=== PATIENT | male | born 1930 | race Caucasian/White ===

== ENCOUNTER 2017-10-08 12:05 | Inpatient (IN) | payer MEDICARE, BC ==
[2017-10-08] MEDS ORDERED: SODIUM CHLORIDE 0.9% 1,000 ML IV STA (12:48)
[2017-10-08] MEDS ORDERED: ONDANSETRON 4 MG/2 ML VIAL IVP STA (12:48)
[2017-10-08] MEDS ORDERED: DOPamine DRIP 800 MG in DEXTROSE/WATER 1 500ML.BAG IV ONE (12:49)
[2017-10-08 13:14] LABS: Basophils # (A) 0.1 k/uL (0-0.2); Basophils % (A) 1 %; Eosinophils # (A) 0.4 k/uL (0-0.7); Eosinophils % (A) 5 %; HCT 38.1 % (39.0-53.0); HGB 12.9 gm/dL (13.0-17.5); Lymphocytes # (A) 1.9 k/uL (1.0-4.8); Lymphocytes % (A) 30 %; MCH 33.5 pg (25.0-35.0); MCHC 33.8 g/dL (31.0-37.0); MCV 99.3 fL (80.0-100.0); Mean Platelet Volume 7.6; Monocytes # (A) 0.6 k/uL (0-1.0); Monocytes % (A) 9 %; Neutrophils # (A) 3.4 k/uL (1.3-7.7); Neutrophils % (A) 53 %; Platelet Count 169 k/uL (150-450); RBC 3.83 m/uL (4.30-5.90); RDW 13.3 % (11.5-15.5); WBC 6.5 k/uL (3.8-10.6)
--- NOTE | 2017-10-08 13:22 | CT ---
EXAMINATION TYPE: CT brain wo con for TPA DATE OF EXAM: 10/08/2017 COMPARISON: NONE HISTORY: Altered mental status CT DLP: 999.8 mGycm Automated exposure control for dose reduction was used. TECHNIQUE: CT scan of the head is performed without contrast. FINDINGS: There is no acute intracranial hemorrhage or midline shift identified. There is diffuse v entricular and sulcal prominence consistent with diffuse age-related cerebral atrophy. There is low- attenuation in the periventricular white matter consistent with chronic small vessel ischemic change. The globes are intact and the visualized sinuses are clear. IMPRESSION: No acute intracranial hemorrhage or midline shift. There is diffuse age-related cerebra l atrophy and chronic small vessel ischemic change noted.
[2017-10-08 13:23] LABS: Albumin 3.7 g/dL (3.5-5.0); Calcium 9.2 mg/dL (8.4-10.2); INR 1.4 (<1.2); Partial Thromboplastin Time 22.1 sec (22.0-30.0); Potassium 5.5 mmol/L (3.5-5.1); Prothrombin Time 13.4 sec (9.0-12.0); Total Bilirubin 0.9 mg/dL (0.2-1.3); Total Protein 6.1 g/dL (6.3-8.2)
--- NOTE | 2017-10-08 13:34 | CT ---
EXAMINATION TYPE: CT angio head neck DATE OF EXAM: 10/08/2017 HISTORY: altered mental status COMPARISON: NONE CT DLP: 327 mGycm. Automated Exposure Control for Dose Reduction was Utilized. TECHNIQUE: CTA scan of the neck is performed with IV Contrast, patient injected with 65 mL of Isovue 370, axial images are obtained, coronal and sagittal reformatted images are reviewed. Three-D recons tructed images are created on an independent workstation and reviewed. FINDINGS: The common carotid arteries, internal carotid arteries in their cervical and intracranial portions, a nd vertebral arteries are patent. The main intracranial arteries are also patent without focal stenos is. Left vertebral artery is dominant. No dissection or occlusion are identified. Posterior communica ting arteries are diminutive and not well visualized. Utilized portions of the brain are discussed on the CT brain dictation of the same date. Extensive degenerative changes of the cervical spine are no maia as well as upper lung mild paraseptal emphysematous changes and scattered atelectasis. IMPRESSION: No evidence of hemodynamically significant stenosis, dissection or focal occlusion of th e arterial vasculature of the head or neck. Small vessel peripheral thrombi remain possible. Posterio r communicating arteries are diminutive and not well-visualized.
[2017-10-08 13:53] LABS: Troponin I 0.068 ng/mL (0.000-0.034)
--- NOTE | 2017-10-08 14:53 | XR ---
EXAMINATION TYPE: XR chest 2V DATE OF EXAM: 10/08/2017 COMPARISON: 11/04/2015 TECHNIQUE: PA and lateral views submitted. HISTORY: Altered mental status FINDINGS: Arthropathy of the shoulders with diffuse osteopenia. Atherosclerotic change aorta. Cardiomegaly stab le. Small left pleural effusion and bibasilar subsegmental consolidation. Degenerative change of the spine. Chronic rib deformities noted. IMPRESSION: 1. Left lower lobe infiltrate and small effusion. 2. Stable cardiomegaly.
[2017-10-08] MEDS ORDERED: ASPIRIN 81 MG PO STA (15:50)
[2017-10-08] MEDS ORDERED: cefTRIAXone 2,000 MG in SODIUM CHLORIDE 0.9% 100 ML IVPB STA (15:50)
--- NOTE | 2017-10-08 15:50 | ED ---
Altered Mental Status HPI - General Chief Complaint: Altered Mental Status Stated Complaint: Altered Mental Time Seen by Provider: 10/08/17 12:29 Source: EMS Mode of arrival: EMS Limitations: altered mental status - History of Present Illness Initial Comments: 87 years old male not in by the he is her daughter and grandson grandson lives with him patient and grandson 98 breakfast this morning 9:00 and he was fine about 10:30 when he was talking to his grandson grandson noticed that he was quite confused and is hard time getting the words out of his mouth, grandson said he is speech is mostly very Flovent and when he arrived in the ER he was able to comprehend the information back to his ability to say what he wanted to say was quite compromised and he had severe dysarthria, patient has a history of atrial fibrillation and he is on a Coumadin for the period review of system is unremarkable otherwise - Related Data Home Medications Medication Instructions Recorded Confirmed Levothyroxine Sodium [Synthroid] 150 mcg PO DAILY 11/04/15 10/08/17 Furosemide [Lasix] 40 mg PO BID 10/08/17 10/08/17 Metoprolol Tartrate [Lopressor] 12.5 mg PO BID 10/08/17 10/08/17 Potassium Chloride ER [K-Dur 20] 20 meq PO AC-BID 10/08/17 10/08/17 Warfarin [Coumadin] 5 mg PO MOWEFR 10/08/17 10/08/17 Previous Rx's Medication Instructions Recorded Lisinopril [Zestril] 10 mg PO DAILY #30 tab 11/07/15 Allergies Allergy/AdvReac Type Severity Reaction Status Date / Time No Known Allergies Allergy Verified 10/08/17 13:06 Review of Systems ROS Statement: Those systems with pertinent positive or pertinent negative responses have been documented in the HPI. ROS Other: All systems not noted in ROS Statement are negative. Past Medical History Past Medical History: Heart Failure, Deep Vein Thrombosis (DVT), Thyroid Disorder History of Any Multi-Drug Resistant Organisms: None Reported Past Surgical History: Appendectomy, Cholecystectomy, Orthopedic Surgery Past Psychological History: No Psychological Hx Reported Smoking Status: Never smoker Past Alcohol Use History: Occasional Past Drug Use History: None Reported General Exam - General Exam Comments Initial Comments: General: The patient is awake and able to follow the commands but is unable to say the words Skin: Skin is warm and dry and no rashes or lesions are noted. Eye: Pupils are equal, round and reactive to light, extra-ocular movements are intact; there is normal conjunctiva bilaterally. Ears, nose, mouth and throat: There are moist mucous membranes Neck: The neck is supple, there is no tenderness Cardiovascular: There is a fibb noticed severe bradycardia heart rate was 45- 79 during the examination Respiratory: To auscultation bilateral, no wheezing no rhonchi no distress respiratory herbert noticed Gastrointestinal: Soft, non-distended, non-tender abdomen without masses or organomegaly noted. There is no rebound or guarding present. Bowel sounds are unremarkable. Back: There is no tenderness to palpation in the midline. There is no obvious deformity. Musculoskeletal: Normal ROM, no tenderness, There is no pedal edema. There is no calf tenderness or swelling. No cords were appreciated. Neurological: CN II-XII intact, severe dysarthria, he was trying hard there are no words coming out of his mouth. Psychiatric: Cooperative, appropriate mood & affect, normal judgment. Limitations: altered mental status Course Vital Signs 10/08/17 10/08/17 10/08/17 12:40 12:55 13:00 Temperature 97.6 F Pulse Rate 37 L 47 L 62 Respiratory 18 18 18 Rate Blood Pressure 137/85 139/84 156/89 O2 Sat by Pulse 91 L 96 100 Oximetry 10/08/17 10/08/17 10/08/17 13:15 13:30 13:45 Temperature Pulse Rate 58 L 49 L 54 L Respiratory 16 18 18 Rate Blood Pressure 169/91 156/87 158/79 O2 Sat by Pulse 100 96 95 Oximetry 10/08/17 10/08/17 14:43 15:36 Temperature Pulse Rate 97 98 Respiratory 18 18 Rate Blood Pressure 168/96 167/87 O2 Sat by Pulse 97 95 Oximetry EKG is atrial fibrillation with a ventricular rate of 14 9 QRS duration is 92 QT /QTc is 476/429 review of this EKG does not reveal any ST elevation or ST depression noticed marked bradycardia the Medical Decision Making - Lab Data Result diagrams: 10/08/17 12:57 10/08/17 12:57 Lab Results 10/08/17 10/08/17 10/08/17 Range/Units 12:57 12:57 12:57 WBC 6.5 (3.8-10.6) k/uL RBC 3.83 L (4.30-5.90) m/uL Hgb 12.9 L (13.0-17.5) gm/dL Hct 38.1 L (39.0-53.0) % MCV 99.3 (80.0-100.0) fL MCH 33.5 (25.0-35.0) pg MCHC 33.8 (31.0-37.0) g/dL RDW 13.3 (11.5-15.5) % Plt Count 169 (150-450) k/uL Neutrophils % 53 % Lymphocytes % 30 % Monocytes % 9 % Eosinophils % 5 % Basophils % 1 % Neutrophils # 3.4 (1.3-7.7) k/uL Lymphocytes # 1.9 (1.0-4.8) k/uL Monocytes # 0.6 (0-1.0) k/uL Eosinophils # 0.4 (0-0.7) k/uL Basophils # 0.1 (0-0.2) k/uL PT (9.0-12.0) sec INR (<1.2) APTT (22.0-30.0) sec Sodium 137 (137-145) mmol/L Potassium 5.5 H (3.5-5.1) mmol/L Chloride 102 (98-107) mmol/L Carbon Dioxide 28 (22-30) mmol/L Anion Gap 7 mmol/L BUN 44 H (9-20) mg/dL Creatinine 1.20 (0.66-1.25) mg/dL Est GFR (CKD-EPI)AfAm 62 (>60 ml/min/1.73 sqM) Est GFR (CKD-EPI)NonAf 54 (>60 ml/min/1.73 sqM) Glucose 75 (74-99) mg/dL Calcium 9.2 (8.4-10.2) mg/dL Total Bilirubin 0.9 (0.2-1.3) mg/dL AST 35 (17-59) U/L ALT 40 (21-72) U/L Alkaline Phosphatase 69 (38-126) U/L Total Creatine Kinase 33 L (55-170) U/L CK-MB (CK-2) 2.0 (0.0-2.4) ng/mL CK-MB (CK-2) Rel Index 6.1 Troponin I 0.068 H* (0.000-0.034) ng/mL Total Protein 6.1 L (6.3-8.2) g/dL Albumin 3.7 (3.5-5.0) g/dL 10/08/17 Range/Units 12:57 WBC (3.8-10.6) k/uL RBC (4.30-5.90) m/uL Hgb (13.0-17.5) gm/dL Hct (39.0-53.0) % MCV (80.0-100.0) fL MCH (25.0-35.0) pg MCHC (31.0-37.0) g/dL RDW (11.5-15.5) % Plt Count (150-450) k/uL Neutrophils % % Lymphocytes % % Monocytes % % Eosinophils % % Basophils % % Neutrophils # (1.3-7.7) k/uL Lymphocytes # (1.0-4.8) k/uL Monocytes # (0-1.0) k/uL Eosinophils # (0-0.7) k/uL Basophils # (0-0.2) k/uL PT 13.4 H (9.0-12.0) sec INR 1.4 H (<1.2) APTT 22.1 (22.0-30.0) sec Sodium (137-145) mmol/L Potassium (3.5-5.1) mmol/L Chloride (98-107) mmol/L Carbon Dioxide (22-30) mmol/L Anion Gap mmol/L BUN (9-20) mg/dL Creatinine (0.66-1.25) mg/dL Est GFR (CKD-EPI)AfAm (>60 ml/min/1.73 sqM) Est GFR (CKD-EPI)NonAf (>60 ml/min/1.73 sqM) Glucose (74-99) mg/dL Calcium (8.4-10.2) mg/dL Total Bilirubin (0.2-1.3) mg/dL AST (17-59) U/L ALT (21-72) U/L Alkaline Phosphatase (38-126) U/L Total Creatine Kinase (55-170) U/L CK-MB (CK-2) (0.0-2.4) ng/mL CK-MB (CK-2) Rel Index Troponin I (0.000-0.034) ng/mL Total Protein (6.3-8.2) g/dL Albumin (3.5-5.0) g/dL Critical Care Time Total Critical Care Time: 60 Critical Care Time: She came in with a stroke, like picture his dysarthria started about 2 and half hours prior to his ER visit head CT was done CT angiogram was done along and discussed with the neurologist china and silverware salesperson neurologist will get the CT and the ruled out any headaches. His INR for his chronic atrial fibrillation neurologist recommended that we continue him on aspirin 325 mg and then now MRI later a consult neurology. Noticed that his heart rate was quite low was 44-49 at that point troponin Was started and that normalized his blood pressure as well as his heart rate and then in the meantime his neurological symptoms cleared up GCS became 15 dysarthria disappeared. Is reviewed his CT head and CTA head and neck injury or unremarkable INR is 1.4 CBC is normal chest x-rays normal troponin was 0.068 and EKG had his significant bradycardia patient diagnoses are now considering his symptoms of neuro deficits resolved TIA, bradycardia and then noticed that he has a pneumonia on the chest x-ray as well elevated troponin/myocardial infarction and he also has attacked by a bee he be admitted to [facility] and neurology be consulted Dr. Wheat and cardiology be consulted and I will heparinize him at this point considering his neurological status because neurologist china and silverware salesperson recommended that we'll hold off the Coumadin do the MRI and the neurology will decide when to restart the Coumadin but he will give him aspirin 325 by mouth now Disposition Clinical Impression: TIA (transient ischemic attack), Bradycardia, Pneumonia, Myocardial infarction , Tick bite Disposition: ADMITTED IP TO THIS [facility] Condition: Good Referrals: Eber Cullen MD [Primary Care Provider] - 1-2 days
[2017-10-08] MEDS ORDERED: AZITHROMYCIN 500 MG TAB PO STA (15:51)
[2017-10-08] MEDS ORDERED: ONDANSETRON 4 MG/2 ML VIAL IVP PRN (15:53)
[2017-10-08] MEDS ORDERED: MORPHINE SULFATE 2 MG/ML SYRINGE IV PRN (15:53)
[2017-10-08] MEDS ORDERED: NALOXONE 0.4 MG/ML 1 ML VIAL IV PRN (15:53)
[2017-10-08] MEDS ORDERED: ACETAMINOPHEN TAB 325 MG TAB PO PRN (15:53)
[2017-10-08] MEDS ORDERED: cefTRIAXone IN SWFI 2,000 MG/20 ML SYRINGE IVP ONE (16:00)
[2017-10-08 17:14] LABS: Glucose,Whole Blood 81 mg/dL (75-99)
[2017-10-08] MEDS ORDERED: POTASSIUM CHLORIDE ER 20 MEQ TAB.ER PO SCH (17:30)
[2017-10-08] MEDS ORDERED: FUROSEMIDE 10 MG/ML 4 ML VIAL IV STA (17:50)
[2017-10-08] MEDS ORDERED: LORazepam 2 MG/ML INJ IV PRN ×3 (17:50)
--- NOTE | 2017-10-08 17:54 | P.HPIM ---
History of Present Illness H&P Date: 10/08/17 Chief Complaint: aphasia Patient is an 87-year-old male with a history of congestive heart failure, dyslipidemia, and A. fib who presented to the emergency department via EMS for a aphasia. The patient had been speaking with his grandson around 10: 30 AM and became unable to pronounce words and confused. At that point in time they did some generalized testing and the patient was moving all 4 limbs adequately. They called EMS with concern for stroke. On EMS arrival per family his heart rate was in the 30s and his blood pressure was low. They administered 0.5 of atropine. By the time he arrived to our ER his heart rate was 37. He was placed on a dopamine drip. Her the ER physician once his heart rate had improved his symptoms resolved. On arrival he had an NIH shook scale for was unable to talk. [facility] was contacted area he underwent a head CT which showed age-appropriate atrophy, a CTA of the head and neck which showed no significant stenosis, and an EKG which showed A. fib with slow ventricular response. Troponin came back slightly elevated at 0.068. [facility] suggested aspirin daily and holding his Coumadin until formal evaluation by neurology. Laboratory analysis showed a slightly elevated potassium at 5.5 and a low INR at 1.4. Cardiology was contacted by the ER and recommended continuing the dopamine drip. The ICU for further monitoring and care. Patient seen and examined at bedside in the emergency department. He was able to converse normally, but infrequently had to stop and think affords. Family was present at bedside and recalls the story as listed above. Patient states he was unaware that he was unable to talk. Grandson also reports that he was slightly confused. He was completely normal and had a typical day yesterday and this morning prior to 10:30 AM. He states that his confusion and difficulty speaking resolved when his heart rate improved. He denies any recent illnesses such as cough, cold, fever, flu, chest pain, shortness of breath, and palpitations. He was seen earlier this week and Dr. murray is office due to having had a tick bite approximately 9 days ago and having erythema migrans. They sent Lyme's disease testing at that point in time, but they have not yet heard back from the office. He also noted that this week he had a reoccurrence of his right knee fluid. He has the infrequently after many surgeries. He required this to be drained and had a corticosteroid injection afterwards. He sees Dr. Moody but has not had any recent medication changes. He denies any headache, blurry vision, or double vision at this point in time. He denies any neck pain. He complains of urinary frequency that is secondary to his Lasix. He has chronic loose stools due to his medications but no other complaints currently. Review of Systems Positive: + Aphasia, + confusion Pertinent positives and negatives as discussed in HPI, a complete review of systems was performed and all other systems are negative. 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 Has a medical alert system and is checked on frequently. He uses a 4 wheeled walker and a motorized scooter. - Past Family History Brother(s) Additional Family Medical History / Comment(s): osteomyelitis Mother Family Medical History: No Reported History Father Family Medical History: No Reported History Medications and Allergies Home Medications Medication Instructions Recorded Confirmed Type Levothyroxine Sodium [Synthroid] 150 mcg PO DAILY 11/04/15 10/08/17 History Lisinopril [Zestril] 10 mg PO DAILY #30 tab 11/07/15 10/08/17 Rx Furosemide [Lasix] 40 mg PO TID 10/08/17 10/08/17 History Metoprolol Tartrate [Lopressor] 12.5 mg PO TID 10/08/17 10/08/17 History Potassium Chloride ER [K-Dur 20] 20 meq PO AC-TID 10/08/17 10/08/17 History Warfarin [Coumadin] 5 mg PO MOWEFR 10/08/17 10/08/17 History Allergies Allergy/AdvReac Type Severity Reaction Status Date / Time No Known Allergies Allergy Verified 10/08/17 13:06 Physical Exam Osteopathic Statement: *. No significant issues noted on an osteopathic structural exam other than those noted in the History and Physical/Consult. Vitals: Vital Signs Temp Pulse Resp BP Pulse Ox 10/08/17 16:38 66 18 152/75 95 10/08/17 15:36 98 18 167/87 95 10/08/17 14:43 97 18 168/96 97 10/08/17 13:45 54 L 18 158/79 95 10/08/17 13:30 49 L 18 156/87 96 10/08/17 13:15 58 L 16 169/91 100 10/08/17 13:00 62 18 156/89 100 10/08/17 12:55 47 L 18 139/84 96 10/08/17 12:40 97.6 F 37 L 18 137/85 91 L Intake and Output 10/08/17 10/08/17 10/08/17 06:59 14:59 22:59 Intake Total 50.111 Balance 50.111 Intake: Intake, IV Titration 50.111 Amount DOPamine DRIP 800 mg In 50.111 Dextrose/Water 1 500ml. bag @ 10 MCG/KG/MIN 28.91 mls/hr IV .[id number] ONE Rx#:[id number] Other: Weight 77.111 kg General: non toxic, no distress, years younger than stated age, normal weight Derm: Lesion right thigh with a necrotic center and surrounding erythema no unusual ecchymoses, warm, dry Head: atraumatic, normocephalic, symmetric Eyes: EOMI, no lid lag, anicteric sclera, pupils equal round reactive to light ENT: Nose and ears atraumatic, no thrush, no pharyngeal erythema Neck: No thyromegaly, no cervical lymphadenopathy, trachea midline, supple Mouth: no lip lesion, mucus membranes moist Cardiovascular: S1-S2 regular, no murmur, positive posterior tibial pulse bilateral, 1+ bilateral lower extremity edema, capillary refill less than 2 seconds Lungs: CTA bilateral, no rhonchi, no rales , no accessory muscle use Abdominal: soft, nontender to palpation, no guarding, no appreciable organomegaly, normal bowel sounds Ext: no gross muscle atrophy, muscle strength 5 out of 5 in all 4 extremities grossly, no contractures, Neuro: CN II-XI intact, light touch intact all 4 extremities, finger to nose within normal limits, intermittent slow to speak with appropriate pronunciation but appears to have word finding difficulties Psych: Alert, oriented, appropriate affect Results CBC & Chem 7: 18 12:57 10/08/17 12:57 Labs: Abnormal Lab Results - Last 24 Hours (Table) 10/08/17 10/08/17 10/08/17 Range/Units 12:57 12:57 12:57 RBC 3.83 L (4.30-5.90) m/uL Hgb 12.9 L (13.0-17.5) gm/dL Hct 38.1 L (39.0-53.0) % PT (9.0-12.0) sec INR (<1.2) Potassium 5.5 H (3.5-5.1) mmol/L BUN 44 H (9-20) mg/dL Total Creatine Kinase 33 L (55-170) U/L Troponin I 0.068 H* (0.000-0.034) ng/mL Total Protein 6.1 L (6.3-8.2) g/dL 10/08/17 Range/Units 12:57 RBC (4.30-5.90) m/uL Hgb (13.0-17.5) gm/dL Hct (39.0-53.0) % PT 13.4 H (9.0-12.0) sec INR 1.4 H (<1.2) Potassium (3.5-5.1) mmol/L BUN (9-20) mg/dL Total Creatine Kinase (55-170) U/L Troponin I (0.000-0.034) ng/mL Total Protein (6.3-8.2) g/dL Chest x-ray: image reviewed (chest x-ray reviewed no definitive left lower lobe infiltrate seen-appears the same and his chest x-ray from 2016) CT scan - chest: report reviewed Thrombosis Risk Factor Assmnt - DVT/VTE Prophylaxis DVT/VTE Prophylaxis: Pharmacologic Prophylaxis ordered Assessment and Plan Assessment: transient ischemic attack with near resolution of a aphasia -Aspirin, statin -Neurology consultation, Coumadin on hold for telemetry neurology -Echo, telemetry, lipid profile -CTA head and neck normal -PT/OT/speech therapy evaluation -consider MRI if symptoms recur -Discharge planning symptomatic bradycardia, with baseline A. fib -Cardiology recommendations -Continue dopamine drip as per cardiology -Hold metoprolol -Telemetry -check echo -Hold Coumadin as listed above due to neurology recommendations elevated troponin without chest pain -suspect secondary to bradycardia versus TIA versus chronic elevation -Cycle troponins -ASA -Cardiology recommendations -Check cholesterol profile in a.m. Hyperkalemia -stop potassium replacement and lisinopril -Ksix X 1, IVF -Repeat basic metabolic profile in 4 hours recent tick exposure with erythema migrans (now associated with bradycardia but no sign of third-degree heart block patient also had fluid on right knee) -ID consultation -Start doxycycline 100 mg twice a day -Draw Lyme's titers ETOH abuse - CIWA - thiamine, folic acid Hypertension, controlled - may be elevated due to dopamine gtt and will need to observe -Off Lopressor -Off lisinopril -Follow blood pressures -Anticipate they may be elevated due to dopamine Hypothyroidism -Continue Synthroid -Check TSH Surrogate decision-maker: Philip Kendall , home [phone] , or rand Lorenzo [phone] CODE STATUS:DNR, okay with cardioversion, vasopressor, antiarrhythmics, intubation DVT prophylaxis: Lovenox Discussed with: Patient, family, ED physician, ED nursing Anticipated discharge: 3-4 days due TIA, bradycardia on dopamine Anticipated discharge place: home with home niko vs SNF A total of 75 minutes was spent on the care of this complex patient more than 50 % of the time was spent in counseling and care coordination.
[2017-10-08 17:59] VITALS: BMI 27.6
[2017-10-08] MEDS: DOPamine DRIP 800 MG in DEXTROSE/WATER 1 500ML.BAG IV SCH (18:00)
[2017-10-08] MEDS: THIAMINE 100 MG TAB PO SCH (18:07)
[2017-10-08 18:27] LABS: Appearance,Urine Clear (Clear); Bilirubin,Urine Negative (Negative); Blood,Urine Negative (Negative); Color,Urine Light Yellow; Glucose,Urine (UA) Negative (Negative); Ketones,Urine Negative (Negative); Leukocyte Esterase,Urine Negative (Negative); Nitrite,Urine Negative (Negative); Protein,Urine Negative (Negative); Specific Gravity,Urine 1.014 (1.001-1.035); Urobilinogen,Urine <2.0 mg/dL (<2.0)
[2017-10-08 19:08] LABS: Calcium 9.6 mg/dL (8.4-10.2); Potassium 4.3 mmol/L (3.5-5.1)
[2017-10-08] MEDS ORDERED: FUROSEMIDE 40 MG TAB PO SCH (21:00)
[2017-10-08] MEDS: ATORVASTATIN 40 MG TAB PO SCH (21:44)
[2017-10-08] MEDS: DOXYCYCLINE MONOHYDRATE 100 MG CAPSULE PO SCH (21:44)
[2017-10-09 02:01] LABS: Basophils # (A) 0.1 k/uL (0-0.2); Basophils % (A) 1 %; Eosinophils # (A) 0.3 k/uL (0-0.7); Eosinophils % (A) 4 %; HCT 40.4 % (39.0-53.0); HGB 13.3 gm/dL (13.0-17.5); Lymphocytes # (A) 1.2 k/uL (1.0-4.8); Lymphocytes % (A) 15 %; MCH 33.1 pg (25.0-35.0); MCHC 32.9 g/dL (31.0-37.0); MCV 100.5 fL (80.0-100.0); Mean Platelet Volume 7.2; Monocytes # (A) 0.7 k/uL (0-1.0); Monocytes % (A) 9 %; Neutrophils # (A) 5.6 k/uL (1.3-7.7); Neutrophils % (A) 70 %; Platelet Count 142 k/uL (150-450); RBC 4.02 m/uL (4.30-5.90); RDW 13.1 % (11.5-15.5); WBC 8.1 k/uL (3.8-10.6)
[2017-10-09 02:12] LABS: Anion Gap 11 mmol/L; Blood Urea Nitrogen 35 mg/dL (9-20); Calcium 8.9 mg/dL (8.4-10.2); Carbon Dioxide 21 mmol/L (22-30); Chloride 105 mmol/L (98-107); Cholesterol 152 mg/dL (<200); Glucose 134 mg/dL (74-99); HDL Cholesterol 63 mg/dL (40-60); LDL Cholesterol,Calculated 70 mg/dL (0-99); Magnesium 2.2 mg/dL (1.6-2.3); Phosphorus 3.6 mg/dL (2.5-4.5); Potassium 3.9 mmol/L (3.5-5.1); Sodium 137 mmol/L (137-145); Triglycerides 95 mg/dL (<150)
[2017-10-09 03:09] LABS: T4, Free (Free Thyroxine) 1.85 ng/dL (0.78-2.19)
[2017-10-09] MEDS ORDERED: LEVOTHYROXINE 75 MCG TAB PO SCH (06:30)
[2017-10-09] MEDS ORDERED: Potassium Replacement Protocol 1 EACH MISC MISCELLANE PRN (08:10)
[2017-10-09] MEDS: ASPIRIN 325 MG TAB PO SCH (08:26)
[2017-10-09] MEDS: PANTOPRAZOLE 40 MG/10 ML VIAL IV SCH (08:26)
[2017-10-09] MEDS: DOXYCYCLINE MONOHYDRATE 100 MG CAPSULE PO SCH ×2 (08:26→20:05)
--- NOTE | 2017-10-09 08:34 | P.PN ---
Subjective Progress Note Date: 10/09/17 Principal diagnosis: aphasia Patient is an 87-year-old male with a history of congestive heart failure, dyslipidemia, and A. fib who presented to the emergency department via EMS for a aphasia. The patient had been speaking with his grandson around 10: 30 AM and became unable to pronounce words and confused. At that point in time they did some generalized testing and the patient was moving all 4 limbs adequately. They called EMS with concern for stroke. On EMS arrival per family his heart rate was in the 30s and his blood pressure was low. They administered 0.5 of atropine. By the time he arrived to our ER his heart rate was 37. He was placed on a dopamine drip. Per the ER physician once his heart rate had improved his symptoms resolved. On arrival he had an NIH stroke scale 4 was unable to talk. [facility] was contacted and he underwent a head CT which showed age-appropriate atrophy, a CTA of the head and neck which showed no significant stenosis, and an EKG which showed A. fib with slow ventricular response. Troponin came back slightly elevated at 0.068. [facility] suggested aspirin daily and holding his Coumadin until formal evaluation by neurology. Laboratory analysis showed a slightly elevated potassium at 5.5 and a low INR at 1.4. Cardiology was contacted by the ER and recommended continuing the dopamine drip. He was admitted to the ICU for further monitoring and care. Overnight on 10/08 with the dopamine gtt he had one 7 beat run of v-tach. He was anxious over the evening but has otherwise done well. Patient seen and examined. He has no complaints at this time. He was anxious last night as he accidentally turned off his bed and could not move. No chest discomfort, palpitations, nausea, shortness of breath. He denies being light headed or dizzy. Feeling well other herbert. Nursing present at bedside. Objective - Vital Signs Vital signs: Vital Signs Temp 98.1 F 10/09/17 08:00 Pulse 62 10/09/17 08:00 Resp 11 L 10/09/17 08:00 BP 122/64 10/09/17 08:00 Pulse Ox 100 10/09/17 08:00 Intake & Output 10/08/17 10/09/17 10/09/17 18:59 06:59 18:59 Intake Total 411.630 1378 504.604 Output Total 350 2600 0 Balance -99.889 -1080 504.604 Weight 84.9 kg 94.2 kg Intake: IV 200 1200 200 Sodium Chloride 0.9% 1, 200 1200 200 000 ml @ 100 mls/hr IV . Q10H [facility] Rx#:[id number] Intake, IV Titration 50.111 304.604 Amount DOPamine DRIP 800 mg In 50.111 Dextrose/Water 1 500ml. bag @ 10 MCG/KG/MIN 28.91 mls/hr IV .[id number] ONE Rx#:[id number] DOPamine DRIP 800 mg In 304.604 Dextrose/Water 1 500ml. bag @ 7.5 MCG/KG/MIN 21. 68 mls/hr IV .Q23H4M [facility] Rx#:[id number] Oral 320 Output: Urine 350 2600 0 Other: Voiding Method Urinal Urinal Urinal # Voids 1 1 # Bowel Movements 0 - Exam General: non toxic, no distress, appears at stated age Derm: warm, dry Head: atraumatic, normocephalic, symmetric Eyes: EOMI, no lid lag, anicteric sclera Mouth: no lip lesion, mucus membranes moist Cardiovascular: S1S2 irreg, no murmur, positive posterior tibial pulse bilateral , Lungs: CTA bilateral, no rhonchi, no rales , no accessory muscle use Abdominal: soft, nontender to palpation, no guarding, no appreciable organomegaly Ext: no gross muscle atrophy, no edema, no contractures Neuro: CN II-XI grossly intact, no focal neuro deficits, still with slow speaking a searching for words but intact pronunciation. Psych: Alert, oriented, appropriate affect - Labs CBC & Chem 7: 10/09/17 01:35 10/09/17 01:35 Labs: Abnormal Lab Results - Last 24 Hours (Table) 10/08/17 10/08/17 10/08/17 Range/Units 12:57 12:57 12:57 RBC 3.83 L (4.30-5.90) m/uL Hgb 12.9 L (13.0-17.5) gm/dL Hct 38.1 L (39.0-53.0) % MCV (80.0-100.0) fL Plt Count (150-450) k/uL PT (9.0-12.0) sec INR (<1.2) Potassium 5.5 H (3.5-5.1) mmol/L Carbon Dioxide (22-30) mmol/L BUN 44 H (9-20) mg/dL Glucose (74-99) mg/dL Total Creatine Kinase 33 L (55-170) U/L Troponin I 0.068 H* (0.000-0.034) ng/mL Total Protein 6.1 L (6.3-8.2) g/dL HDL Cholesterol (40-60) mg/dL TSH (0.465-4.680) mIU/L 10/08/17 10/08/17 10/08/17 Range/Units 12:57 18:43 18:43 RBC (4.30-5.90) m/uL Hgb (13.0-17.5) gm/dL Hct (39.0-53.0) % MCV (80.0-100.0) fL Plt Count (150-450) k/uL PT 13.4 H (9.0-12.0) sec INR 1.4 H (<1.2) Potassium (3.5-5.1) mmol/L Carbon Dioxide (22-30) mmol/L BUN 39 H (9-20) mg/dL Glucose 108 H (74-99) mg/dL Total Creatine Kinase (55-170) U/L Troponin I 0.081 H* (0.000-0.034) ng/mL Total Protein (6.3-8.2) g/dL HDL Cholesterol (40-60) mg/dL TSH (0.465-4.680) mIU/L 10/09/17 10/09/17 10/09/17 Range/Units 01:35 01:35 01:35 RBC 4.02 L (4.30-5.90) m/uL Hgb (13.0-17.5) gm/dL Hct (39.0-53.0) % MCV 100.5 H (80.0-100.0) fL Plt Count 142 L (150-450) k/uL PT (9.0-12.0) sec INR (<1.2) Potassium (3.5-5.1) mmol/L Carbon Dioxide 21 L (22-30) mmol/L BUN 35 H (9-20) mg/dL Glucose 134 H (74-99) mg/dL Total Creatine Kinase (55-170) U/L Troponin I 0.142 H* (0.000-0.034) ng/mL Total Protein (6.3-8.2) g/dL HDL Cholesterol 63 H (40-60) mg/dL TSH <0.015 L (0.465-4.680) mIU/L Assessment and Plan Assessment: Aphasia- possible due to hypoprefusion from low HR/BP vs TIA -Aspirin, statin -Neurology consultation pending, Coumadin on hold for telemetry neurology -Echo, telemetry, - lipid profile with LDL at goal -CTA head and neck normal -PT/OT/speech therapy evaluation -consider MRI if symptoms recur -Discharge planning symptomatic bradycardia, with baseline A. fib -Cardiology recommendations -Continue dopamine drip as per cardiology -Hold metoprolol -Telemetry -check echo -Hold Coumadin as listed above due to neurology recommendations elevated troponin without chest pain -elevating slightly will cycle one additional -ASA -Cardiology recommendations recent tick exposure with erythema migrans (now associated with bradycardia but no sign of third-degree heart block patient also had fluid on right knee) -ID consultation - doxycycline 100 mg twice a day - Lyme's titers pending ETOH abuse - CIWA - thiamine, folic acid Hypertension, controlled -Off Lopressor -Off lisinopril -Follow blood pressures Hypothyroidism -Continue Synthroid -TSH undetectable, will repeat in AM to ensure accurate results and hold todays dose of levothyroxine. Hyperkalemia, resolved Surrogate decision-maker: Philip Kendall , home [phone] , or rand Lorenzo [phone] CODE STATUS:DNR, okay with cardioversion, vasopressor, antiarrhythmics, intubation DVT prophylaxis: Lovenox Discussed with: Patient, family, ED physician, ED nursing Anticipated discharge: 3-4 days due TIA, bradycardia on dopamine Anticipated discharge place: home with home niko vs SNF A total of 75 minutes was spent on the care of this complex patient more than 50 % of the time was spent in counseling and care coordination.
[2017-10-09] MEDS ORDERED: POTASSIUM CHLORIDE ER 20 MEQ TAB.ER PO SCH (09:00)
[2017-10-09] MEDS ORDERED: LISINOPRIL 10 MG TAB PO SCH (09:00)
[2017-10-09 09:15] LABS: INR 1.5 (<1.2)
[2017-10-09] MEDS: FOLIC ACID 1 MG TAB PO SCH (11:21)
[2017-10-09] MEDS: THIAMINE 100 MG TAB PO SCH ×2 (11:21→17:47)
[2017-10-09] MEDS: DOPamine DRIP 800 MG in DEXTROSE/WATER 1 500ML.BAG IV SCH (13:08)
--- NOTE | 2017-10-09 13:33 | P.CNPUL ---
History of Present Illness Consult date: 10/09/17 Requesting physician: Carmen Cross Reason for consult: other (ICU management) Chief complaint: Altered mental status and difficulty with speech History of present illness: This is an 87-year-old white male brought in by his grandson who lives with them , he noticed that he became suddenly confused, and had significant difficulty getting the words out of his mouth. Apparently the patient is usually very fluent, and he never had any issues like this before. No previous history of CVA, no previous history of TIA, patient is known to have history of chronic atrial fibrillation, maintained on Coumadin and on beta blockers. Workup in the ER included a CT angiogram of the head and neck, and it was relatively unremarkable, did not explain the clinical presentation. EKG showed atrial fibrillation with very slow ventricular response, chest x-ray showed left lower lobe atelectasis, and cardiomegaly. In the meantime his symptoms of aphasia have completely resolved. And according to the patient it lasted about 2 hours. Workup for acute CVA was basically unremarkable. According to EMS, his heart rate was in the 13 range and he had a low blood pressure while in transfer. Patient received 1 dose of atropine, and by the time he arrived to the ER his heart rate remained as low as 37, started on dopamine drip troponin was slightly elevated, cardiology and neurology were consulted, patient was admitted to the intensive care unit, on dopamine drip, and I was asked to see him on consultation. Upon my evaluation today, patient is relatively asymptomatic, denies any specific complaints, his speech is back to normal denies any headaches, no blurred vision, no dizziness, no chest pain. Patient remains on dopamine, and his heart rate remains relatively in the low range. Mostly in the 50s and 60s. His home meds including metoprolol and lisinopril remains on hold. And his potassium is also on hold. Review of Systems 14 point review of systems were obtained, please refer to pertinent positives in HPI, otherwise remaining systems are negative. Presently the patient is asymptomatic. 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, bilateral cataract replacement Past Anesthesia/Blood Transfusion Reactions: No Reported Reaction Past Psychological History: No Psychological Hx Reported Smoking Status: Never smoker Past Alcohol Use History: Daily Additional Past Alcohol Use History / Comment(s): drinks 3 beers every night Past Drug Use History: None Reported - Past Family History Brother(s) Additional Family Medical History / Comment(s): osteomyelitis Mother Family Medical History: No Reported History Father Family Medical History: No Reported History Medications and Allergies Home Medications Medication Instructions Recorded Confirmed Type Levothyroxine Sodium [Synthroid] 150 mcg PO DAILY 11/04/15 10/08/17 History Lisinopril [Zestril] 10 mg PO DAILY #30 tab 11/07/15 10/08/17 Rx Furosemide [Lasix] 40 mg PO TID 10/08/17 10/08/17 History Metoprolol Tartrate [Lopressor] 12.5 mg PO TID 10/08/17 10/08/17 History Potassium Chloride ER [K-Dur 20] 20 meq PO AC-TID 10/08/17 10/08/17 History Warfarin [Coumadin] 5 mg PO MOWEFR 10/08/17 10/08/17 History Allergies Allergy/AdvReac Type Severity Reaction Status Date / Time No Known Allergies Allergy Verified 10/08/17 13:06 Physical Exam Vitals: Vital Signs Temp Pulse Pulse Resp BP BP Pulse Ox 10/09/17 13:00 58 L 21 137/79 100 10/09/17 12:30 60 21 137/79 100 10/09/17 12:00 98.0 F 77 20 129/75 98 10/09/17 11:30 67 20 129/75 97 10/09/17 11:00 63 14 111/64 100 10/09/17 10:30 53 L 27 H 111/64 100 10/09/17 10:00 62 18 107/58 100 10/09/17 09:30 53 L 21 107/58 100 10/09/17 09:24 100 10/09/17 09:00 57 L 25 H 101/58 100 10/09/17 08:30 63 16 101/58 100 10/09/17 08:00 98.1 F 62 11 L 122/64 100 10/09/17 07:30 56 L 16 122/64 100 10/09/17 07:00 55 L 22 113/68 100 10/09/17 06:30 66 23 113/68 99 10/09/17 06:00 66 25 H 116/70 100 10/09/17 05:30 70 20 116/70 100 10/09/17 05:00 57 L 19 125/66 100 10/09/17 04:30 57 L 18 125/66 100 10/09/17 04:00 98.2 F 60 16 107/60 100 10/09/17 03:30 63 20 107/60 99 10/09/17 02:30 67 24 121/69 92 L 10/09/17 02:00 73 20 114/61 95 10/09/17 01:00 66 18 111/66 97 10/09/17 00:00 98.6 F 71 28 H 112/54 98 10/08/17 23:00 70 23 112/56 100 10/08/17 22:00 69 16 140/77 97 10/08/17 21:30 51 L 13 140/77 100 10/08/17 21:16 55 L 15 128/70 99 10/08/17 21:00 56 L 18 128/70 100 10/08/17 20:00 98.5 F 68 18 137/74 96 10/08/17 19:54 93 L 10/08/17 19:10 64 9 L 138/70 99 10/08/17 19:00 59 L 18 138/70 99 10/08/17 18:50 63 18 138/70 100 10/08/17 18:40 61 19 138/70 100 10/08/17 18:30 64 13 138/70 94 L 10/08/17 18:20 67 21 138/70 95 10/08/17 18:10 57 L 23 142/73 96 10/08/17 18:00 63 18 142/73 94 L 10/08/17 17:50 67 18 142/73 96 10/08/17 17:40 59 L 22 142/73 94 L 10/08/17 17:30 55 L 18 142/73 98 10/08/17 17:20 98.5 F 67 22 142/73 10/08/17 17:13 74 10/08/17 16:38 66 18 152/75 95 10/08/17 16:33 98.5 F 56 L 18 140/79 99 10/08/17 15:36 98 18 167/87 95 10/08/17 14:43 97 18 168/96 97 10/08/17 13:45 54 L 18 158/79 95 10/08/17 13:30 49 L 18 156/87 96 Intake and Output 10/08/17 10/09/17 10/09/17 22:59 06:59 14:59 Intake Total 870.439 1883 1324.811 Output Total 1700 1250 675 Balance -929.889 -250 649.811 Intake: IV 600 800 250 Sodium Chloride 0.9% 1, 600 800 250 000 ml @ 100 mls/hr IV . Q10H [facility] Rx#:[id number] Intake, IV Titration 50.111 414.811 Amount DOPamine DRIP 800 mg In 50.111 Dextrose/Water 1 500ml. bag @ 10 MCG/KG/MIN 28.91 mls/hr IV .[id number] [facility] Rx#:[id number] DOPamine DRIP 800 mg In 414.811 Dextrose/Water 1 500ml. bag @ 7.5 MCG/KG/MIN 21. 68 mls/hr IV .Q23H4M [facility] Rx#:[id number] Oral 120 200 660 Output: Urine 1700 1250 675 Other: Voiding Method Urinal Urinal Urinal # Voids 1 1 # Bowel Movements 0 Weight 84.9 kg 94.2 kg Physical Exam: Revealed an 87-year-old white male, in no form of respiratory distress. Head: Atraumatic, normocephalic. HEENT:[Neck is supple.] [No neck masses.] [No thyromegaly.] [No JVD.] PERRLA, EOMI, moist mucous membranes. Chest: [Clear throughout, no crackles, no rhonchi, no wheezes.] No chest wall tenderness, symmetrical expansion noted bilaterally. Cardiac Exam: [Irregular irregular rhythm, slow rate, Normal S1 and S2, no S3 gallop, no murmur.] Abdomen: [Soft, nontender, no megaly, no rebound, no guarding, normal bowel sounds.] Extremities: [No clubbing, no edema, no cyanosis.] Neurological Exam: [No focal neurologic deficit.] Alert and oriented 3. Psychiatric: Normal mood affect and mental status examination. Musculoskeletal: No deformities noted, range of motion is normal. Results - Laboratory Findings CBC and BMP: 10/09/17 01:35 10/09/17 01:35 PT/INR, D-dimer PT 14.0 sec (9.0-12.0) H 10/09/17 08:52 INR 1.5 (<1.2) H 10/09/17 08:52 Abnormal lab findings: Abnormal Labs 10/08/17 10/08/17 10/08/17 12:57 12:57 12:57 RBC 3.83 L Hgb 12.9 L Hct 38.1 L MCV Plt Count PT INR Potassium 5.5 H Carbon Dioxide BUN 44 H Glucose Total Creatine Kinase 33 L Troponin I 0.068 H* Total Protein 6.1 L HDL Cholesterol TSH 10/08/17 10/08/17 10/08/17 12:57 18:43 18:43 RBC Hgb Hct MCV Plt Count PT 13.4 H INR 1.4 H Potassium Carbon Dioxide BUN 39 H Glucose 108 H Total Creatine Kinase Troponin I 0.081 H* Total Protein HDL Cholesterol TSH 10/09/17 10/09/17 10/09/17 01:35 01:35 01:35 RBC 4.02 L Hgb Hct MCV 100.5 H Plt Count 142 L PT INR Potassium Carbon Dioxide 21 L BUN 35 H Glucose 134 H Total Creatine Kinase Troponin I 0.142 H* Total Protein HDL Cholesterol 63 H TSH <0.015 L 10/09/17 10/09/17 08:52 08:52 RBC Hgb Hct MCV Plt Count PT 14.0 H INR 1.5 H Potassium Carbon Dioxide BUN Glucose Total Creatine Kinase Troponin I 0.163 H* Total Protein HDL Cholesterol TSH - Diagnostic Findings CT scan - chest: image reviewed (Cardiomegaly, and minimal atelectasis is noted. Especially at the left base. No evidence of pneumonia and no evidence of congestive heart failure) Assessment and Plan Assessment: Impression: 1 acute transient ischemic attack, completely resolved at present. Workup has been mostly nondiagnostic for CVA. 2 symptomatic bradycardia, and hypotension, likely medications induced. we'll continue to hold his beta blockers, and his lisinopril for low blood pressure, continue dopamine at a low rate. 3 nonspecific elevation of troponin, patient is yet to be seen by cardiology on consultation. 4 acute hyperkalemia, medications induced, patient is on potassium at home. Combination of lisinopril and potassium may cause hyperkalemia. Both are presently on hold. 5 history of hypertension, presently the patient is requiring dopamine for low heart rate and low blood pressure, and his low pressure medications are on hold. 6 history of hypothyroidism, patient is maintained on levothyroxine. Recommendation: Consider transferring the patient out of the ICU to a monitor bed on selective, patient will be seen by cardiology and his cardiac issues will be addressed accordingly. We'll continue to follow. Time with Patient: Greater than 30
--- NOTE | 2017-10-09 13:47 | CONS ---
SLOAN Aviles is an 87-year-old gentleman who follows with me regularly in the outpatient setting, has history of chronic atrial fibrillation, dyslipidemia, and congestive heart failure. The patient had a sudden onset, inability to speak and confusion and subsequently developed some generalized weakness. EMS was called and brought to the hospital. The patient had heart rates in the 30s and his blood pressure was apparently low, received 0.5 mg of atropine and was brought to the emergency room. I spoke to Dr. Cross, the hospitalist who was taking care of the patient this morning. After evaluating the patient, I believe the neurological event that the patient had at home is probably due to TIA. The slow heart rate and the low blood pressure do not explain transient inability to speak. The patient did not have any syncope. At the time of my evaluation he appears comfortable at rest and is free of symptoms. He is on Coumadin but was inadequately anticoagulated on admission. The patient's neurological event is probably thromboembolic in origin and as soon as the neurologists are comfortable, we should start him on IV heparin and I am going to put him on one of the novel anticoagulants as he has failed Coumadin. At the moment patient is on dopamine. Heart rates are in the 50s. I am going to gradually cut back and stop it. If he still remains bradycardic and hypotensive, I might consider permanent pacemaker on him. PAST MEDICAL HISTORY: Significant for congestive heart failure, chronic atrial fibrillation, hypothyroidism. MEDICATIONS: At home included Coumadin, K-Dur, Lopressor, Zestril, Synthroid, and Lasix. ALLERGIES: There are no known drug allergies. FAMILY HISTORY: Negative for premature coronary artery disease. SOCIAL HISTORY: Negative for current smoking, EtOH abuse, or drug abuse. REVIEW OF SYSTEMS: HEENT is unremarkable. CARDIAC: As described above. RESPIRATORY: Negative. GI: Negative. GENITOURINARY: Negative. ALLERGY: Negative. SKIN/MUSCULOSKELETAL: Negative. HEMATOLOGICAL: Negative. DERM: Negative. CONSTITUTIONAL: Negative. ONCOLOGICAL: Negative. CRATER AND PACKER: As described above. EXAM: He is comfortable at rest. Vital signs are stable. There is no jugular venous distention. Carotid upstroke is normal. There is no bruit. Chest exam reveals good air entry bilaterally. Heart exam reveals first and second heart sounds, irregular rhythm and a systolic murmur at the left lower sternal border. Abdomen is soft. Exam of extremities did not reveal any edema. Peripheral pulses are felt. LABS: Labs show an INR of 1.5. BUN is 35, creatinine is 1.1. Troponins are mildly elevated at 0.08, 0.1 and 0.16. TSH is low with normal free T4. ASSESSMENT: 1. Transient ischemic attack, probably thromboembolic in origin secondary to inadequate anticoagulation. 2. Chronic atrial fibrillation with slow ventricular rate. 3. History of congestive heart failure. 4. Elevated troponins. PLAN: I am going to gradually taper and stop the dopamine. I will watch minute in the ICU for now. We need to start him on IV heparin and one of the novel anticoagulants. Elevated troponins are of unclear clinical significance. Could be related to hypotension. He does not require invasive angiography at this time. I will obtain a 2D echo on him. The patient remains bradycardic in spite of being off the beta blockers and off the dopamine. He will benefit from a permanent pacemaker. TARUN / MINERVA: [id number] /
[2017-10-09] MEDS ORDERED: HEPARIN SODIUM,PORCINE 5,000 UNIT/ML 1 ML VIAL IV ONE (15:42)
[2017-10-09] MEDS ORDERED: HEPARIN SODIUM,PORCINE 5,000 UNIT/ML 1 ML VIAL IV PRN (15:42)
[2017-10-09] MEDS: HEPARIN SODIUM,PORCINE/D5W PMX 25,000 UNIT in DEXTROSE/WATER 1 500ML.BAG IV SCH (16:21)
--- NOTE | 2017-10-09 16:27 | P.CNNES ---
History of Present Illness Consult date: 10/09/17 Requesting physician: Keira Roberts Reason for Consult: TIA Chief complaint: Altered mental status- wordfinding difficulty History of Present Illness: Neurology is consulting on a 87 year old male who became quite confused and had a difficult time with wordfinding at home. Patient was brought to the ED and evaluated. Patient was able to comprehend but was unable to respond to questions and had severe dysarthria. Patient has hx of a-fibrillation and is on coumadin at home. Patient was evaluated with telestroke. CT angio and CT brain were done while in the ED. Remote neurologist advised maintaining 325 aspirin. Patient was noted to have bradycardia, pneumonia as well. He also had elevated troponins and DC. Patient was admitted to the ICU. Since admission and prior to consult, patient' s symptoms have resolved per patient and nursing. Patient was AOx3, in no acute distress resting in bed comfortably. Patient was due to be seen by cardiology as well. Patient states he has no remaining deficits. He is able to speak and comprehend as well as respond appropriately. He has no unilateralizing weakness or unilateral numbness or tingling. 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, bilateral cataract replacement Past Anesthesia/Blood Transfusion Reactions: No Reported Reaction Past Psychological History: No Psychological Hx Reported Smoking Status: Never smoker Past Alcohol Use History: Daily Additional Past Alcohol Use History / Comment(s): drinks 3 beers every night Past Drug Use History: None Reported - Past Family History Brother(s) Additional Family Medical History / Comment(s): osteomyelitis Mother Family Medical History: No Reported History Father Family Medical History: No Reported History Medications and Allergies Home Medications Medication Instructions Recorded Confirmed Type Levothyroxine Sodium [Synthroid] 150 mcg PO DAILY 11/04/15 10/08/17 History Lisinopril [Zestril] 10 mg PO DAILY #30 tab 11/07/15 10/08/17 Rx Furosemide [Lasix] 40 mg PO TID 10/08/17 10/08/17 History Metoprolol Tartrate [Lopressor] 12.5 mg PO TID 10/08/17 10/08/17 History Potassium Chloride ER [K-Dur 20] 20 meq PO AC-TID 10/08/17 10/08/17 History Warfarin [Coumadin] 5 mg PO MOWEFR 10/08/17 10/08/17 History Allergies Allergy/AdvReac Type Severity Reaction Status Date / Time No Known Allergies Allergy Verified 10/08/17 13:06 Physical Examination - Vital Signs Vital Signs: Vital Signs Temp Pulse Pulse Resp BP BP Pulse Ox 10/09/17 15:30 69 22 115/81 98 10/09/17 15:00 43 L 16 113/65 100 10/09/17 14:30 50 L 18 113/65 94 L 10/09/17 14:00 54 L 18 87/51 100 10/09/17 13:30 52 L 16 87/51 100 10/09/17 13:00 58 L 21 137/79 100 10/09/17 12:30 60 21 137/79 100 10/09/17 12:00 98.0 F 77 20 129/75 98 10/09/17 11:30 67 20 129/75 97 10/09/17 11:00 63 14 111/64 100 10/09/17 10:30 53 L 27 H 111/64 100 10/09/17 10:00 62 18 107/58 100 10/09/17 09:30 53 L 21 107/58 100 10/09/17 09:24 100 10/09/17 09:00 57 L 25 H 101/58 100 10/09/17 08:30 63 16 101/58 100 10/09/17 08:00 98.1 F 62 11 L 122/64 100 10/09/17 07:30 56 L 16 122/64 100 10/09/17 07:00 55 L 22 113/68 100 10/09/17 06:30 66 23 113/68 99 10/09/17 06:00 66 25 H 116/70 100 10/09/17 05:30 70 20 116/70 100 10/09/17 05:00 57 L 19 125/66 100 10/09/17 04:30 57 L 18 125/66 100 10/09/17 04:00 98.2 F 60 16 107/60 100 10/09/17 03:30 63 20 107/60 99 10/09/17 02:30 67 24 121/69 92 L 10/09/17 02:00 73 20 114/61 95 10/09/17 01:00 66 18 111/66 97 10/09/17 00:00 98.6 F 71 28 H 112/54 98 10/08/17 23:00 70 23 112/56 100 10/08/17 22:00 69 16 140/77 97 10/08/17 21:30 51 L 13 140/77 100 10/08/17 21:16 55 L 15 128/70 99 10/08/17 21:00 56 L 18 128/70 100 10/08/17 20:00 98.5 F 68 18 137/74 96 10/08/17 19:54 93 L 10/08/17 19:10 64 9 L 138/70 99 10/08/17 19:00 59 L 18 138/70 99 10/08/17 18:50 63 18 138/70 100 10/08/17 18:40 61 19 138/70 100 10/08/17 18:30 64 13 138/70 94 L 10/08/17 18:20 67 21 138/70 95 10/08/17 18:10 57 L 23 142/73 96 10/08/17 18:00 63 18 142/73 94 L 10/08/17 17:50 67 18 142/73 96 10/08/17 17:40 59 L 22 142/73 94 L 10/08/17 17:30 55 L 18 142/73 98 10/08/17 17:20 98.5 F 67 22 142/73 10/08/17 17:13 74 10/08/17 16:38 66 18 152/75 95 10/08/17 16:33 98.5 F 56 L 18 140/79 99 Intake and Output 10/09/17 10/09/17 10/09/17 06:59 14:59 22:59 Intake Total 1000 1334.811 130 Output Total 1250 875 0 Balance -250 459.811 130 Intake: IV 800 260 10 Sodium Chloride 0.9% 1, 800 260 10 000 ml @ 100 mls/hr IV . Q10H [facility] Rx#:[id number] Intake, IV Titration 414.811 Amount DOPamine DRIP 800 mg In 414.811 Dextrose/Water 1 500ml. bag @ 7.5 MCG/KG/MIN 21. 68 mls/hr IV .Q23H4M [facility] Rx#:[id number] Oral 200 660 120 Output: Urine 1250 875 0 Other: Voiding Method Urinal Urinal # Voids 1 # Bowel Movements 0 Weight 94.2 kg General appearance: Alert & oriented x3, no apparent distress. Head: Atraumatic, normocephalic, normal inspection Eyes: PERRLA, EOMI. Absent scleral icterus, conjunctival injection, nystagmus , periorbital swelling. Ear, nose and throat: Normal exam, mucous membranes moist Neck: Normal inspection, absent tenderness, lymphadenopathy. Respiratory: No increased work of breathing Cardiovascular: telemetry monitored GI/abdominal: no tenderness, no guarding, no rebound, no rigidity. Extremities: full range of motion in all 4 extremities Neurological: cranial nerves II through XII intact no lateralizing weakness no seizure activity noted on physical exam no pronator drift and no nystagmus. strength in all 4 extremities is equal Sensation all 4 extremiti Psychological: Mood and affect appropriate for setting. Results - Laboratory Findings CBC and BMP: 10/09/17 01:35 10/09/17 01:35 Abnormal Lab Findings: Abnormal Labs 10/08/17 10/08/17 10/08/17 12:57 12:57 12:57 RBC 3.83 L Hgb 12.9 L Hct 38.1 L MCV Plt Count PT INR Potassium 5.5 H Carbon Dioxide BUN 44 H Glucose Total Creatine Kinase 33 L Troponin I 0.068 H* Total Protein 6.1 L HDL Cholesterol TSH 10/08/17 10/08/17 10/08/17 12:57 18:43 18:43 RBC Hgb Hct MCV Plt Count PT 13.4 H INR 1.4 H Potassium Carbon Dioxide BUN 39 H Glucose 108 H Total Creatine Kinase Troponin I 0.081 H* Total Protein HDL Cholesterol TSH 10/09/17 10/09/17 10/09/17 01:35 01:35 01:35 RBC 4.02 L Hgb Hct MCV 100.5 H Plt Count 142 L PT INR Potassium Carbon Dioxide 21 L BUN 35 H Glucose 134 H Total Creatine Kinase Troponin I 0.142 H* Total Protein HDL Cholesterol 63 H TSH <0.015 L 10/09/17 10/09/17 08:52 08:52 RBC Hgb Hct MCV Plt Count PT 14.0 H INR 1.5 H Potassium Carbon Dioxide BUN Glucose Total Creatine Kinase Troponin I 0.163 H* Total Protein HDL Cholesterol TSH Assessment and Plan (1) TIA (transient ischemic attack) Current Visit: Yes Status: Acute Code(s): G45.9 - TRANSIENT CEREBRAL ISCHEMIC ATTACK, UNSPECIFIED SNOMED Code(s): 470176115 (2) Bradycardia Current Visit: Yes Status: Acute Code(s): R00.1 - BRADYCARDIA, UNSPECIFIED SNOMED Code(s): 96465207 (3) Afib Current Visit: No Status: Acute Code(s): I48.91 - UNSPECIFIED ATRIAL FIBRILLATION SNOMED Code(s): 66830773 (4) Myocardial infarction Current Visit: Yes Status: Acute Code(s): I21.9 - ACUTE MYOCARDIAL INFARCTION, UNSPECIFIED SNOMED Code(s): 26692531 (5) Pneumonia Current Visit: Yes Status: Acute Code(s): J18.9 - PNEUMONIA, UNSPECIFIED ORGANISM SNOMED Code(s): 241219526 Plan: transient ischemic attack Atrial fibrillation Bradycardia Pneumonia Although the patient did have bradycardia, A-fibrillation and altered mental status, the patient's symptoms are more consistent with TIA given the expressive aphasia and word-finding difficulty. The patient's CT Brain was negative for any acute process. However, chronic small vessel ischemic disease is noted. Patient is on coumadin at home and on 325 mg aspirin currently. We will defer to cardiology regarding thinner use at this time. Patient will remain on a bloodthinning agent at discharge for risk reduction. Patient's lipid panel was satisfactory and no antihyperlipidemic medication is warranted at this point. EEG is still pending. CT Angio noted no evidence of hemodynamically significant stenosis as well. Neurology will clear the patient for discharge from a neurological standpoint once EEG is taken. Patient can follow up in our office in 10-14 days post discharge for out patient management. I have discussed the plan of care with the physician prior to implementation and he agrees with the plan as implemented.
[2017-10-09 16:36] LABS: Basophils % (A) 1 %; Eosinophils # (A) 0.4 k/uL (0-0.7); Eosinophils % (A) 6 %; HGB 13.5 gm/dL (13.0-17.5); Lymphocytes # (A) 1.3 k/uL (1.0-4.8); Lymphocytes % (A) 17 %; MCH 33.1 pg (25.0-35.0); MCHC 32.9 g/dL (31.0-37.0); MCV 100.7 fL (80.0-100.0); Mean Platelet Volume 7.1; Monocytes # (A) 0.6 k/uL (0-1.0); Monocytes % (A) 8 %; Neutrophils % (A) 67 %; Platelet Count 170 k/uL (150-450); RBC 4.07 m/uL (4.30-5.90); RDW 13.2 % (11.5-15.5); WBC 7.5 k/uL (3.8-10.6)
[2017-10-09] MEDS: ATORVASTATIN 40 MG TAB PO SCH (20:05)
--- NOTE | 2017-10-09 22:41 | CONS ---
CONSULTATION DATE OF SERVICE: 10/09/2017. REASON FOR CONSULTATION: Tick exposure and erythema migrans. HISTORY OF PRESENT ILLNESS: The patient is an 87-year-old male who did have a tick exposure about a week ago. The patient said that he noticed to have a possible scab on his right leg that he tried to pull off and apparently has been there for about 4 days. The patient's grandson looked at it and thought it was a tick and he pulled off with a tweezer. The patient subsequently developed erythema around that area. The patient denies having any significant pain into that site or any drainage. No fever. No chills or induration of the part of the body. The patient was brought into the ER at [facility] yesterday after apparently the patient says that he was unable to find any words when he was talking to the family, the words would not come out of his mouth. EMS was called in for possible stroke. On arrival of the EMS, the patient noticed to be bradycardic with heart rate in 30s. The patient did receive a dose of atropine and on arrival to the ER, the patient heart rate was 37. Subsequently the patient has been evaluated and admitted to the ICU on a dopamine drip with subsequent improvement in his heart rate as well as the hypertension. Patient mentation is back to his baseline. Currently, he denies having any headaches. No URI symptoms. No chest pain or shortness of breath or any cough. No abdominal pain or any diarrhea. REVIEW OF SYSTEMS: CONSTITUTIONAL: Positive for weakness but no high-grade fever. Eyes no complaint. ENT no complaint. Respiratory no complaint. Cardiovascular as per HPI. Genitourinary no complaint. Gastrointestinal: No complaint. Musculoskeletal no complaint. INTEGUMENTARY: As per HPI. PSYCHOLOGICAL: No complaint. Endocrine: No complaint. Neurological as per HPI. PAST MEDICAL HISTORY: Significant for heart failure, DVT, hypothyroidism, atrial fibrillation, hypertension. PAST SURGICAL HISTORY: Appendectomy, cholecystectomy, right knee replacement, surgery. SOCIAL HISTORY: No history of smoking. Positive for drinking about 3 drinks every night. No drug use. Lives with his grandson. FAMILY HISTORY: No pertinent findings noticed. ALLERGIES: No known drug allergies. MEDICATIONS: The patient is currently on Tylenol, aspirin, Lipitor, Dopamine, doxycycline, folic acid, heparin, Ativan, morphine, Narcan Zofran, Protonix, vitamin B1. EXAMINATION: Blood pressure 134/50 with a pulse of 64, temperature is 98.1. He is 98% on room air. General description is an elderly male lying in bed in no distress. No tachypnea or accessory muscle of respiration use. HEENT: Shows no pallor or scleral icterus. Oral mucosa membranes moist. Neck: No thyromegaly. NECK: Supple. Lungs unlabored breathing. Clear to auscultation anteriorly. No wheeze or crackles. Heart S1, S2. Irregularly irregular rhythm. ABDOMEN: Soft. No tenderness. No guarding or rigidity. Extremities: No edema of the feet. Examination of the right lateral thigh site of the tick bite did have a scab with surrounding erythema. No fluctuation, induration or drainage was noticed. Neurological: Patient is awake, alert, oriented x2. Mood and affect normal. LABS: Hemoglobin 13.5, white count 7.5 with a BUN of 37, creatinine 1.10. Troponin slightly elevated. DIAGNOSTIC IMPRESSION/PLAN: 1. 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 Serology will be usually negative in the early stages. 2. The patient who does have a bradyarrhythmia more likely seen due to his underlying cardiac condition and not likely secondary to underlying lung disease as the cardiac abnormality happens in the late stages and not early during the Lyme disease. PLAN: 1. The patient will be given doxycycline 100 mg twice a day for at least 2 weeks. 2. Management of underlying cardiac condition, by his cardiology and neurology services. Thank you for this consultation. MMODL / IJN: [id number] /
[2017-10-10 04:37] LABS: Basophils % (A) 0 %; Eosinophils # (A) 0.4 k/uL (0-0.7); Eosinophils % (A) 4 %; HCT 39.6 % (39.0-53.0); HGB 13.1 gm/dL (13.0-17.5); Lymphocytes # (A) 1.1 k/uL (1.0-4.8); Lymphocytes % (A) 11 %; MCH 32.6 pg (25.0-35.0); MCHC 33.1 g/dL (31.0-37.0); MCV 98.6 fL (80.0-100.0); Mean Platelet Volume 7.1; Monocytes # (A) 0.8 k/uL (0-1.0); Monocytes % (A) 8 %; Neutrophils # (A) 7.5 k/uL (1.3-7.7); Neutrophils % (A) 76 %; Platelet Count 157 k/uL (150-450); RBC 4.01 m/uL (4.30-5.90); RDW 12.9 % (11.5-15.5); WBC 9.9 k/uL (3.8-10.6)
[2017-10-10 04:41] LABS: INR 1.4 (<1.2); Partial Thromboplastin Time 45.6 sec (22.0-30.0); Prothrombin Time 13.2 sec (9.0-12.0)
[2017-10-10 04:48] LABS: Anion Gap 8 mmol/L; Blood Urea Nitrogen 25 mg/dL (9-20); Calcium 9.2 mg/dL (8.4-10.2); Carbon Dioxide 25 mmol/L (22-30); Chloride 104 mmol/L (98-107); Glucose 126 mg/dL (74-99); Phosphorus 2.8 mg/dL (2.5-4.5); Potassium 4.1 mmol/L (3.5-5.1); Sodium 137 mmol/L (137-145)
--- NOTE | 2017-10-10 08:43 | P.PN ---
Subjective Progress Note Date: 10/10/17 Principal diagnosis: Mental status changes and bradycardia Progress note dated 10/10/2017 87-year-old male seen by my partner yesterday in consultation. He came in with an acute transient ischemic attack which is completely resolved at the time of presentation. He apparently is doing relatively well now. He does have symptomatic bradycardia and was started on dopamine for them. He was hypotensive but that's resolved as well. He does have a mild elevation of his troponins and hyperkalemia as well as a history of hypertension. In addition, the patient has a history of hypothyroidism which is being treated. The patient 's awake and alert. He was admitted on October 08. His initial presentation was that of mental status changes possible TIA bradycardia and possible pneumonia. Currently, he is in slow atrial fibrillation. He is on room air not receiving any supplemental oxygen. His dopamine is 7.5 mics per kilogram per minute. He is on heparin via weightbase protocol and a 0.9 IV at 20 mL an hour. He feels well. He is a no code patient. Objective - Vital Signs Vital signs: Vital Signs Temp 98.2 F 10/10/17 04:00 Pulse 72 10/10/17 07:00 Resp 16 10/10/17 07:00 BP 137/98 10/10/17 07:00 Pulse Ox 98 10/10/17 07:00 Intake & Output 10/09/17 10/10/17 10/10/17 18:59 06:59 18:59 Intake Total 2386.435 462.333 20 Output Total 1250 775 Balance 1136.435 -312.667 20 Weight 85.6 kg Intake: IV 330 240 20 0.9 NS 160 20 Sodium Chloride 0.9% 1, 330 80 000 ml @ 100 mls/hr IV . Q10H [facility] Rx#:[id number] Intake, IV Titration 556.435 222.333 Amount DOPamine DRIP 800 mg In 515.496 Dextrose/Water 1 500ml. bag @ 7.5 MCG/KG/MIN 21. 68 mls/hr IV .Q23H4M [facility] Rx#:[id number] Heparin Sodium,Porcine/ 40.939 222.333 D5w Pmx 25,000 unit In Dextrose/Water 1 500ml. bag @ 10.6 UNITS/KG/HR 19 .97 mls/hr IV .Q24H [facility] Rx#:[id number] Oral 1500 Output: Urine 1250 775 Other: Voiding Method Urinal Urinal # Voids 1 # Bowel Movements 0 - Exam No acute distress, oriented 3. Not receiving any supplemental oxygen. HEENT examination is grossly unremarkable. Mucous membranes are moist. No oral lesions. Neck supple. Full range of motion. No adenopathy thyromegaly or neck vein distention. Cardiovascular examination reveals an irregular rhythm and rate. The patient is clearly in atrial fibrillation. S1-S2 normal. No discernible murmur noted. Lungs reveal clear breath sounds. Her sounds are equal bilaterally. No adventitious lung sounds including wheezes rhonchi or crackles. Abdomen soft bowel sounds are heard. No masses or tenderness. Extremities are intact. No cyanosis clubbing or edema. Skin is without rash or lesion. Neurologic examination is brief but nonfocal. - Labs CBC & Chem 7: 10/10/17 03:50 10/10/17 03:50 Labs: Abnormal Lab Results - Last 24 Hours (Table) 10/09/17 10/09/17 10/09/17 Range/Units 08:52 08:52 16:22 RBC 4.07 L (4.30-5.90) m/uL MCV 100.7 H (80.0-100.0) fL PT 14.0 H (9.0-12.0) sec INR 1.5 H (<1.2) APTT (22.0-30.0) sec BUN (9-20) mg/dL Glucose (74-99) mg/dL Troponin I 0.163 H* (0.000-0.034) ng/mL 10/09/17 10/09/17 10/10/17 Range/Units 16:22 21:45 03:50 RBC 4.01 L (4.30-5.90) m/uL MCV (80.0-100.0) fL PT (9.0-12.0) sec INR (<1.2) APTT 21.6 L 54.4 H (22.0-30.0) sec BUN (9-20) mg/dL Glucose (74-99) mg/dL Troponin I (0.000-0.034) ng/mL 10/10/17 10/10/17 Range/Units 03:50 03:50 RBC (4.30-5.90) m/uL MCV (80.0-100.0) fL PT 13.2 H (9.0-12.0) sec INR 1.4 H (<1.2) APTT 45.6 H (22.0-30.0) sec BUN 25 H (9-20) mg/dL Glucose 126 H (74-99) mg/dL Troponin I (0.000-0.034) ng/mL Assessment and Plan Assessment: Assessment Transient ischemic attack, much improved Symptomatic bradycardia with hypotension secondary to slow atrial fibrillation Nonspecific elevation of troponins, currently being evaluated by cardiology Hyperkalemia Hypothyroidism History of hypertension History of heart failure History of deep venous thrombosis Plan: Plan dated 10/10/2017 The patient seemed to be relatively stable. I've asked the nurses to start weaning his dopamine based on his heart rate. He is awake and alert. He is not receiving any supplemental oxygen. Still very concerned about his overall situation and status. Currently not having any pain. The patient's with the patient's awake and alert. I review the labs x-rays a medications. Additional recommendations and suggestions are forthcoming. He'll continue on the IV heparin and dopamine for now. White count is 9.9 in room 13.1 hematocrit 39.6 and platelet count is normal. PT 13.2 INR 1.4 and PTT is 45.6. The sodium potassium chloride and CO2 are all normal. BUN/creatinine were 25 and 0.8 respectively. Medications are very appropriate. Critical care time 32 minutes Time with Patient: Greater than 30
--- NOTE | 2017-10-10 09:27 | P.PN ---
Subjective Progress Note Date: 10/10/17 Principal diagnosis: aphasia Patient is an 87-year-old male with a history of congestive heart failure, dyslipidemia, and A. fib who presented to the emergency department via EMS for a aphasia. The patient had been speaking with his grandson around 10: 30 AM and became unable to pronounce words and confused. At that point in time they did some generalized testing and the patient was moving all 4 limbs adequately. They called EMS with concern for stroke. On EMS arrival per family his heart rate was in the 30s and his blood pressure was low. They administered 0.5 of atropine. By the time he arrived to our ER his heart rate was 37. He was placed on a dopamine drip. Per the ER physician once his heart rate had improved his symptoms resolved. On arrival he had an NIH stroke scale 4 was unable to talk. [facility] was contacted and he underwent a head CT which showed age-appropriate atrophy, a CTA of the head and neck which showed no significant stenosis, and an EKG which showed A. fib with slow ventricular response. Troponin came back slightly elevated at 0.068. [facility] suggested aspirin daily and holding his Coumadin until formal evaluation by neurology. Laboratory analysis showed a slightly elevated potassium at 5.5 and a low INR at 1.4. Cardiology was contacted by the ER and recommended continuing the dopamine drip. He was admitted to the ICU for further monitoring and care. Overnight on 10/08 with the dopamine gtt he had one 7 beat run of v-tach. Attempted to wean dopamine to 5 mcg on 02/08 and his HR and BP dropped and it had to be increased back to 7.5 mcg. He developed some increasing anxiety overnight on 10/09 requiring ativan X 1. 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 Neurology feels that he likely had a TIA. Patient seen and examined. C/o gagging on his breakfast this morning. Denies nausea, states it just didn't sit right. He complains of no sleep had a discussion that a sleeping pill is not a good option in his current condition but that we can try melatonin. Pt would like to try melatonin. He denies and chest pain, shortness of breath, lightheadedness, no bowel movement today. Nursing present at bedside. Objective - Vital Signs Vital signs: Vital Signs Temp 98.2 F 10/10/17 04:00 Pulse 72 10/10/17 07:00 Resp 16 10/10/17 07:00 BP 137/98 10/10/17 07:00 Pulse Ox 98 10/10/17 07:00 Intake & Output 10/09/17 10/10/17 10/10/17 18:59 06:59 18:59 Intake Total 2386.435 462.333 20 Output Total 1250 775 Balance 1136.435 -312.667 20 Weight 85.6 kg Intake: IV 330 240 20 0.9 NS 160 20 Sodium Chloride 0.9% 1, 330 80 000 ml @ 100 mls/hr IV . Q10H [facility] Rx#:[id number] Intake, IV Titration 556.435 222.333 Amount DOPamine DRIP 800 mg In 515.496 Dextrose/Water 1 500ml. bag @ 7.5 MCG/KG/MIN 21. 68 mls/hr IV .Q23H4M [facility] Rx#:[id number] Heparin Sodium,Porcine/ 40.939 222.333 D5w Pmx 25,000 unit In Dextrose/Water 1 500ml. bag @ 10.6 UNITS/KG/HR 19 .97 mls/hr IV .Q24H [facility] Rx#:[id number] Oral 1500 Output: Urine 1250 775 Other: Voiding Method Urinal Urinal # Voids 1 # Bowel Movements 0 - Exam General: non toxic, no distress, appears at stated age Derm: warm, dry Head: atraumatic, normocephalic, symmetric Eyes: EOMI, no lid lag, anicteric sclera Mouth: no lip lesion, mucus membranes moist Cardiovascular: S1S2 irreg, no murmur, positive posterior tibial pulse bilateral , Lungs:decreased bs b/l bases, no rhonchi, no rales , no accessory muscle use Abdominal: soft, nontender to palpation, no guarding, no appreciable organomegaly Ext: no gross muscle atrophy, no edema, no contractures Neuro: CN II-XI grossly intact, no focal neuro deficits, still with slow speaking a searching for words but intact pronunciation. Psych: Alert, oriented, anxious - Labs CBC & Chem 7: 10/10/17 03:50 10/10/17 03:50 Labs: Abnormal Lab Results - Last 24 Hours (Table) 10/09/17 10/09/17 10/09/17 Range/Units 08:52 08:52 16:22 RBC 4.07 L (4.30-5.90) m/uL MCV 100.7 H (80.0-100.0) fL PT 14.0 H (9.0-12.0) sec INR 1.5 H (<1.2) APTT (22.0-30.0) sec BUN (9-20) mg/dL Glucose (74-99) mg/dL Troponin I 0.163 H* (0.000-0.034) ng/mL 10/09/17 10/09/17 10/10/17 Range/Units 16:22 21:45 03:50 RBC 4.01 L (4.30-5.90) m/uL MCV (80.0-100.0) fL PT (9.0-12.0) sec INR (<1.2) APTT 21.6 L 54.4 H (22.0-30.0) sec BUN (9-20) mg/dL Glucose (74-99) mg/dL Troponin I (0.000-0.034) ng/mL 10/10/17 10/10/17 Range/Units 03:50 03:50 RBC (4.30-5.90) m/uL MCV (80.0-100.0) fL PT 13.2 H (9.0-12.0) sec INR 1.4 H (<1.2) APTT 45.6 H (22.0-30.0) sec BUN 25 H (9-20) mg/dL Glucose 126 H (74-99) mg/dL Troponin I (0.000-0.034) ng/mL Assessment and Plan Assessment: TIA - Aspirin, statin - Neurology recommendations appreciated - Echo pending - lipid profile with LDL at goal - CTA head and neck normal - PT/OT/speech therapy evaluation, NPO until seen by speech - consider MRI if symptoms recur - Discharge planning symptomatic bradycardia, with baseline A. fib -Cardiology recommendations appreciated -Continue dopamine drip as per cardiology, failed weaning on 10/09 -Hold metoprolol -Telemetry - echo pending - heparin gtt started and planing on noval anticoagulant at discharge. elevated troponin, undetermined significance - elevating slightly will cycle one additional - ASA - Cardiology recommendations early lymes disease - ID recs appreciated - doxycycline 100 mg twice a day X 14 days - Lyme's titers pending ETOH abuse - CIWA - thiamine, folic acid Hypertension, controlled -Off Lopressor -Off lisinopril -Follow blood pressures Hypothyroidism -Synthroid on hold until repeat TSH available -TSH undetectable, await repeat. Hyperkalemia, resolved Surrogate decision-maker: Philip Kendall , home [phone] , or rand Lorenzo [phone] CODE STATUS:DNR, okay with cardioversion, vasopressor, antiarrhythmics, intubation DVT prophylaxis: Lovenox Discussed with: Patient, family, ED physician, ED nursing Anticipated discharge: 3-4 days due TIA, bradycardia on dopamine Anticipated discharge place: home with home niko vs SNF A total of 75 minutes was spent on the care of this complex patient more than 50 % of the time was spent in counseling and care coordination.
--- NOTE | 2017-10-10 09:49 | ECHOF ---
Referral Reason:stroke, bradycardia MEASUREMENTS -------- HEIGHT: 175.3 cm WEIGHT: 85.3 kg BP: 142/85 RVIDd: 3.3 cm (< 3.3) IVSd: 1.6 cm (0.6 - 1.1) LVIDd: 5.0 cm (3.9 - 5.3) LVPWd: 1.6 cm (0.6 - 1.1) IVSs: 2.1 cm LVIDs: 3.9 cm LVPWs: 2.1 cm LA Diam: 4.4 cm (2.7 - 3.8) LAESV Index (A-L): 45.96 ml/m Ao Diam: 4.5 cm (2.0 - 3.7) AV Cusp: 1.8 cm (1.5 - 2.6) MV EXCURSION: 9.024 mm (> 18.000) MV EF SLOPE: 69 mm/s (70 - 150) EPSS: 0.7 cm AV maxP.39 mmHg AV meanP.49 mmHg RAP: 15.00 mmHg RVSP: 58.50 mmHg FINDINGS -------- Atrial fibrillation. This was a technically adequate study. The left ventricular size is normal. There is moderate concentric left ventricular hypertrophy. O verall left ventricular systolic function is low-normal with, an EF between 50 - 55 %. The right ventricle is mildly enlarged. LA is severely dilated >40 ml/m2 The right atrium is normal in size. The aortic valve is bicuspid. There is mild aortic valve sclerosis. There is mild aortic regurgit ation. There is mild aortic stenosis present. Peak/mean gradient across the Aortic Valve is 24.39 mmHg / 11.49mmHg. The mitral valve leaflets are mildly thickened. Mild mitral annular calcification present. Mild m itral regurgitation is present. Mild tricuspid regurgitation present. There is severe pulmonary hypertension. The right ventricul ar systolic pressure, as measured by Doppler, is 58.50mmHg. Trace/mild (physiologic) pulmonic regurgitation. 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 The inferior vena cava is dilated with poor inspiratory collapse which is consistent with estimated r ight atrial pressure of 15 mmHg. There is no pericardial effusion. CONCLUSIONS -------- 1. Atrial fibrillation. 2. This was a technically adequate study. 3. The left ventricular size is normal. 4. There is moderate concentric left ventricular hypertrophy. 5. The right ventricle is mildly enlarged. 6. LA is severely dilated >40 ml/m2 7. The right atrium is normal in size. 8. The aortic valve is bicuspid. 9. There is mild aortic valve sclerosis. 10. There is mild aortic regurgitation. 11. There is mild aortic stenosis present. 12. Peak/mean gradient across the Aortic Valve is 24.39mmHg / 11.49mmHg. 13. The mitral valve leaflets are mildly thickened. 14. Mild mitral annular calcification present. 15. Mild mitral regurgitation is present. 16. Mild tricuspid regurgitation present. 17. There is severe pulmonary hypertension. 18. The right ventricular systolic pressure, as measured by Doppler, is 58.50mmHg. 19. Trace/mild (physiologic) pulmonic regurgitation. 20. 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 21. The inferior vena cava is dilated with poor inspiratory collapse which is consistent with estimat ed right atrial pressure of 15 mmHg. 22. There is no pericardial effusion. STABLE HELPER: Rupa Baez RDCS
[2017-10-10] MEDS: PANTOPRAZOLE 40 MG/10 ML VIAL IV SCH (11:25)
[2017-10-10] MEDS: ASPIRIN 325 MG TAB PO SCH (11:25)
[2017-10-10] MEDS: DOXYCYCLINE MONOHYDRATE 100 MG CAPSULE PO SCH ×2 (11:25→20:16)
[2017-10-10] MEDS: FOLIC ACID 1 MG TAB PO SCH (13:59)
[2017-10-10] MEDS: THIAMINE 100 MG TAB PO SCH ×2 (13:59→17:20)
[2017-10-10 14:02] LABS: T4, Free (Free Thyroxine) 1.82 ng/dL (0.78-2.19)
[2017-10-10] MEDS: DOPamine DRIP 800 MG in DEXTROSE/WATER 1 500ML.BAG IV SCH (15:51)
--- NOTE | 2017-10-10 16:12 | EEG ---
ELECTROENCEPHALOGRAM REPORT DATE OF SERVICE: 10/10/2017 REASON FOR TESTING: Transient ischemic attack. DESCRIPTION OF THE PROCEDURE: This EEG was performed using a 21-channel digital electroencephalograph, following international 10-20 system. DESCRIPTION OF THE RECORDING: From the beginning of the tracing, and with the patient's eyes closed, the background rhythm was mostly consisting of 9 Hz alpha frequency in the posterior occipital leads. No obvious asymmetry is seen. Occasional movement and muscle artifacts are seen. Photic stimulation was performed with a minimal driving response seen. No pathological waves were elicited. Hyperventilation was not performed. The patient remains awake throughout the tracing. No epileptiform discharges were seen. His EKG lead showed an irregularly irregular rhythm with a normal rate. INTERPRETATION: This awake EEG can be considered within normal limits, except his EKG lead showed an irregularly irregular rhythm with a normal rate. No obvious epileptiform discharges were seen. The absence of epileptiform discharges does not rule out the diagnosis of epilepsy; therefore clinical correlation is recommended. TARUN / MINERVA: [id number] /
--- NOTE | 2017-10-10 17:28 | P.PN ---
Subjective Patient is alert and oriented. He is still on dopamine. His heart rate is in the 70s. When the dopamine was tapered off his heart rate dipped down to the 30s unit with a slight test change in dose He remains in atrial fibrillation, afebrile 98.2F pulse rate in the 60s and 70s respirations are normal blood pressure 121/66 mmHg Heart sounds are irregular no murmurs no gallops no rub Breath sounds are clear no rhonchi no crackles Impression Patient presenting with TIA like symptoms with subtherapeutic INRs Permanent atrial fibrillation with slow ventricular response home on dopamine Patient was on metoprolol 12.5 g 3 times a day at home which has been discontinued on admission on the . TSH is suppressed, hyperthyroid state Suggest I agree with switching to a NOAC If heart rate does not improve then a permanent pacemaker would be indicated Objective - Vital Signs Vital signs: Vital Signs Temp 98.2 F 10/10/17 16:00 Pulse 60 10/10/17 16:00 Resp 22 10/10/17 16:00 BP 133/98 10/10/17 16:00 Pulse Ox 100 10/10/17 16:00 Intake & Output 10/09/17 10/10/17 10/10/17 18:59 06:59 18:59 Intake Total 2386.435 462.333 605.582 Output Total 1250 775 900 Balance 1136.435 -312.667 -294.418 Weight 85.6 kg Intake: IV 330 240 200 0.9 NS 160 200 Sodium Chloride 0.9% 1, 330 80 000 ml @ 100 mls/hr IV . Q10H [facility] Rx#:[id number] Intake, IV Titration 556.435 222.333 405.582 Amount DOPamine DRIP 800 mg In 515.496 405.582 Dextrose/Water 1 500ml. bag @ 7.5 MCG/KG/MIN 21. 68 mls/hr IV .Q23H4M [facility] Rx#:[id number] Heparin Sodium,Porcine/ 40.939 222.333 D5w Pmx 25,000 unit In Dextrose/Water 1 500ml. bag @ 10.6 UNITS/KG/HR 19 .97 mls/hr IV .Q24H [facility] Rx#:[id number] Oral 1500 Output: Urine 1250 775 900 Other: Voiding Method Urinal Urinal # Voids 1 # Bowel Movements 0 - Labs CBC & Chem 7: 10/10/17 03:50 10/10/17 03:50 Labs: Abnormal Lab Results - Last 24 Hours (Table) 10/09/17 10/10/17 10/10/17 Range/Units 21:45 03:50 03:50 RBC 4.01 L (4.30-5.90) m/uL PT (9.0-12.0) sec INR (<1.2) APTT 54.4 H (22.0-30.0) sec BUN 25 H (9-20) mg/dL Glucose 126 H (74-99) mg/dL TSH (0.465-4.680) mIU/L 10/10/17 10/10/17 10/10/17 Range/Units 03:50 03:50 11:58 RBC (4.30-5.90) m/uL PT 13.2 H (9.0-12.0) sec INR 1.4 H (<1.2) APTT 45.6 H 49.8 H (22.0-30.0) sec BUN (9-20) mg/dL Glucose (74-99) mg/dL TSH <0.015 L (0.465-4.680) mIU/L
[2017-10-10] MEDS: ATORVASTATIN 40 MG TAB PO SCH (20:17)
[2017-10-10] MEDS: HEPARIN SODIUM,PORCINE/D5W PMX 25,000 UNIT in DEXTROSE/WATER 1 500ML.BAG IV SCH (20:19)
--- NOTE | 2017-10-10 20:41 | PN ---
PROGRESS NOTE DATE OF SERVICE: 10/10/2017 REASON FOR FOLLOWUP: Right thigh sigmoid cellulitis. INTERVAL HISTORY: The patient is currently afebrile and breathing comfortably. Denies having any chest pain or shortness of breath. No cough or abdominal pain. Pain to the right lateral thigh area; however no worsening of the rash has been noticed or any drainage. EXAMINATION: Blood pressure 159/96 with a pulse of 71, temperature 98.2. He is 100% on room air. General description is an elderly male lying in bed in no distress. RESPIRATORY SYSTEM: Unlabored breathing, clear to auscultation anteriorly. HEART: S1, S2. Regular rate and rhythm. ABDOMEN: Soft, no tenderness. Right leg and thigh site of the tick bite with minimal erythema, but no drainage. LABS: Hemoglobin 13.1 with white count of 9.9, BUN of 25, creatinine 0.80. DIAGNOSTIC IMPRESSION AND PLAN: Patient with right lateral thigh tick bite , currently covered with doxycycline. Will be continued for 2 weeks. Continue supportive care. MMODL / IJN: [id number] /
[2017-10-10] MEDS: MELATONIN 5 MG TABLET PO PRN (23:25)
[2017-10-11 04:17] LABS: Basophils % (A) 0 %; Eosinophils # (A) 0.4 k/uL (0-0.7); Eosinophils % (A) 5 %; HCT 39.1 % (39.0-53.0); HGB 12.7 gm/dL (13.0-17.5); Lymphocytes % (A) 14 %; MCH 32.5 pg (25.0-35.0); MCHC 32.6 g/dL (31.0-37.0); MCV 99.9 fL (80.0-100.0); Mean Platelet Volume 7.6; Monocytes # (A) 0.7 k/uL (0-1.0); Monocytes % (A) 9 %; Neutrophils # (A) 5.2 k/uL (1.3-7.7); Neutrophils % (A) 71 %; Platelet Count 149 k/uL (150-450); RBC 3.91 m/uL (4.30-5.90); RDW 13.1 % (11.5-15.5); WBC 7.4 k/uL (3.8-10.6)
[2017-10-11 04:28] LABS: INR 1.2 (<1.2); Prothrombin Time 11.8 sec (9.0-12.0)
[2017-10-11 04:34] LABS: Anion Gap 10 mmol/L; Blood Urea Nitrogen 18 mg/dL (9-20); Calcium 9.2 mg/dL (8.4-10.2); Carbon Dioxide 25 mmol/L (22-30); Chloride 103 mmol/L (98-107); Glucose 115 mg/dL (74-99); Phosphorus 2.7 mg/dL (2.5-4.5); Sodium 138 mmol/L (137-145)
[2017-10-11] MEDS: ASPIRIN 325 MG TAB PO SCH (08:15)
[2017-10-11] MEDS: DOXYCYCLINE MONOHYDRATE 100 MG CAPSULE PO SCH ×2 (08:15→20:23)
[2017-10-11] MEDS: DOCUSATE 100 MG CAP PO PRN ×2 (08:15→21:27)
[2017-10-11] MEDS: PANTOPRAZOLE 40 MG/10 ML VIAL IV SCH (08:15)
--- NOTE | 2017-10-11 09:20 | P.PN ---
Subjective Progress Note Date: 10/11/17 Principal diagnosis: Symptomatic bradycardia with hypotension, transient ischemic attack, improved, positive troponins Mental status changes and bradycardia Progress note dated 10/10/2017 87-year-old male seen by my partner yesterday in consultation. He came in with an acute transient ischemic attack which is completely resolved at the time of presentation. He apparently is doing relatively well now. He does have symptomatic bradycardia and was started on dopamine for them. He was hypotensive but that's resolved as well. He does have a mild elevation of his troponins and hyperkalemia as well as a history of hypertension. In addition, the patient has a history of hypothyroidism which is being treated. The patient 's awake and alert. He was admitted on October 08. His initial presentation was that of mental status changes possible TIA bradycardia and possible pneumonia. Currently, he is in slow atrial fibrillation. He is on room air not receiving any supplemental oxygen. His dopamine is 7.5 mics per kilogram per minute. He is on heparin via weightbase protocol and a 0.9 IV at 20 mL an hour. He feels well. He is a no code patient. On 10/11/2017 patient seen in follow-up in the intensive care unit. He is resting comfortably in bed, denies any acute distress, denies any chest pain or shortness of breath. His maintenance IV include 0.9 at a rate of 20 ML per hour , heparin drip is at 12.5 units per kilo per hour, and dopamine drip is currently at 7 mics per kilo per minute. He remains in A. fib, with a rate of 54 BPM, room air pulse ox is 97%, he is afebrile. Lung sounds are clear to auscultation., No rhonchi, no wheezes noted. Cardiology is following, and considering the patient for implantation of permanent pacemaker. His labs were reviewed. No chest x-ray today. No acute complaints, no acute events overnight. He is voiding, and tolerating oral diet. Objective - Vital Signs Vital signs: Vital Signs Temp 98.2 F 10/11/17 04:00 Pulse 54 L 10/11/17 07:00 Resp 18 10/11/17 07:00 BP 113/73 10/11/17 07:00 Pulse Ox 100 10/11/17 07:00 Intake & Output 10/10/17 10/11/1710/11/18 18:59 06:59 18:59 Intake Total 882.310 487.406 20 Output Total 1040 635 0 Balance -157.690 -147.594 20 Weight 84.2 kg Intake: IV 240 240 20 0.9 NS 240 240 20 Intake, IV Titration 642.310 247.406 Amount DOPamine DRIP 800 mg In 405.582 247.406 Dextrose/Water 1 500ml. bag @ 7.5 MCG/KG/MIN 21. 68 mls/hr IV .Q23H4M [facility] Rx#:[id number] Heparin Sodium,Porcine/ 236.728 D5w Pmx 25,000 unit In Dextrose/Water 1 500ml. bag @ 10.6 UNITS/KG/HR 19 .97 mls/hr IV .Q24H [facility] Rx#:[id number] Output: Urine 1040 635 0 Other: Voiding Method Urinal - Exam No acute distress, oriented 3. Not receiving any supplemental oxygen. HEENT examination is grossly unremarkable. Mucous membranes are moist. No oral lesions. Neck supple. Full range of motion. No adenopathy thyromegaly or neck vein distention. Cardiovascular examination reveals an irregular rhythm and rate. The patient is clearly in atrial fibrillation. S1-S2 normal. No discernible murmur noted. Lungs reveal clear breath sounds. Her sounds are equal bilaterally. No adventitious lung sounds including wheezes rhonchi or crackles. Abdomen soft bowel sounds are heard. No masses or tenderness. Extremities are intact. No cyanosis clubbing or edema. Skin is without rash or lesion. Neurologic examination is brief but nonfocal. - Labs CBC & Chem 7: 10/11/17 03:41 10/11/17 03:41 Labs: Abnormal Lab Results - Last 24 Hours (Table) 10/10/17 10/10/17 10/11/17 Range/Units 03:50 11:58 03:41 RBC 3.91 L (4.30-5.90) m/uL Hgb 12.7 L (13.0-17.5) gm/dL Plt Count 149 L (150-450) k/uL INR (<1.2) APTT 49.8 H (22.0-30.0) sec Glucose (74-99) mg/dL TSH <0.015 L (0.465-4.680) mIU/L 10/11/17 10/11/17 Range/Units 03:41 03:41 RBC (4.30-5.90) m/uL Hgb (13.0-17.5) gm/dL Plt Count (150-450) k/uL INR 1.2 H (<1.2) APTT 59.0 H (22.0-30.0) sec Glucose 115 H (74-99) mg/dL TSH (0.465-4.680) mIU/L Assessment and Plan Plan: Assessment: Transient ischemic attack, much improved Symptomatic bradycardia with hypotension possibly medication induced Nonspecific elevation of troponins, currently being evaluated by cardiology Hyperkalemia Hypothyroidism History of hypertension History of heart failure History of deep venous thrombosis Plan: Continue dopamine, continue heparin, patient remains in A. fib with bradycardia , with a rate of 54 BPM. Clinically remains stable, denies any distress, denies any shortness of breath or chest pain, his mentation is appropriate. Patient is voiding, tolerating oral diet, no acute events. He is being considered for permanent pacemaker implantation by cardiology. We'll continue to follow I performed a history & physical examination of the patient and discussed their management with my nurse practitioner, Peyton Ordoñez. I reviewed the nurse practitioner's note and agree with the documented findings and plan of care. Lung sounds are clear. The findings and the impression was discussed with the patient. I attest to the documentation by the nurse practitioner. Time with Patient: Greater than 30
--- NOTE | 2017-10-11 09:28 | P.PN ---
Subjective Progress Note Date: 10/11/17 Principal diagnosis: aphasia Patient is an 87-year-old male with a history of congestive heart failure, dyslipidemia, and A. fib who presented to the emergency department via EMS for a aphasia. The patient had been speaking with his grandson around 10: 30 AM and became unable to pronounce words and confused. At that point in time they did some generalized testing and the patient was moving all 4 limbs adequately. They called EMS with concern for stroke. On EMS arrival per family his heart rate was in the 30s and his blood pressure was low. They administered 0.5 of atropine. By the time he arrived to our ER his heart rate was 37. He was placed on a dopamine drip. Per the ER physician once his heart rate had improved his symptoms resolved. On arrival he had an NIH stroke scale 4 was unable to talk. [facility] was contacted and he underwent a head CT which showed age-appropriate atrophy, a CTA of the head and neck which showed no significant stenosis, and an EKG which showed A. fib with slow ventricular response. Troponin came back slightly elevated at 0.068. [facility] suggested aspirin daily and holding his Coumadin until formal evaluation by neurology. Laboratory analysis showed a slightly elevated potassium at 5.5 and a low INR at 1.4. Cardiology was contacted by the ER and recommended continuing the dopamine drip. He was admitted to the ICU for further monitoring and care. Overnight on 10/08 with the dopamine gtt he had one 7 beat run of v-tach. Attempted to wean dopamine to 5 mcg on 02/08 and his HR and BP dropped and it had to be increased back to 7.5 mcg. He developed some increasing anxiety overnight on 10/09 requiring ativan X 1. 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 Neurology feels that he likely had a TIA. Again tried to wean dopamine on 10/10 and were unsuccessful. Has been up and walking in the halls with nursing and doing well. Seen by speech therapy and passed swallow. Patient seen and examined. He still thinks that his food is not going down the same. No chest pain, lightheadednes, shortness of breathing, nausea, or choking. Doing well otherwise. Nursing present at bedside. Objective - Vital Signs Vital signs: Vital Signs Temp 98.2 F 10/11/17 04:00 Pulse 54 L 10/11/17 07:00 Resp 18 10/11/17 07:00 BP 113/73 10/11/17 07:00 Pulse Ox 100 10/11/17 07:00 Intake & Output 10/10/17 10/11/17 10/11/17 18:59 06:59 18:59 Intake Total 882.310 487.406 20 Output Total 1040 635 0 Balance -157.690 -147.594 20 Weight 84.2 kg Intake: IV 240 240 20 0.9 NS 240 240 20 Intake, IV Titration 642.310 247.406 Amount DOPamine DRIP 800 mg In 405.582 247.406 Dextrose/Water 1 500ml. bag @ 7.5 MCG/KG/MIN 21. 68 mls/hr IV .Q23H4M [facility] Rx#:[id number] Heparin Sodium,Porcine/ 236.728 D5w Pmx 25,000 unit In Dextrose/Water 1 500ml. bag @ 10.6 UNITS/KG/HR 19 .97 mls/hr IV .Q24H [facility] Rx#:[id number] Output: Urine 1040 635 0 Other: Voiding Method Urinal - Exam General: non toxic, no distress, appears at stated age Derm: warm, dry Head: atraumatic, normocephalic, symmetric Eyes: EOMI, no lid lag, anicteric sclera Mouth: no lip lesion, mucus membranes moist Cardiovascular: S1S2 irreg, no murmur, positive posterior tibial pulse bilateral , Lungs:decreased bs b/l bases, no rhonchi, no rales , no accessory muscle use Abdominal: soft, nontender to palpation, no guarding, no appreciable organomegaly Ext: no gross muscle atrophy, no edema, no contractures Neuro: CN II-XI grossly intact, no focal neuro deficits, still with slow speaking a searching for words but intact pronunciation. Psych: Alert, oriented, appropriate affect - Labs CBC & Chem 7: 10/11/17 03:41 10/11/17 03:41 Labs: Abnormal Lab Results - Last 24 Hours (Table) 10/10/17 10/10/17 10/11/17 Range/Units 03:50 11:58 03:41 RBC 3.91 L (4.30-5.90) m/uL Hgb 12.7 L (13.0-17.5) gm/dL Plt Count 149 L (150-450) k/uL INR (<1.2) APTT 49.8 H (22.0-30.0) sec Glucose (74-99) mg/dL TSH <0.015 L (0.465-4.680) mIU/L 10/11/17 10/11/17 Range/Units 03:41 03:41 RBC (4.30-5.90) m/uL Hgb (13.0-17.5) gm/dL Plt Count (150-450) k/uL INR 1.2 H (<1.2) APTT 59.0 H (22.0-30.0) sec Glucose 115 H (74-99) mg/dL TSH (0.465-4.680) mIU/L Assessment and Plan Assessment: symptomatic bradycardia, with baseline A. fib -Cardiology recommendations appreciated -Continue dopamine drip as per cardiology, failed weaning on 10/09 and 10/10 -Hold metoprolol -Telemetry - echo with preserved EF - heparin gtt started and planing on noval anticoagulant at discharge. 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 Hyperkalemia, resolved DVT prophylaxis: heparin gtt Discussed with: Patient, nursing Anticipated discharge: 2-3 days due TIA, bradycardia on dopamine Anticipated discharge place: home with home niko vs SNF A total of 35 minutes was spent on the care of this complex patient more than 50 % of the time was spent in counseling and care coordination.
[2017-10-11 09:47] LABS: Lyme IgG/IgM 0.1 Index
--- NOTE | 2017-10-11 12:13 | PN ---
PROGRESS NOTE Mr. Stefan Ruiz is an 87-year-old gentleman who was admitted with a TIA. He was found to be quite bradycardic subsequently and he is not on any AV sanjiv blocking drugs. He remains on dopamine. Every time the dopamine dose is reduced, he becomes quite bradycardic. He has underlying atrial fibrillation. On examination, his blood pressure is 134/76 mmHg, respirations are normal at 15 to 16 per minute, pulse rate is in the 70s on 7 mcg of dopamine. Heart sounds S1-S2 irregular, but normal. Breath sounds are clear. No rhonchi, no crackles. Abdomen is soft, nontender. Extremities are warm no edema. IMPRESSION: Atrial fibrillation with a slow ventricular response. Inability to get off dopamine drip. The patient has recurrent bouts of bradycardia even the slightest down regulation of dopamine drip. The patient is not hypothyroid. Potassium is normal. He is not on any AV sanjiv drugs. SUGGEST: Single-chamber pacemaker implantation. This was discussed with his [id number]-it-xio and yesterday I discussed this with his grandson. He will obtain consult and proceed with this in the next 24 to 48 hours. MMODL / IJN: [id number] /
[2017-10-11] MEDS: FOLIC ACID 1 MG TAB PO SCH (13:22)
[2017-10-11] MEDS: THIAMINE 100 MG TAB PO SCH ×2 (13:22→16:42)
[2017-10-11 16:17] LABS: Magnesium 2.1 mg/dL (1.6-2.3); Potassium 4.4 mmol/L (3.5-5.1)
[2017-10-11] MEDS: DOPamine DRIP 800 MG in DEXTROSE/WATER 1 500ML.BAG IV SCH (16:27)
[2017-10-11] MEDS: HEPARIN SODIUM,PORCINE/D5W PMX 25,000 UNIT in DEXTROSE/WATER 1 500ML.BAG IV SCH (16:28)
[2017-10-11] MEDS: ATORVASTATIN 40 MG TAB PO SCH (20:23)
--- NOTE | 2017-10-11 23:19 | PN ---
PROGRESS NOTE DATE OF SERVICE: 10/11/2017 REASON FOR FOLLOWUP: Right thigh tick bite rash. INTERVAL HISTORY: The patient is afebrile. He is breathing comfortably. Denies having any chest pain, shortness of breath or cough. No abdominal pain. No diarrhea. Denies any pain to the right lateral thigh area site of the tick bite rash. EXAMINATION: Blood pressure 140/53 with a pulse of 59, temperature 98.8. He is 100% room air. General description is an elderly male lying in bed in no distress. RESPIRATORY SYSTEM: Unlabored breathing, clear to auscultation anteriorly. HEART: S1, S2. Regular rate and rhythm. ABDOMEN: Soft. No tenderness. Right lateral thigh rash decreased intensity. LABS: Hemoglobin is 12.7, white count 7.4 with a BUN of 18, creatinine 0.90. DIAGNOSTIC IMPRESSION AND PLAN: Patient with right lateral thigh tick bite with a rash. Currently covered with doxycycline and will be continued for now. Continue supportive care. MMODL / IJN: [id number] /
[2017-10-12] MEDS: SODIUM CHLORIDE 0.9% 1,000 ML IV SCH ×3 (05:46→08:20)
[2017-10-12] MEDS ORDERED: ceFAZolin IN SWFI 2 GM/20 ML SYRINGE IVP ONE ×2 (06:00→09:32)
[2017-10-12] MEDS ORDERED: ceFAZolin 1,000 MG in SODIUM CHLORIDE 0.9% IRRIGATIO 250 ML IRRIGATION ONE (06:00)
[2017-10-12 06:05] LABS: INR 1.3 (<1.2); Prothrombin Time 12.1 sec (9.0-12.0)
[2017-10-12 06:06] LABS: Anion Gap 9 mmol/L; Blood Urea Nitrogen 15 mg/dL (9-20); Calcium 9.3 mg/dL (8.4-10.2); Carbon Dioxide 22 mmol/L (22-30); Chloride 104 mmol/L (98-107); Glucose 112 mg/dL (74-99); Phosphorus 2.7 mg/dL (2.5-4.5); Potassium 4.1 mmol/L (3.5-5.1); Sodium 135 mmol/L (137-145)
[2017-10-12 06:08] LABS: Basophils % (A) 1 %; Eosinophils # (A) 0.5 k/uL (0-0.7); Eosinophils % (A) 7 %; HCT 39.9 % (39.0-53.0); HGB 13.4 gm/dL (13.0-17.5); Lymphocytes # (A) 1.2 k/uL (1.0-4.8); Lymphocytes % (A) 17 %; MCH 32.8 pg (25.0-35.0); MCHC 33.6 g/dL (31.0-37.0); MCV 97.6 fL (80.0-100.0); Mean Platelet Volume 7.8; Monocytes # (A) 0.8 k/uL (0-1.0); Monocytes % (A) 11 %; Neutrophils # (A) 4.8 k/uL (1.3-7.7); Neutrophils % (A) 64 %; Platelet Count 144 k/uL (150-450); RBC 4.09 m/uL (4.30-5.90); RDW 13.1 % (11.5-15.5); WBC 7.5 k/uL (3.8-10.6)
[2017-10-12] MEDS: THIAMINE 100 MG TAB PO SCH (08:11)
[2017-10-12] MEDS: ASPIRIN 81 MG PO SCH (08:11)
[2017-10-12] MEDS: PANTOPRAZOLE 40 MG TABLET PO SCH (08:11)
[2017-10-12] MEDS: DOXYCYCLINE MONOHYDRATE 100 MG CAPSULE PO SCH ×2 (08:11→20:02)
[2017-10-12] MEDS: FOLIC ACID 1 MG TAB PO SCH (08:11)
[2017-10-12] MEDS ORDERED: IOPAMIDOL-370 50ML BTL INJ ONE (09:08)
--- NOTE | 2017-10-12 09:08 | P.PN ---
Subjective Progress Note Date: 10/12/17 Principal diagnosis: Symptomatic bradycardia with hypotension, transient ischemic attack, improved, positive troponins Mental status changes and bradycardia Progress note dated 10/10/2017 87-year-old male seen by my partner yesterday in consultation. He came in with an acute transient ischemic attack which is completely resolved at the time of presentation. He apparently is doing relatively well now. He does have symptomatic bradycardia and was started on dopamine for them. He was hypotensive but that's resolved as well. He does have a mild elevation of his troponins and hyperkalemia as well as a history of hypertension. In addition, the patient has a history of hypothyroidism which is being treated. The patient 's awake and alert. He was admitted on October 08. His initial presentation was that of mental status changes possible TIA bradycardia and possible pneumonia. Currently, he is in slow atrial fibrillation. He is on room air not receiving any supplemental oxygen. His dopamine is 7.5 mics per kilogram per minute. He is on heparin via weightbase protocol and a 0.9 IV at 20 mL an hour. He feels well. He is a no code patient. On 10/11/2017 patient seen in follow-up in the intensive care unit. He is resting comfortably in bed, denies any acute distress, denies any chest pain or shortness of breath. His maintenance IV include 0.9 at a rate of 20 ML per hour , heparin drip is at 12.5 units per kilo per hour, and dopamine drip is currently at 7 mics per kilo per minute. He remains in A. fib, with a rate of 54 BPM, room air pulse ox is 97%, he is afebrile. Lung sounds are clear to auscultation., No rhonchi, no wheezes noted. Cardiology is following, and considering the patient for implantation of permanent pacemaker. His labs were reviewed. No chest x-ray today. No acute complaints, no acute events overnight. He is voiding, and tolerating oral diet. On 10/12/2017 patient seen in follow-up in intensive care unit. He is calm and comfortable, denies any acute distress, denies any chest pain or dyspnea. Room air pulse ox is 99%, patient is afebrile, remains on dopamine drip 7 mics per kilo per minute, maintenance IVs 0.9 at the rate of 50 ML per hour. She remains in A. fib, and currently his rate is ranging from 61-71 BPM. Lung sounds are clear to auscultation, no rhonchi no wheezes on today's exam. He is scheduled for implantation of permanent pacemaker today by Dr. Adams. No acute issues overnight. I'll continue to follow. Objective - Vital Signs Vital signs: Vital Signs Temp 98.1 F 10/12/17 04:00 Pulse 71 10/12/17 06:00 Resp 20 10/12/17 06:00 BP 138/84 10/12/17 06:00 Pulse Ox 99 10/12/17 06:00 Intake & Output 10/11/17 10/12/17 10/12/17 18:59 06:59 18:59 Intake Total 1589.50 2221.579 50 Output Total 600 1725 100 Balance 989.50 496.579 -50 Weight 84.6 kg Intake: IV 240 270 50 0.9 NS 240 270 50 Intake, IV Titration 675.50 611.579 0 Amount DOPamine DRIP 800 mg In 197.34 269.867 Dextrose/Water 1 500ml. bag @ 7.5 MCG/KG/MIN 21. 68 mls/hr IV .Q23H4M [facility] Rx#:[id number] Heparin Sodium,Porcine/ 478.16 341.712 0 D5w Pmx 25,000 unit In Dextrose/Water 1 500ml. bag @ 10.6 UNITS/KG/HR 19 .97 mls/hr IV .Q24H [facility] Rx#:[id number] Oral 674 1340 Output: Urine 600 1725 100 Other: Voiding Method Urinal # Voids 2 # Bowel Movements 0 - Exam No acute distress, oriented 3. Not receiving any supplemental oxygen. HEENT examination is grossly unremarkable. Mucous membranes are moist. No oral lesions. Neck supple. Full range of motion. No adenopathy thyromegaly or neck vein distention. Cardiovascular examination reveals an irregular rhythm and rate. The patient is clearly in atrial fibrillation. S1-S2 normal. No discernible murmur noted. Lungs reveal clear breath sounds. Her sounds are equal bilaterally. No adventitious lung sounds including wheezes rhonchi or crackles. Abdomen soft bowel sounds are heard. No masses or tenderness. Extremities are intact. No cyanosis clubbing or edema. Skin is without rash or lesion. Neurologic examination is brief but nonfocal. - Labs CBC & Chem 7: 10/12/17 05:21 18 05:21 Labs: Abnormal Lab Results - Last 24 Hours (Table) 10/12/17 10/12/17 10/12/17 Range/Units 05:20 05:21 05:21 RBC 4.09 L (4.30-5.90) m/uL Plt Count 144 L (150-450) k/uL PT (9.0-12.0) sec INR (<1.2) APTT 40.7 H (22.0-30.0) sec Sodium 135 L (137-145) mmol/L Glucose 112 H (74-99) mg/dL 10/12/17 Range/Units 05:21 RBC (4.30-5.90) m/uL Plt Count (150-450) k/uL PT 12.1 H (9.0-12.0) sec INR 1.3 H (<1.2) APTT (22.0-30.0) sec Sodium (137-145) mmol/L Glucose (74-99) mg/dL Assessment and Plan Plan: Assessment: Transient ischemic attack, much improved Symptomatic bradycardia with hypotension possibly medication induced, the patient is scheduled for permanent pacemaker implantation today Nonspecific elevation of troponins, currently being evaluated by cardiology Hyperkalemia, resolved Hypothyroidism History of hypertension History of heart failure History of deep venous thrombosis Plan: Patient is awaiting permanent pacemaker implantation today by Dr. Adams, otherwise remains stable, no dizziness, no lightheadedness, no chest pain shortness of breath. Anticipate patient transferring to selective care floor after his procedure as long as he remains stable. I performed a history & physical examination of the patient and discussed their management with my nurse practitioner, Peyton Ordoñez. I reviewed the nurse practitioner's note and agree with the documented findings and plan of care. Lung sounds are clear. The findings and the impression was discussed with the patient. I attest to the documentation by the nurse practitioner. Time with Patient: Greater than 30
[2017-10-12] MEDS ORDERED: SODIUM CHLORIDE 0.9% 1,000 ML IV ONE (09:12)
[2017-10-12] MEDS ORDERED: LIDOCAINE 1% INJ 10MG/ML (20 ML MDV) ONE (09:16)
[2017-10-12] MEDS ORDERED: MIDAZOLAM 2 MG/2 ML VIAL ONE (09:31)
[2017-10-12] MEDS: MIDAZOLAM 2 MG/2 ML VIAL IVP ONE ×2 (09:32→10:29)
[2017-10-12] MEDS ORDERED: fentaNYL (PF) 50 MCG/ML 2 ML AMP IVP ONE (09:37)
[2017-10-12] MEDS ORDERED: fentaNYL (PF) 50 MCG/ML 2 ML AMP ONE (09:38)
[2017-10-12] MEDS ORDERED: LIDOCAINE 1% INJ 10MG/ML (20 ML MDV) SQ ONE (09:39)
--- NOTE | 2017-10-12 10:55 | P.PCN ---
Preoperative Diagnosis: Patient underwent EP procedure under conscious sedation/moderate sedation, monitoring of the level of consciousness and physiologic parameters including but not limited to vital signs and oxygenation. Patient tolerated the procedure well without any acute complications. Start time: 931 Stop time: 1050 79 minutes This is a long procedure
[2017-10-12] MEDS ORDERED: HYDROcodone/APAP 5-325MG 1 EACH TAB PO PRN (10:56)
[2017-10-12] MEDS ORDERED: ACETAMINOPHEN TAB 325 MG TAB PO PRN (10:56)
[2017-10-12] MEDS ORDERED: ACETAMINOPHEN IV (For NPO) 1,000 MG in EMPTY BAG 1 BAG IVPB ONE (10:56)
[2017-10-12] MEDS: DOPamine DRIP 800 MG in DEXTROSE/WATER 1 500ML.BAG IV SCH (12:13)
--- NOTE | 2017-10-12 12:26 | CE ---
CARDIAC ELECTROPHYSIOLOGY REPORT History of atrial fibrillation with bradycardia, unresponsive to stopping beta blockers and dependent on dopamine for adequate heart rates for several days. He has permanent atrial fibrillation. A pacemaker was recommended. The patient was brought to the EP lab in a fasting state. Written informed consent was obtained prior to the procedure. The left shoulder area was prepped and draped as per protocol and 1% lidocaine was used for local anesthesia. A 4 cm incision was made parallel to the deltopectoral groove, about 1.5 cm medial to it the the incision was carried down to the level of the pectoralis muscle. A subfascial pocket was made. Hemostasis was assured. The left axillary vein was accessed and an RV lead was placed. This was a difficult procedure. Multiple leads were used. Multiple stylets were used. It took a long time to position the lead in the RV apex. Finally a tined lead was placed. This was a Med[employer]onic model #4074, 58 cm in length and serial #[id number] which is positioned in the RV apex. Pacing threshold 0.5 V at 0.4 milliseconds, current of 0.3 milliamperes, pacing impedance of 1476 ohms. R-waves 8.4 mV. The lead was stable with deep inspiration and coughing and was interrogated multiple times before removing the sheath, securing the lead and connecting to a single-chamber pacemaker. Med[employer]onic model number [id number], serial #[id number]. The lead and generator were then placed in subfascial pocket. The wound was closed in 3 layers and dressed per protocol. RESULTS: 1. Successful single-chamber pacemaker implantation. 2. Difficulty with lead position on account of stability of the lead on account of tricuspid regurgitation and the cardiac size. The RV septum was not stable. The lead would be ejected out of the right ventricle and finally with a tined lead a very stable right ventricular apical position was obtained, but after multiple attempts and with multiple stylets and changing different leads. The patient tolerated the procedure well without any acute complications. PLAN: Program device to VVI at 50 to 120 ppm. MMODL / IJN: [id number] /
[2017-10-12] MEDS: ceFAZolin IN SWFI 2 GM/20 ML SYRINGE IVP SCH ×2 (14:38→20:03)
--- NOTE | 2017-10-12 14:57 | P.PN ---
Subjective Progress Note Date: 10/12/17 Principal diagnosis: Patient feels okay no chest pain no shortness of breath Constitutional: No acute distress, conversant, pleasant Eyes: Anicteric sclerae, moist conjunctiva, no lid-lag PERRLA ENMT: Cranial nerves grossly intact Neck: Supple, FROM, no masses, or JVD No carotid bruits No thyromegaly Lungs: Clear to auscultation Clear to percussion Normal respiratory effort, no accessory muscle use Cardiovascular: Heart regular in rate and rhythm, Abdominal: Soft Nontender, no guarding, rebound or rigidity Abdomen moving with respiration Skin: Normal temperature, tone, texture, turgor No induration No subcutaneous nodules No rash, lesions No ulcers Extremities: No digital cyanosis No clubbing Pedal pulses intact and symmetrical Radial pulses intact and symmetrical Normal gait and station No calf tenderness Psychiatric:Alert and oriented to person, place and time Appropriate affect Intact judgement Neuro: Generalized weakness Diabetes panel 10/11/17 10/12/17 Range/Units 15:27 05:21 Sodium 135 L (137-145) mmol/L Potassium 4.4 4.1 (3.5-5.1) mmol/L Chloride 104 (98-107) mmol/L Carbon Dioxide 22 (22-30) mmol/L BUN 15 (9-20) mg/dL Creatinine 0.70 (0.66-1.25) mg/dL Glucose 112 H (74-99) mg/dL Calcium 9.3 (8.4-10.2) mg/dL Calcium panel 10/12/17 Range/Units 05:21 Calcium 9.3 (8.4-10.2) mg/dL Phosphorus 2.7 (2.5-4.5) mg/dL Pituitary panel 10/11/17 10/12/17 Range/Units 15:27 05:21 Sodium 135 L (137-145) mmol/L Potassium 4.4 4.1 (3.5-5.1) mmol/L Chloride 104 (98-107) mmol/L Carbon Dioxide 22 (22-30) mmol/L BUN 15 (9-20) mg/dL Creatinine 0.70 (0.66-1.25) mg/dL Glucose 112 H (74-99) mg/dL Calcium 9.3 (8.4-10.2) mg/dL Adrenal panel 10/11/17 10/12/17 Range/Units 15:27 05:21 Sodium 135 L (137-145) mmol/L Potassium 4.4 4.1 (3.5-5.1) mmol/L Chloride 104 (98-107) mmol/L Carbon Dioxide 22 (22-30) mmol/L BUN 15 (9-20) mg/dL Creatinine 0.70 (0.66-1.25) mg/dL Glucose 112 H (74-99) mg/dL Calcium 9.3 (8.4-10.2) mg/dL Vital Signs 10/08/17 10/08/17 10/08/17 12:40 12:55 13:00 Temperature 97.6 F Pulse Rate 37 L 47 L 62 Pulse Rate [ Office Services Clerk ] Respiratory 18 18 18 Rate Blood Pressure 137/85 139/84 156/89 Blood Pressure [Left Arm Supine] O2 Sat by Pulse 91 L 96 100 Oximetry 10/08/17 10/08/17 10/08/17 13:15 13:30 13:45 Temperature Pulse Rate 58 L 49 L 54 L Pulse Rate [ Office Services Clerk ] Respiratory 16 18 18 Rate Blood Pressure 169/91 156/87 158/79 Blood Pressure [Left Arm Supine] O2 Sat by Pulse 100 96 95 Oximetry 10/08/17 10/08/17 10/08/17 14:43 15:36 16:33 Temperature 98.5 F Pulse Rate 97 98 Pulse Rate [ 56 L Office Services Clerk ] Respiratory 18 18 18 Rate Blood Pressure 168/96 167/87 Blood Pressure 140/79 [Left Arm Supine] O2 Sat by Pulse 97 95 99 Oximetry 10/08/17 10/08/17 10/08/17 16:38 17:13 17:20 Temperature 98.5 F Pulse Rate 66 74 67 Pulse Rate [ Office Services Clerk ] Respiratory 18 22 Rate Blood Pressure 152/75 142/73 Blood Pressure [Left Arm Supine] O2 Sat by Pulse 95 Oximetry 10/08/17 10/08/17 10/08/17 17:30 17:40 17:50 Temperature Pulse Rate 55 L 59 L 67 Pulse Rate [ Office Services Clerk ] Respiratory 18 22 18 Rate Blood Pressure 142/73 142/73 142/73 Blood Pressure [Left Arm Supine] O2 Sat by Pulse 98 94 L 96 Oximetry 10/08/17 10/08/17 10/08/17 18:00 18:10 18:20 Temperature Pulse Rate 63 57 L 67 Pulse Rate [ Office Services Clerk ] Respiratory 18 23 21 Rate Blood Pressure 142/73 142/73 138/70 Blood Pressure [Left Arm Supine] O2 Sat by Pulse 94 L 96 95 Oximetry 10/08/17 10/08/17 10/08/17 18:30 18:40 18:50 Temperature Pulse Rate 64 61 63 Pulse Rate [ Office Services Clerk ] Respiratory 13 19 18 Rate Blood Pressure 138/70 138/70 138/70 Blood Pressure [Left Arm Supine] O2 Sat by Pulse 94 L 100 100 Oximetry 10/08/17 10/08/17 10/08/17 19:00 19:10 19:54 Temperature Pulse Rate 59 L 64 Pulse Rate [ Office Services Clerk ] Respiratory 18 9 L Rate Blood Pressure 138/70 138/70 Blood Pressure [Left Arm Supine] O2 Sat by Pulse 99 99 93 L Oximetry 10/08/17 10/08/17 10/08/17 20:00 21:00 21:16 Temperature 98.5 F Pulse Rate 68 56 L 55 L Pulse Rate [ Office Services Clerk ] Respiratory 18 18 15 Rate Blood Pressure 137/74 128/70 128/70 Blood Pressure [Left Arm Supine] O2 Sat by Pulse 96 100 99 Oximetry 10/08/17 10/08/17 10/08/17 21:30 22:00 23:00 Temperature Pulse Rate 51 L 69 70 Pulse Rate [ Office Services Clerk ] Respiratory 13 16 23 Rate Blood Pressure 140/77 140/77 112/56 Blood Pressure [Left Arm Supine] O2 Sat by Pulse 100 97 100 Oximetry 10/09/17 10/09/17 10/09/17 00:00 01:00 02:00 Temperature 98.6 F Pulse Rate 71 66 73 Pulse Rate [ Office Services Clerk ] Respiratory 28 H 18 20 Rate Blood Pressure 112/54 111/66 114/61 Blood Pressure [Left Arm Supine] O2 Sat by Pulse 98 97 95 Oximetry 10/09/17 10/09/17 10/09/17 02:30 03:30 04:00 Temperature 98.2 F Pulse Rate 67 63 60 Pulse Rate [ Office Services Clerk ] Respiratory 24 20 16 Rate Blood Pressure 121/69 107/60 107/60 Blood Pressure [Left Arm Supine] O2 Sat by Pulse 92 L 99 100 Oximetry 10/09/17 10/09/17 10/09/17 04:30 05:00 05:30 Temperature Pulse Rate 57 L 57 L 70 Pulse Rate [ Office Services Clerk ] Respiratory 18 19 20 Rate Blood Pressure 125/66 125/66 116/70 Blood Pressure [Left Arm Supine] O2 Sat by Pulse 100 100 100 Oximetry 10/09/17 10/09/17 10/09/17 06:00 06:30 07:00 Temperature Pulse Rate 66 66 55 L Pulse Rate [ Office Services Clerk ] Respiratory 25 H 23 22 Rate Blood Pressure 116/70 113/68 113/68 Blood Pressure [Left Arm Supine] O2 Sat by Pulse 100 99 100 Oximetry 10/09/17 10/09/17 10/09/17 07:30 08:00 08:30 Temperature 98.1 F Pulse Rate 56 L 62 63 Pulse Rate [ Office Services Clerk ] Respiratory 16 11 L 16 Rate Blood Pressure 122/64 122/64 101/58 Blood Pressure [Left Arm Supine] O2 Sat by Pulse 100 100 100 Oximetry 10/09/17 10/09/17 10/09/17 09:00 09:24 09:30 Temperature Pulse Rate 57 L 53 L Pulse Rate [ Office Services Clerk ] Respiratory 25 H 21 Rate Blood Pressure 101/58 107/58 Blood Pressure [Left Arm Supine] O2 Sat by Pulse 100 100 100 Oximetry 10/09/17 10/09/17 10/09/17 10:00 10:30 11:00 Temperature Pulse Rate 62 53 L 63 Pulse Rate [ Office Services Clerk ] Respiratory 18 27 H 14 Rate Blood Pressure 107/58 111/64 111/64 Blood Pressure [Left Arm Supine] O2 Sat by Pulse 100 100 100 Oximetry 10/09/17 10/09/17 10/09/17 11:30 12:00 12:30 Temperature 98.0 F Pulse Rate 67 77 60 Pulse Rate [ Office Services Clerk ] Respiratory 20 20 21 Rate Blood Pressure 129/75 129/75 137/79 Blood Pressure [Left Arm Supine] O2 Sat by Pulse 97 98 100 Oximetry 10/09/17 10/09/17 10/09/17 13:00 13:30 14:00 Temperature Pulse Rate 58 L 52 L 54 L Pulse Rate [ Office Services Clerk ] Respiratory 21 16 18 Rate Blood Pressure 137/79 87/51 87/51 Blood Pressure [Left Arm Supine] O2 Sat by Pulse 100 100 100 Oximetry 10/09/17 10/09/17 10/09/17 14:30 15:00 15:30 Temperature Pulse Rate 50 L 43 L 69 Pulse Rate [ Office Services Clerk ] Respiratory 18 16 22 Rate Blood Pressure 113/65 113/65 115/81 Blood Pressure [Left Arm Supine] O2 Sat by Pulse 94 L 100 98 Oximetry 10/09/17 10/09/17 10/09/17 16:00 16:30 17:00 Temperature Pulse Rate 64 64 75 Pulse Rate [ 65 Office Services Clerk ] Respiratory 18 19 24 Rate Blood Pressure 115/81 141/83 141/83 Blood Pressure [Left Arm Supine] O2 Sat by Pulse 99 99 98 Oximetry 10/09/17 10/09/17 10/09/17 17:30 18:00 18:30 Temperature Pulse Rate 88 70 70 Pulse Rate [ Office Services Clerk ] Respiratory 20 14 14 Rate Blood Pressure 143/75 143/75 134/68 Blood Pressure [Left Arm Supine] O2 Sat by Pulse 98 98 98 Oximetry 10/09/17 10/09/17 10/09/17 19:00 19:30 20:00 Temperature 98.0 F Pulse Rate 64 65 65 Pulse Rate [ Office Services Clerk ] Respiratory 19 28 H 30 H Rate Blood Pressure 134/68 125/71 125/71 Blood Pressure [Left Arm Supine] O2 Sat by Pulse 98 98 97 Oximetry 10/09/17 10/09/17 10/09/17 21:00 21:30 22:00 Temperature Pulse Rate 64 73 72 Pulse Rate [ Office Services Clerk ] Respiratory 14 20 21 Rate Blood Pressure 119/63 137/78 137/78 Blood Pressure [Left Arm Supine] O2 Sat by Pulse 97 97 94 L Oximetry 10/09/17 10/09/17 10/10/17 22:25 23:00 00:00 Temperature 98.6 F Pulse Rate 84 85 77 Pulse Rate [ Office Services Clerk ] Respiratory 23 21 18 Rate Blood Pressure 142/78 142/78 118/75 Blood Pressure [Left Arm Supine] O2 Sat by Pulse 93 L 97 98 Oximetry 10/10/17 10/10/17 10/10/17 01:00 02:00 03:00 Temperature Pulse Rate 69 90 68 Pulse Rate [ Office Services Clerk ] Respiratory 28 H 16 12 Rate Blood Pressure 117/61 121/72 140/69 Blood Pressure [Left Arm Supine] O2 Sat by Pulse 95 94 L 96 Oximetry 10/10/17 10/10/17 10/10/17 04:00 05:00 06:00 Temperature 98.2 F Pulse Rate 73 67 65 Pulse Rate [ Office Services Clerk ] Respiratory 9 L 19 22 Rate Blood Pressure 144/83 125/81 142/85 Blood Pressure [Left Arm Supine] O2 Sat by Pulse 99 95 98 Oximetry 10/10/17 10/10/17 10/10/17 07:00 08:00 09:00 Temperature 98.8 F Pulse Rate 72 71 68 Pulse Rate [ Office Services Clerk ] Respiratory 16 17 32 H Rate Blood Pressure 137/98 133/74 140/84 Blood Pressure [Left Arm Supine] O2 Sat by Pulse 98 97 99 Oximetry 10/10/17 10/10/17 10/10/17 10:00 11:00 12:00 Temperature 98 F Pulse Rate 57 L 76 62 Pulse Rate [ Office Services Clerk ] Respiratory 10 L 15 25 H Rate Blood Pressure 150/91 144/84 132/76 Blood Pressure [Left Arm Supine] O2 Sat by Pulse 99 98 99 Oximetry 10/10/17 10/10/17 10/10/17 13:00 14:00 15:00 Temperature Pulse Rate 64 65 65 Pulse Rate [ Office Services Clerk ] Respiratory 22 54 H 28 H Rate Blood Pressure 137/90 118/69 121/66 Blood Pressure [Left Arm Supine] O2 Sat by Pulse 89 L 100 98 Oximetry 10/10/17 10/10/17 10/10/17 16:00 17:00 18:00 Temperature 98.2 F Pulse Rate 60 55 L 66 Pulse Rate [ Office Services Clerk ] Respiratory 22 23 11 L Rate Blood Pressure 133/98 125/81 157/88 Blood Pressure [Left Arm Supine] O2 Sat by Pulse 100 95 100 Oximetry 10/10/17 10/10/17 10/10/17 19:00 20:00 21:00 Temperature 98.9 F Pulse Rate 61 60 64 Pulse Rate [ Office Services Clerk ] Respiratory 12 14 11 L Rate Blood Pressure 159/96 121/70 132/83 Blood Pressure [Left Arm Supine] O2 Sat by Pulse 100 99 98 Oximetry 10/10/17 10/10/17 10/10/17 22:00 23:00 23:29 Temperature Pulse Rate 67 63 68 Pulse Rate [ Office Services Clerk ] Respiratory 17 12 22 Rate Blood Pressure 119/66 116/69 119/74 Blood Pressure [Left Arm Supine] O2 Sat by Pulse 96 97 97 Oximetry 10/11/17 10/11/17 10/11/17 00:00 01:00 02:00 Temperature 98.6 F Pulse Rate 59 L 52 L 66 Pulse Rate [ Office Services Clerk ] Respiratory 19 10 L 12 Rate Blood Pressure 85/45 113/59 Blood Pressure [Left Arm Supine] O2 Sat by Pulse 97 100 100 Oximetry 10/11/17 10/11/17 10/11/17 03:00 04:00 05:00 Temperature 98.2 F Pulse Rate 60 56 L 70 Pulse Rate [ Office Services Clerk ] Respiratory 16 18 27 H Rate Blood Pressure 115/70 111/59 99/59 Blood Pressure [Left Arm Supine] O2 Sat by Pulse 99 97 93 L Oximetry 10/11/17 10/11/17 10/11/17 06:00 07:00 08:00 Temperature 98.5 F Pulse Rate 54 L 54 L 85 Pulse Rate [ Office Services Clerk ] Respiratory 16 18 22 Rate Blood Pressure 119/63 113/73 158/98 Blood Pressure [Left Arm Supine] O2 Sat by Pulse 98 100 100 Oximetry 10/11/17 10/11/17 10/11/17 09:00 10:00 11:00 Temperature Pulse Rate 71 66 62 Pulse Rate [ Office Services Clerk ] Respiratory 10 L 16 8 L Rate Blood Pressure 130/88 134/76 148/84 Blood Pressure [Left Arm Supine] O2 Sat by Pulse 100 98 100 Oximetry 10/11/17 10/11/17 10/11/17 12:00 13:00 14:00 Temperature 98.7 F Pulse Rate 57 L 70 50 L Pulse Rate [ Office Services Clerk ] Respiratory 21 41 H 28 H Rate Blood Pressure 151/94 151/94 109/64 Blood Pressure [Left Arm Supine] O2 Sat by Pulse 100 98 99 Oximetry 10/11/17 10/11/17 10/11/17 15:00 16:00 17:00 Temperature 98.6 F Pulse Rate 70 62 70 Pulse Rate [ Office Services Clerk ] Respiratory 21 17 12 Rate Blood Pressure 134/83 132/74 123/64 Blood Pressure [Left Arm Supine] O2 Sat by Pulse 96 99 100 Oximetry 10/11/17 10/11/17 10/11/17 18:00 19:00 20:00 Temperature 98.8 F Pulse Rate 75 58 L 69 Pulse Rate [ Office Services Clerk ] Respiratory 50 H 15 13 Rate Blood Pressure 160/93 126/72 140/65 Blood Pressure [Left Arm Supine] O2 Sat by Pulse 100 100 100 Oximetry 10/11/17 10/11/17 10/11/17 20:28 21:00 22:00 Temperature 98.7 F Pulse Rate 66 62 79 Pulse Rate [ Office Services Clerk ] Respiratory 20 12 13 Rate Blood Pressure 131/81 131/81 148/89 Blood Pressure [Left Arm Supine] O2 Sat by Pulse 100 99 99 Oximetry 10/11/17 10/12/17 10/12/17 23:00 00:00 01:00 Temperature 98.8 F Pulse Rate 71 66 57 L Pulse Rate [ Office Services Clerk ] Respiratory 21 19 13 Rate Blood Pressure 148/89 110/68 118/65 Blood Pressure [Left Arm Supine] O2 Sat by Pulse 98 100 99 Oximetry 10/12/17 10/12/17 10/12/17 02:00 03:00 04:00 Temperature 98.1 F Pulse Rate 54 L 61 65 Pulse Rate [ Office Services Clerk ] Respiratory 18 20 14 Rate Blood Pressure 120/71 126/75 138/85 Blood Pressure [Left Arm Supine] O2 Sat by Pulse 99 99 99 Oximetry 10/12/17 10/12/17 10/12/17 05:00 06:00 07:00 Temperature Pulse Rate 61 71 63 Pulse Rate [ Office Services Clerk ] Respiratory 22 20 17 Rate Blood Pressure 140/88 138/84 142/85 Blood Pressure [Left Arm Supine] O2 Sat by Pulse 99 99 100 Oximetry 10/12/17 08:00 Temperature 98.7 F Pulse Rate 67 Pulse Rate [ Office Services Clerk ] Respiratory 13 Rate Blood Pressure 136/86 Blood Pressure [Left Arm Supine] O2 Sat by Pulse 99 Oximetry symptomatic bradycardia, with baseline A. 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 Hyperkalemia, resolved Anticipated discharge in 2-3 days Objective - Vital Signs Vital signs: Vital Signs Temp 98.7 F 10/12/17 08:00 Pulse 67 10/12/17 08:00 Resp 13 10/12/17 08:00 BP 136/86 10/12/17 08:00 Pulse Ox 99 10/12/17 08:00 Intake & Output 10/11/17 10/12/17 10/12/17 18:59 06:59 18:59 Intake Total 1589.50 2221.579 550 Output Total 600 1725 100 Balance 989.50 496.579 450 Weight 84.6 kg Intake: IV 240 270 550 0.9 NS 240 270 150 Intake, IV Titration 675.50 611.579 0 Amount DOPamine DRIP 800 mg In 197.34 269.867 Dextrose/Water 1 500ml. bag @ 7.5 MCG/KG/MIN 21. 68 mls/hr IV .Q23H4M [facility] Rx#:[id number] Heparin Sodium,Porcine/ 478.16 341.712 0 D5w Pmx 25,000 unit In Dextrose/Water 1 500ml. bag @ 10.6 UNITS/KG/HR 19 .97 mls/hr IV .Q24H [facility] Rx#:[id number] Oral [id number] 1340 Output: Urine 600 1725 100 Other: Voiding Method Urinal # Voids 2 # Bowel Movements 0 - Labs CBC & Chem 7: 10/12/17 05:21 10/12/17 05:21 Labs: Abnormal Lab Results - Last 24 Hours (Table) 10/12/17 10/12/17 10/12/17 Range/Units 05:20 05:21 05:21 RBC 4.09 L (4.30-5.90) m/uL Plt Count 144 L (150-450) k/uL PT (9.0-12.0) sec INR (<1.2) APTT 40.7 H (22.0-30.0) sec Sodium 135 L (137-145) mmol/L Glucose 112 H (74-99) mg/dL 10/12/17 Range/Units 05:21 RBC (4.30-5.90) m/uL Plt Count (150-450) k/uL PT 12.1 H (9.0-12.0) sec INR 1.3 H (<1.2) APTT (22.0-30.0) sec Sodium (137-145) mmol/L Glucose (74-99) mg/dL
[2017-10-12] MEDS: HEPARIN SODIUM,PORCINE/D5W PMX 25,000 UNIT in DEXTROSE/WATER 1 500ML.BAG IV SCH (17:19)
--- NOTE | 2017-10-12 17:29 | PN ---
PROGRESS NOTE DATE OF SERVICE: 10/12/2017 REASON FOR FOLLOWUP: Right thigh tick bite, cellulitis and rash. INTERVAL HISTORY: The patient is afebrile. He did get his pacemaker placement today. The patient denies having any chest pain or shortness of breath or cough. No abdominal pain or any pain to the right lateral thigh area. PHYSICAL EXAMINATION: Blood pressure is 136/86, pulse of 67, temperature 98.7. He is 99% on 2 L nasal cannula. General description is an elderly male lying in bed in no distress. RESPIRATORY SYSTEM: Unlabored breathing. Clear to auscultation anteriorly. HEART: S1, S2. Regular rate and rhythm. ABDOMEN: Soft. No tenderness. RIGHT LEG THIGH: Rash but no worsening. LABS: Hemoglobin 13.4, white count 7.5. BUN of 15, creatinine 0.70. DIAGNOSTIC IMPRESSION AND PLAN: Patient with a right leg thigh tick bite with a rash. To continue with doxycycline to finish a 2-week course of therapy. Continue with supportive care. MMODL / IJN: [id number] /
[2017-10-12] MEDS ORDERED: RIVAROXABAN 20 MG TAB PO SCH (17:30)
--- NOTE | 2017-10-12 17:34 | P.PN ---
Progress Note - Text Progress Note Date: 10/12/17 Due to the multiple medical problems including shortness of breath CHF bradycardia the patient will need a hospital bed at home Patient also does have weakness and also needs a hospital bed to prevent bedsores
[2017-10-12 17:37] LABS: Glucose,Whole Blood 87 mg/dL (75-99)
[2017-10-12] MEDS: APIXABAN 5 MG TAB PO SCH (20:02)
[2017-10-12] MEDS: ATORVASTATIN 40 MG TAB PO SCH (20:02)
[2017-10-12] MEDS: MELATONIN 5 MG TABLET PO PRN (23:14)
[2017-10-12 23:24] LABS: Magnesium 1.8 mg/dL (1.6-2.3)
[2017-10-13] MEDS: ceFAZolin IN SWFI 2 GM/20 ML SYRINGE IVP SCH ×2 (03:43→09:21)
[2017-10-13] MEDS: SODIUM CHLORIDE 0.9% 1,000 ML IV SCH (03:50)
[2017-10-13] MEDS: PANTOPRAZOLE 40 MG TABLET PO SCH (06:10)
[2017-10-13 07:39] LABS: Basophils # (A) 0.1 k/uL (0-0.2); Basophils % (A) 1 %; Eosinophils # (A) 0.4 k/uL (0-0.7); Eosinophils % (A) 6 %; HCT 37.1 % (39.0-53.0); HGB 12.1 gm/dL (13.0-17.5); Lymphocytes # (A) 1.3 k/uL (1.0-4.8); Lymphocytes % (A) 23 %; MCH 32.8 pg (25.0-35.0); MCHC 32.6 g/dL (31.0-37.0); MCV 100.5 fL (80.0-100.0); Mean Platelet Volume 7.3; Monocytes # (A) 0.5 k/uL (0-1.0); Monocytes % (A) 8 %; Neutrophils # (A) 3.5 k/uL (1.3-7.7); Neutrophils % (A) 60 %; Platelet Count 141 k/uL (150-450); RBC 3.69 m/uL (4.30-5.90); RDW 13.3 % (11.5-15.5); WBC 5.9 k/uL (3.8-10.6)
[2017-10-13 07:49] LABS: INR 1.3 (<1.2); Prothrombin Time 12.2 sec (9.0-12.0)
[2017-10-13 07:59] LABS: Calcium 8.9 mg/dL (8.4-10.2); Magnesium 1.9 mg/dL (1.6-2.3); Phosphorus 3.2 mg/dL (2.5-4.5); Potassium 4.3 mmol/L (3.5-5.1)
--- NOTE | 2017-10-13 08:28 | XR ---
EXAMINATION TYPE: XR chest 2V DATE OF EXAM: 10/13/2017 COMPARISON: Prior chest x-ray 10/08/2017 HISTORY: Lead placement check TECHNIQUE: Frontal and lateral views of the chest are obtained. FINDINGS: Pacemaker generator is in the left pectoral region, there is a lead in the right ventricle . Small pleural effusions are noted. Prominent lung volumes suggest COPD. There is no evident pneumot horax. Heart remains enlarged. Aorta is aneurysmal and dense. Patient is rotated. Interstitium is inc reased. IMPRESSION: No evident complication status post pacemaker placement. Small pleural effusions, correl ate for pulmonary venous hypertension and interstitial edema. Aortic aneurysm. Additional findings ab ove.
[2017-10-13] MEDS: DOXYCYCLINE MONOHYDRATE 100 MG CAPSULE PO SCH (09:12)
[2017-10-13] MEDS: ASPIRIN 81 MG PO SCH (09:14)
[2017-10-13] MEDS: THIAMINE 100 MG TAB PO SCH (09:14)
[2017-10-13] MEDS: APIXABAN 5 MG TAB PO SCH (09:14)
[2017-10-13] MEDS: FOLIC ACID 1 MG TAB PO SCH (09:14)
[2017-10-13] MEDS ORDERED: SPIRONOLACTONE 25 MG TAB PO SCH (11:00)
[2017-10-13] MEDS ORDERED: FUROSEMIDE 40 MG TAB PO SCH (11:00)
--- NOTE | 2017-10-13 11:21 | CDI ---
Last Revision, April 2017 Documentation Clarification Form Date: 10/13/2017 12:00:00 AM From: Briseida Darnell RN, CCDS Admit Date: 10/08/2017 3:53:00 PM Patient Name: Stefan Ruiz Visit Number: [id number] Discharge Date: ATTENTION: The Clinical Documentation Specialists (CDI) and [facility] Coding Staff appreciate your assistance in clarifying documentation. Please respond to the clarification below the line at the bottom and electronically sign. The CDI & [facility] Coding staff will review the response and follow-up if needed. Please note: Queries are made part of the Legal Health Record. If you have any questions, please contact the author of this message via ITS. Dr. Eduard Love Progress note on 10/12/17: CHF is documented History/Risk Factors:. Congestive heart failure, Atrial Fibrillation, Hypertension Clinical Indicators: Per patient's history. Patient presented with aphasia in ER he was able to converse normally. Lungs: clear no rhonchi, no rales Chest x-ray: no definitive left lower lobe infiltrate ECHO: EF 50 55 %, right ventricle is mildly enlarged VS/Pulse OX: 136/86 67 13 98.7 RA Treatment: Lasix IV, now Lasix 40 PO daily Monitor O2 Sat's In your professional opinion, can you please clarify the acuity and type of CHF if known? Diastolic Heart Failure: Acute Chronic Acute on Chronic Systolic Heart Failure: Acute Chronic Acute on Chronic Systolic & Diastolic Heart Failure: Acute Chronic Acute on Chronic Heart Failure Unable to Determine Other, please specify Please continue to document in your progress notes and discharge summary in order to capture severity of illness and risk of mortality. Include clinical findings that support your diagnosis. Acute on Chronic MTDD
[2017-10-13 12:38] VITALS: BP 125/72; PULSE 59; RESP 18; TEMP 97.4
--- NOTE | 2017-10-13 12:46 | P.PN ---
Subjective Progress Note Date: 10/13/17 This is an 79-year-old gentleman with history of chronic persistent atrial fibrillation, hyperlipidemia, who had a sudden onset of inability associated confusion and generalized weakness. His heart rate was noted to be significantly low as well as blood pressure on admission here. Patient was on dopamine in the intensive care unit. Ultimately patient underwent implantation of a permanent pacemaker yesterday by Dr. Fofana. Device was interrogated this morning and is functioning appropriately. Chest x-ray was reviewed which did not reveal any evidence of a pneumothorax. Echocardiogram with Doppler study was performed at revealed an ejection fraction of 50-55%, severely dilated left atrium, severe pulmonary hypertension, RVSP 58.5. Patient was seen and examined this morning, he is feeling well overall, no complaints. From our perspective he should be able to be discharged home today to follow-up in the device clinic in [address] Moody after that. We will add Lasix and Aldactone to his medication regime. We will not put the patient on a beta dina at this time, because underlying he was quite bradycardic. Objective - Vital Signs Vital signs: Vital Signs Temp 97.3 F L 10/13/17 08:00 Pulse 62 10/13/17 09:00 Resp 16 10/13/17 09:00 BP 106/64 10/13/17 08:00 Pulse Ox 97 10/13/17 08:00 Intake & Output 10/12/17 10/13/17 10/13/17 18:59 06:59 18:59 Intake Total 750 350 100 Output Total 450 200 Balance 300 150 100 Weight 84.7 kg Intake: IV 750 350 0.9 NS 350 350 Intake, IV Titration 0 Amount Heparin Sodium,Porcine/ 0 D5w Pmx 25,000 unit In Dextrose/Water 1 500ml. bag @ 10.6 UNITS/KG/HR 19 .97 mls/hr IV .Q24H [facility] Rx#:[id number] Oral 100 Output: Urine 450 200 Other: Voiding Method Urinal Urinal Urinal # Bowel Movements 1 - Exam HEENT examination is grossly unremarkable. Mucous membranes are moist. No oral lesions. Neck supple. Full range of motion. No adenopathy thyromegaly or neck vein distention. Cardiovascular examination reveals an irregular rhythm and rate. The patient is clearly in atrial fibrillation. S1-S2 normal. No discernible murmur noted. Lungs reveal clear breath sounds. Lung sounds are equal bilaterally. No adventitious lung sounds including wheezes rhonchi or crackles. Dressing at pacemaker site is dry and intact. Abdomen soft bowel sounds are heard. No masses or tenderness. Extremities are intact. No cyanosis clubbing or edema. Skin is without rash or lesion. Neurologic examination is brief but nonfocal. - Labs CBC & Chem 7: 10/13/17 07:08 10/13/17 07:08 Labs: Abnormal Lab Results - Last 24 Hours (Table) 10/13/17 10/13/17 10/13/17 Range/Units 07:08 07:08 07:08 RBC 3.69 L (4.30-5.90) m/uL Hgb 12.1 L (13.0-17.5) gm/dL Hct 37.1 L (39.0-53.0) % MCV 100.5 H (80.0-100.0) fL Plt Count 141 L (150-450) k/uL PT 12.2 H (9.0-12.0) sec INR 1.3 H (<1.2) Sodium 134 L (137-145) mmol/L Assessment and Plan Plan: Assessment and plan #1 Transient ischemic attack #2 Symptomatic bradycardia, status post implantation of permanent pacemaker #3 Nonspecific elevation of troponins #4 Hyperkalemia, resolved #5 Hypothyroidism #6 History of hypertension #7 History of deep venous thrombosis Plan From cardiology's perspective, patient may be able to be discharged home today. We will add Lasix 40 mg daily and Aldactone 25 mg daily to his medication regime. He can follow-up in the device clinic in 5 days and subsequent to that follow-up with Dr. Tipton in the office. DNP note has been reviewed, I agree with a documented findings and plan of care. Patient was seen and examined.
--- NOTE | 2017-10-13 13:51 | P.DS ---
Providers Date of admission: 10/08/17 15:53 Attending physician: Carmen Cross, DO Is an 87-year-old male with past medical history ventricular fibrillation was admitted to the hospital with hypotension and bradycardia and weakness patient was in the ICU was started on dopamine drip and underwent pacemaker placement The condition of the patient improved and the patient wants to go home does not want to go to any rehab at this time Patient did have slight elevation in troponins medical management where indicated Review of systems and systems has been reviewed all negative and positive findings as per HPI Constitutional: No acute distress, conversant, pleasant Eyes: Anicteric sclerae, moist conjunctiva, no lid-lag PERRLA ENMT: Cranial nerves grossly intact Neck: Supple, FROM, no masses, or JVD No carotid bruits No thyromegaly Lungs: Clear to auscultation Clear to percussion Normal respiratory effort, no accessory muscle use Cardiovascular: Heart regular in rate and rhythm, No murmurs, gallops, or rubs No peripheral edema Abdominal: Soft Nontender, no guarding, rebound or rigidity Abdomen moving with respiration Normoactive bowel sounds No hepatomegaly, No splenomegaly No palpable mass No abdominal wall hernia noted Skin: Normal temperature, tone, texture, turgor No induration No subcutaneous nodules No rash, lesions No ulcers Extremities: No digital cyanosis No clubbing Pedal pulses intact and symmetrical Radial pulses intact and symmetrical Normal gait and station No calf tenderness Psychiatric:Alert and oriented to person, place and time Appropriate affect Intact judgement Neuro: Generalized weakness Vital Signs 10/08/17 10/08/17 10/08/17 12:40 12:55 13:00 Temperature 97.6 F Pulse Rate 37 L 47 L 62 Pulse Rate [ Pan Helper ] Pulse Rate [ Right Pulse Oximetery] Respiratory 18 18 18 Rate Blood Pressure 137/85 139/84 156/89 Blood Pressure [Left Arm Supine] Blood Pressure [Right Arm] O2 Sat by Pulse 91 L 96 100 Oximetry 10/08/17 10/08/17 10/08/17 13:15 13:30 13:45 Temperature Pulse Rate 58 L 49 L 54 L Pulse Rate [ Pan Helper ] Pulse Rate [ Right Pulse Oximetery] Respiratory 16 18 18 Rate Blood Pressure 169/91 156/87 158/79 Blood Pressure [Left Arm Supine] Blood Pressure [Right Arm] O2 Sat by Pulse 100 96 95 Oximetry 10/08/17 10/08/17 10/08/17 14:43 15:36 16:33 Temperature 98.5 F Pulse Rate 97 98 Pulse Rate [ 56 L Pan Helper ] Pulse Rate [ Right Pulse Oximetery] Respiratory 18 18 18 Rate Blood Pressure 168/96 167/87 Blood Pressure 140/79 [Left Arm Supine] Blood Pressure [Right Arm] O2 Sat by Pulse 97 95 99 Oximetry 10/08/17 10/08/17 10/08/17 16:38 17:13 17:20 Temperature 98.5 F Pulse Rate 66 74 67 Pulse Rate [ Pan Helper ] Pulse Rate [ Right Pulse Oximetery] Respiratory 18 22 Rate Blood Pressure 152/75 142/73 Blood Pressure [Left Arm Supine] Blood Pressure [Right Arm] O2 Sat by Pulse 95 Oximetry 10/08/17 10/08/17 10/08/17 17:30 17:40 17:50 Temperature Pulse Rate 55 L 59 L 67 Pulse Rate [ Pan Helper ] Pulse Rate [ Right Pulse Oximetery] Respiratory 18 22 18 Rate Blood Pressure 142/73 142/73 142/73 Blood Pressure [Left Arm Supine] Blood Pressure [Right Arm] O2 Sat by Pulse 98 94 L 96 Oximetry 10/08/17 10/08/17 10/08/17 18:00 18:10 18:20 Temperature Pulse Rate 63 57 L 67 Pulse Rate [ Pan Helper ] Pulse Rate [ Right Pulse Oximetery] Respiratory 18 23 21 Rate Blood Pressure 142/73 142/73 138/70 Blood Pressure [Left Arm Supine] Blood Pressure [Right Arm] O2 Sat by Pulse 94 L 96 95 Oximetry 10/08/17 10/08/17 10/08/17 18:30 18:40 18:50 Temperature Pulse Rate 64 61 63 Pulse Rate [ Pan Helper ] Pulse Rate [ Right Pulse Oximetery] Respiratory 13 19 18 Rate Blood Pressure 138/70 138/70 138/70 Blood Pressure [Left Arm Supine] Blood Pressure [Right Arm] O2 Sat by Pulse 94 L 100 100 Oximetry 10/08/17 10/08/17 10/08/17 19:00 19:10 19:54 Temperature Pulse Rate 59 L 64 Pulse Rate [ Pan Helper ] Pulse Rate [ Right Pulse Oximetery] Respiratory 18 9 L Rate Blood Pressure 138/70 138/70 Blood Pressure [Left Arm Supine] Blood Pressure [Right Arm] O2 Sat by Pulse 99 99 93 L Oximetry 10/08/17 10/08/17 10/08/17 20:00 21:00 21:16 Temperature 98.5 F Pulse Rate 68 56 L 55 L Pulse Rate [ Pan Helper ] Pulse Rate [ Right Pulse Oximetery] Respiratory 18 18 15 Rate Blood Pressure 137/74 128/70 128/70 Blood Pressure [Left Arm Supine] Blood Pressure [Right Arm] O2 Sat by Pulse 96 100 99 Oximetry 10/08/17 10/08/17 10/08/17 21:30 22:00 23:00 Temperature Pulse Rate 51 L 69 70 Pulse Rate [ Pan Helper ] Pulse Rate [ Right Pulse Oximetery] Respiratory 13 16 23 Rate Blood Pressure 140/77 140/77 112/56 Blood Pressure [Left Arm Supine] Blood Pressure [Right Arm] O2 Sat by Pulse 100 97 100 Oximetry 10/09/17 10/09/17 10/09/17 00:00 01:00 02:00 Temperature 98.6 F Pulse Rate 71 66 73 Pulse Rate [ Pan Helper ] Pulse Rate [ Right Pulse Oximetery] Respiratory 28 H 18 20 Rate Blood Pressure 112/54 111/66 114/61 Blood Pressure [Left Arm Supine] Blood Pressure [Right Arm] O2 Sat by Pulse 98 97 95 Oximetry 10/09/17 10/09/17 10/09/17 02:30 03:30 04:00 Temperature 98.2 F Pulse Rate 67 63 60 Pulse Rate [ Pan Helper ] Pulse Rate [ Right Pulse Oximetery] Respiratory 24 20 16 Rate Blood Pressure 121/69 107/60 107/60 Blood Pressure [Left Arm Supine] Blood Pressure [Right Arm] O2 Sat by Pulse 92 L 99 100 Oximetry 10/09/17 10/09/17 10/09/17 04:30 05:00 05:30 Temperature Pulse Rate 57 L 57 L 70 Pulse Rate [ Pan Helper ] Pulse Rate [ Right Pulse Oximetery] Respiratory 18 19 20 Rate Blood Pressure 125/66 125/66 116/70 Blood Pressure [Left Arm Supine] Blood Pressure [Right Arm] O2 Sat by Pulse 100 100 100 Oximetry 10/09/17 10/09/17 10/09/17 06:00 06:30 07:00 Temperature Pulse Rate 66 66 55 L Pulse Rate [ Pan Helper ] Pulse Rate [ Right Pulse Oximetery] Respiratory 25 H 23 22 Rate Blood Pressure 116/70 113/68 113/68 Blood Pressure [Left Arm Supine] Blood Pressure [Right Arm] O2 Sat by Pulse 100 99 100 Oximetry 10/09/17 10/09/17 10/09/17 07:30 08:00 08:30 Temperature 98.1 F Pulse Rate 56 L 62 63 Pulse Rate [ Pan Helper ] Pulse Rate [ Right Pulse Oximetery] Respiratory 16 11 L 16 Rate Blood Pressure 122/64 122/64 101/58 Blood Pressure [Left Arm Supine] Blood Pressure [Right Arm] O2 Sat by Pulse 100 100 100 Oximetry 10/09/17 10/09/17 10/09/17 09:00 09:24 09:30 Temperature Pulse Rate 57 L 53 L Pulse Rate [ Pan Helper ] Pulse Rate [ Right Pulse Oximetery] Respiratory 25 H 21 Rate Blood Pressure 101/58 107/58 Blood Pressure [Left Arm Supine] Blood Pressure [Right Arm] O2 Sat by Pulse 100 100 100 Oximetry 10/09/17 10/09/17 10/09/17 10:00 10:30 11:00 Temperature Pulse Rate 62 53 L 63 Pulse Rate [ Pan Helper ] Pulse Rate [ Right Pulse Oximetery] Respiratory 18 27 H 14 Rate Blood Pressure 107/58 111/64 111/64 Blood Pressure [Left Arm Supine] Blood Pressure [Right Arm] O2 Sat by Pulse 100 100 100 Oximetry 10/09/17 10/09/17 10/09/17 11:30 12:00 12:30 Temperature 98.0 F Pulse Rate 67 77 60 Pulse Rate [ Pan Helper ] Pulse Rate [ Right Pulse Oximetery] Respiratory 20 20 21 Rate Blood Pressure 129/75 129/75 137/79 Blood Pressure [Left Arm Supine] Blood Pressure [Right Arm] O2 Sat by Pulse 97 98 100 Oximetry 10/09/17 10/09/17 10/09/17 13:00 13:30 14:00 Temperature Pulse Rate 58 L 52 L 54 L Pulse Rate [ Pan Helper ] Pulse Rate [ Right Pulse Oximetery] Respiratory 21 16 18 Rate Blood Pressure 137/79 87/51 87/51 Blood Pressure [Left Arm Supine] Blood Pressure [Right Arm] O2 Sat by Pulse 100 100 100 Oximetry 10/09/17 10/09/17 10/09/17 14:30 15:00 15:30 Temperature Pulse Rate 50 L 43 L 69 Pulse Rate [ Pan Helper ] Pulse Rate [ Right Pulse Oximetery] Respiratory 18 16 22 Rate Blood Pressure 113/65 113/65 115/81 Blood Pressure [Left Arm Supine] Blood Pressure [Right Arm] O2 Sat by Pulse 94 L 100 98 Oximetry 10/09/17 10/09/17 10/09/17 16:00 16:30 17:00 Temperature Pulse Rate 64 64 75 Pulse Rate [ 65 Pan Helper ] Pulse Rate [ Right Pulse Oximetery] Respiratory 18 19 24 Rate Blood Pressure 115/81 141/83 141/83 Blood Pressure [Left Arm Supine] Blood Pressure [Right Arm] O2 Sat by Pulse 99 99 98 Oximetry 10/09/17 10/09/17 10/09/17 17:30 18:00 18:30 Temperature Pulse Rate 88 70 70 Pulse Rate [ Pan Helper ] Pulse Rate [ Right Pulse Oximetery] Respiratory 20 14 14 Rate Blood Pressure 143/75 143/75 134/68 Blood Pressure [Left Arm Supine] Blood Pressure [Right Arm] O2 Sat by Pulse 98 98 98 Oximetry 10/09/17 10/09/17 10/09/17 19:00 19:30 20:00 Temperature 98.0 F Pulse Rate 64 65 65 Pulse Rate [ Pan Helper ] Pulse Rate [ Right Pulse Oximetery] Respiratory 19 28 H 30 H Rate Blood Pressure 134/68 125/71 125/71 Blood Pressure [Left Arm Supine] Blood Pressure [Right Arm] O2 Sat by Pulse 98 98 97 Oximetry 10/09/17 10/09/17 10/09/17 21:00 21:30 22:00 Temperature Pulse Rate 64 73 72 Pulse Rate [ Pan Helper ] Pulse Rate [ Right Pulse Oximetery] Respiratory 14 20 21 Rate Blood Pressure 119/63 137/78 137/78 Blood Pressure [Left Arm Supine] Blood Pressure [Right Arm] O2 Sat by Pulse 97 97 94 L Oximetry 10/09/17 10/09/17 10/10/17 22:25 23:00 00:00 Temperature 98.6 F Pulse Rate 84 85 77 Pulse Rate [ Pan Helper ] Pulse Rate [ Right Pulse Oximetery] Respiratory 23 21 18 Rate Blood Pressure 142/78 142/78 118/75 Blood Pressure [Left Arm Supine] Blood Pressure [Right Arm] O2 Sat by Pulse 93 L 97 98 Oximetry 10/10/17 10/10/17 10/10/17 01:00 02:00 03:00 Temperature Pulse Rate 69 90 68 Pulse Rate [ Pan Helper ] Pulse Rate [ Right Pulse Oximetery] Respiratory 28 H 16 12 Rate Blood Pressure 117/61 121/72 140/69 Blood Pressure [Left Arm Supine] Blood Pressure [Right Arm] O2 Sat by Pulse 95 94 L 96 Oximetry 10/10/17 10/10/17 10/10/17 04:00 05:00 06:00 Temperature 98.2 F Pulse Rate 73 67 65 Pulse Rate [ Pan Helper ] Pulse Rate [ Right Pulse Oximetery] Respiratory 9 L 19 22 Rate Blood Pressure 144/83 125/81 142/85 Blood Pressure [Left Arm Supine] Blood Pressure [Right Arm] O2 Sat by Pulse 99 95 98 Oximetry 10/10/17 10/10/17 10/10/17 07:00 08:00 09:00 Temperature 98.8 F Pulse Rate 72 71 68 Pulse Rate [ Pan Helper ] Pulse Rate [ Right Pulse Oximetery] Respiratory 16 17 32 H Rate Blood Pressure 137/98 133/74 140/84 Blood Pressure [Left Arm Supine] Blood Pressure [Right Arm] O2 Sat by Pulse 98 97 99 Oximetry 10/10/17 10/10/17 10/10/17 10:00 11:00 12:00 Temperature 98 F Pulse Rate 57 L 76 62 Pulse Rate [ Pan Helper ] Pulse Rate [ Right Pulse Oximetery] Respiratory 10 L 15 25 H Rate Blood Pressure 150/91 144/84 132/76 Blood Pressure [Left Arm Supine] Blood Pressure [Right Arm] O2 Sat by Pulse 99 98 99 Oximetry 10/10/17 10/10/17 10/10/17 13:00 14:00 15:00 Temperature Pulse Rate 64 65 65 Pulse Rate [ Pan Helper ] Pulse Rate [ Right Pulse Oximetery] Respiratory 22 54 H 28 H Rate Blood Pressure 137/90 118/69 121/66 Blood Pressure [Left Arm Supine] Blood Pressure [Right Arm] O2 Sat by Pulse 89 L 100 98 Oximetry 10/10/17 10/10/17 10/10/17 16:00 17:00 18:00 Temperature 98.2 F Pulse Rate 60 55 L 66 Pulse Rate [ Pan Helper ] Pulse Rate [ Right Pulse Oximetery] Respiratory 22 23 11 L Rate Blood Pressure 133/98 125/81 157/88 Blood Pressure [Left Arm Supine] Blood Pressure [Right Arm] O2 Sat by Pulse 100 95 100 Oximetry 10/10/17 10/10/1718 19:00 20:00 21:00 Temperature 98.9 F Pulse Rate 61 60 64 Pulse Rate [ Pan Helper ] Pulse Rate [ Right Pulse Oximetery] Respiratory 12 14 11 L Rate Blood Pressure 159/96 121/70 132/83 Blood Pressure [Left Arm Supine] Blood Pressure [Right Arm] O2 Sat by Pulse 100 99 98 Oximetry 10/10/17 10/10/17 10/10/17 22:00 23:00 23:29 Temperature Pulse Rate 67 63 68 Pulse Rate [ Pan Helper ] Pulse Rate [ Right Pulse Oximetery] Respiratory 17 12 22 Rate Blood Pressure 119/66 116/69 119/74 Blood Pressure [Left Arm Supine] Blood Pressure [Right Arm] O2 Sat by Pulse 96 97 97 Oximetry 10/11/17 10/11/17 10/11/17 00:00 01:00 02:00 Temperature 98.6 F Pulse Rate 59 L 52 L 66 Pulse Rate [ Pan Helper ] Pulse Rate [ Right Pulse Oximetery] Respiratory 19 10 L 12 Rate Blood Pressure 85/45 113/59 Blood Pressure [Left Arm Supine] Blood Pressure [Right Arm] O2 Sat by Pulse 97 100 100 Oximetry 10/11/17 10/11/17 10/11/17 03:00 04:00 05:00 Temperature 98.2 F Pulse Rate 60 56 L 70 Pulse Rate [ Pan Helper ] Pulse Rate [ Right Pulse Oximetery] Respiratory 16 18 27 H Rate Blood Pressure 115/70 111/59 99/59 Blood Pressure [Left Arm Supine] Blood Pressure [Right Arm] O2 Sat by Pulse 99 97 93 L Oximetry 10/11/17 10/11/17 10/11/17 06:00 07:00 08:00 Temperature 98.5 F Pulse Rate 54 L 54 L 85 Pulse Rate [ Pan Helper ] Pulse Rate [ Right Pulse Oximetery] Respiratory 16 18 22 Rate Blood Pressure 119/63 113/73 158/98 Blood Pressure [Left Arm Supine] Blood Pressure [Right Arm] O2 Sat by Pulse 98 100 100 Oximetry 10/11/17 10/11/17 10/11/17 09:00 10:00 11:00 Temperature Pulse Rate 71 66 62 Pulse Rate [ Pan Helper ] Pulse Rate [ Right Pulse Oximetery] Respiratory 10 L 16 8 L Rate Blood Pressure 130/88 134/76 148/84 Blood Pressure [Left Arm Supine] Blood Pressure [Right Arm] O2 Sat by Pulse 100 98 100 Oximetry 10/11/17 10/11/17 10/11/17 12:00 13:00 14:00 Temperature 98.7 F Pulse Rate 57 L 70 50 L Pulse Rate [ Pan Helper ] Pulse Rate [ Right Pulse Oximetery] Respiratory 21 41 H 28 H Rate Blood Pressure 151/94 151/94 109/64 Blood Pressure [Left Arm Supine] Blood Pressure [Right Arm] O2 Sat by Pulse 100 98 99 Oximetry 10/11/17 10/11/17 10/11/17 15:00 16:00 17:00 Temperature 98.6 F Pulse Rate 70 62 70 Pulse Rate [ Pan Helper ] Pulse Rate [ Right Pulse Oximetery] Respiratory 21 17 12 Rate Blood Pressure 134/83 132/74 123/64 Blood Pressure [Left Arm Supine] Blood Pressure [Right Arm] O2 Sat by Pulse 96 99 100 Oximetry 10/11/17 10/11/17 10/11/17 18:00 19:00 20:00 Temperature 98.8 F Pulse Rate 75 58 L 69 Pulse Rate [ Pan Helper ] Pulse Rate [ Right Pulse Oximetery] Respiratory 50 H 15 13 Rate Blood Pressure 160/93 126/72 140/65 Blood Pressure [Left Arm Supine] Blood Pressure [Right Arm] O2 Sat by Pulse 100 100 100 Oximetry 10/11/17 10/11/17 10/11/17 20:28 21:00 22:00 Temperature 98.7 F Pulse Rate 66 62 79 Pulse Rate [ Pan Helper ] Pulse Rate [ Right Pulse Oximetery] Respiratory 20 12 13 Rate Blood Pressure 131/81 131/81 148/89 Blood Pressure [Left Arm Supine] Blood Pressure [Right Arm] O2 Sat by Pulse 100 99 99 Oximetry 10/11/17 10/12/17 10/12/17 23:00 00:00 01:00 Temperature 98.8 F Pulse Rate 71 66 57 L Pulse Rate [ Pan Helper ] Pulse Rate [ Right Pulse Oximetery] Respiratory 21 19 13 Rate Blood Pressure 148/89 110/68 118/65 Blood Pressure [Left Arm Supine] Blood Pressure [Right Arm] O2 Sat by Pulse 98 100 99 Oximetry 10/12/17 10/12/17 10/12/17 02:00 03:00 04:00 Temperature 98.1 F Pulse Rate 54 L 61 65 Pulse Rate [ Pan Helper ] Pulse Rate [ Right Pulse Oximetery] Respiratory 18 20 14 Rate Blood Pressure 120/71 126/75 138/85 Blood Pressure [Left Arm Supine] Blood Pressure [Right Arm] O2 Sat by Pulse 99 99 99 Oximetry 10/12/17 10/12/17 10/12/17 05:00 06:00 07:00 Temperature Pulse Rate 61 71 63 Pulse Rate [ Pan Helper ] Pulse Rate [ Right Pulse Oximetery] Respiratory 22 20 17 Rate Blood Pressure 140/88 138/84 142/85 Blood Pressure [Left Arm Supine] Blood Pressure [Right Arm] O2 Sat by Pulse 99 99 100 Oximetry 10/12/17 10/12/17 10/12/17 08:00 16:00 20:00 Temperature 98.7 F 98.2 F Pulse Rate 67 Pulse Rate [ Pan Helper ] Pulse Rate [ Right Pulse Oximetery] Respiratory 13 13 18 Rate Blood Pressure 136/86 Blood Pressure 101/67 [Left Arm Supine] Blood Pressure [Right Arm] O2 Sat by Pulse 99 98 Oximetry 10/13/17 10/13/17 10/13/17 00:00 04:00 08:00 Temperature 96.9 F L 98.1 F 97.3 F L Pulse Rate Pulse Rate [ Pan Helper ] Pulse Rate [ 63 63 62 Right Pulse Oximetery] Respiratory 18 18 16 Rate Blood Pressure Blood Pressure 110/71 111/64 [Left Arm Supine] Blood Pressure 106/64 [Right Arm] O2 Sat by Pulse 96 95 97 Oximetry 10/13/17 10/13/17 09:00 12:00 Temperature 97.4 F L Pulse Rate Pulse Rate [ Pan Helper ] Pulse Rate [ 62 59 L Right Pulse Oximetery] Respiratory 16 18 Rate Blood Pressure Blood Pressure [Left Arm Supine] Blood Pressure 125/72 [Right Arm] O2 Sat by Pulse 98 Oximetry Discharge plan Atrovent fibrillation Bradycardia status post pacemaker placement Hypotension resolved Discharge medications see list Patient will be discharged on eliquis Patient is hemodynamically stable Mild elevation of troponins no further intervention is needed at this time Patient to follow-up with cardiology and primary care physician Consults: 10/08/17 15:53 Consult Physician Stat Consulting Provider: Nicolas Rossi Consult Reason/Comments: Atrial fibrillation, bradycardia, elevated troponin Do you want consulting provider notified?: Yes 10/08/17 16:13 Consult Physician Stat Consulting Provider: Ayse Wheat Consult Reason/Comments: TIA Do you want consulting provider notified?: Yes 10/08/17 17:39 Consult Physician Routine Consulting Provider: Chuck Roberts Consult Reason/Comments: TICK exposure, erythema migrans Do you want consulting provider notified?: Yes Consult Physician Stat Consulting Provider: Christy Cardoza Consult Reason/Comments: TIA Do you want consulting provider notified?: Yes Primary care physician: Eber Cullen Patient Condition at Discharge: Good Plan - Discharge Summary Discharge Rx Participant: No New Discharge Prescriptions: New Atorvastatin [Lipitor] 40 mg PO HS #30 tab Apixaban [Eliquis] 5 mg PO BID #60 tab Aspirin 81 mg PO DAILY #30 chew Atorvastatin [Lipitor] 40 mg PO HS #30 tab Furosemide [Lasix] 40 mg PO DAILY #30 tab Spironolactone [Aldactone] 25 mg PO DAILY #30 tab Doxycycline Monohydrate [Vibramycin] 100 mg PO BID #20 capsule Continue Lisinopril [Zestril] 10 mg PO DAILY #30 tab Discontinued Furosemide [Lasix] 40 mg PO TID Warfarin [Coumadin] 5 mg PO MOWEFR Potassium Chloride ER [K-Dur 20] 20 meq PO AC-TID No Action Levothyroxine Sodium [Synthroid] 150 mcg PO DAILY Discharge Medication List Levothyroxine Sodium [Synthroid] 150 mcg PO DAILY 11/04/15 [History] Lisinopril [Zestril] 10 mg PO DAILY #30 tab 11/07/15 [Rx] Apixaban [Eliquis] 5 mg PO BID #60 tab 10/13/17 [Rx] Aspirin 81 mg PO DAILY #30 chew 10/13/17 [Rx] Atorvastatin [Lipitor] 40 mg PO HS #30 tab 10/13/17 [Rx] Atorvastatin [Lipitor] 40 mg PO HS #30 tab 10/13/17 [Rx] Doxycycline Monohydrate [Vibramycin] 100 mg PO BID #20 capsule 10/13/17 [Rx] Furosemide [Lasix] 40 mg PO DAILY #30 tab 10/13/17 [Rx] Spironolactone [Aldactone] 25 mg PO DAILY #30 tab 10/13/17 [Rx] Follow up Appointment(s)/Referral(s): Ayse Wheat MD [STAFF PHYSICIAN] - 2 Weeks (Spoke to legal receptionist. Office will call with appointment time) Eber Cullen MD [Primary Care Provider] - 10/20/17 9:15 am () Ace Tipton MD [STAFF PHYSICIAN] - 1 Week Patient Instructions/Handouts: Transient Ischemic Attack (DC) Discharge Disposition: HOME SELF-CARE
--- NOTE | 2017-10-13 14:03 | P.PN ---
Subjective Progress Note Date: 10/13/17 Principal diagnosis: Mental status changes and bradycardia Progress note dated 10/10/2017 87-year-old male seen by my partner yesterday in consultation. He came in with an acute transient ischemic attack which is completely resolved at the time of presentation. He apparently is doing relatively well now. He does have symptomatic bradycardia and was started on dopamine for them. He was hypotensive but that's resolved as well. He does have a mild elevation of his troponins and hyperkalemia as well as a history of hypertension. In addition, the patient has a history of hypothyroidism which is being treated. The patient 's awake and alert. He was admitted on October 08. His initial presentation was that of mental status changes possible TIA bradycardia and possible pneumonia. Currently, he is in slow atrial fibrillation. He is on room air not receiving any supplemental oxygen. His dopamine is 7.5 mics per kilogram per minute. He is on heparin via weightbase protocol and a 0.9 IV at 20 mL an hour. He feels well. He is a no code patient. Plan dated 10/13/2017 This is an 87-year-old male status post pacemaker insertion for symptomatic bradycardia with hypotension. He also has a history of recent TIA which is much improved. In addition, he had elevation of his troponins, hyperkalemia which is resolved, hypothyroidism, hypertension, history of heart failure, and history of DVT. The patient is doing relatively well. According to cardiology could be discharged home. From our perspective his lung status is stable. We are following him primarily consumes in the ICU for ICU management. After today , if everything is stable, we will sign off. Objective - Vital Signs Vital signs: Vital Signs Temp 97.4 F L 10/13/17 12:00 Pulse 59 L 10/13/17 12:00 Resp 18 10/13/17 12:00 BP 125/72 10/13/17 12:00 Pulse Ox 98 10/13/17 12:00 Intake & Output 10/12/17 10/13/17 10/13/17 18:59 06:59 18:59 Intake Total 750 350 100 Output Total 450 200 150 Balance 300 150 -50 Weight 84.7 kg Intake: IV 750 350 0.9 NS 350 350 Intake, IV Titration 0 Amount Heparin Sodium,Porcine/ 0 D5w Pmx 25,000 unit In Dextrose/Water 1 500ml. bag @ 10.6 UNITS/KG/HR 19 .97 mls/hr IV .Q24H [facility] Rx#:[id number] Oral 100 Output: Urine 450 200 150 Other: Voiding Method Urinal Urinal Urinal # Bowel Movements 1 - Exam No acute distress, oriented 3. Not receiving any supplemental oxygen. HEENT examination is grossly unremarkable. Mucous membranes are moist. No oral lesions. Neck supple. Full range of motion. No adenopathy thyromegaly or neck vein distention. Cardiovascular examination reveals an irregular rhythm and rate. The patient is clearly in atrial fibrillation. S1-S2 normal. No discernible murmur noted. Lungs reveal clear breath sounds. Her sounds are equal bilaterally. No adventitious lung sounds including wheezes rhonchi or crackles. Abdomen soft bowel sounds are heard. No masses or tenderness. Extremities are intact. No cyanosis clubbing or edema. Skin is without rash or lesion. Neurologic examination is brief but nonfocal. - Labs CBC & Chem 7: 10/13/17 07:08 10/13/17 07:08 Labs: Abnormal Lab Results - Last 24 Hours (Table) 10/13/17 10/13/17 10/13/17 Range/Units 07:08 07:08 07:08 RBC 3.69 L (4.30-5.90) m/uL Hgb 12.1 L (13.0-17.5) gm/dL Hct 37.1 L (39.0-53.0) % MCV 100.5 H (80.0-100.0) fL Plt Count 141 L (150-450) k/uL PT 12.2 H (9.0-12.0) sec INR 1.3 H (<1.2) Sodium 134 L (137-145) mmol/L Assessment and Plan Assessment: Assessment Transient ischemic attack, much improved Symptomatic bradycardia with hypotension secondary to slow atrial fibrillation, status post pacemaker insertion. Nonspecific elevation of troponins, currently being evaluated by cardiology Hyperkalemia Hypothyroidism History of hypertension History of heart failure History of deep venous thrombosis Plan: Plan dated 10/10/2017 The patient seemed to be relatively stable. I've asked the nurses to start weaning his dopamine based on his heart rate. He is awake and alert. He is not receiving any supplemental oxygen. Still very concerned about his overall situation and status. Currently not having any pain. The patient's with the patient's awake and alert. I review the labs x-rays a medications. Additional recommendations and suggestions are forthcoming. He'll continue on the IV heparin and dopamine for now. White count is 9.9 in room 13.1 hematocrit 39.6 and platelet count is normal. PT 13.2 INR 1.4 and PTT is 45.6. The sodium potassium chloride and CO2 are all normal. BUN/creatinine were 25 and 0.8 respectively. Medications are very appropriate. Critical care time 32 minutes Plan dated 10/13/2017 From the cardiology standpoint, the patient apparently can be discharged. The patient seemed be doing relatively well. The pacemaker was inserted yesterday for her symptomatic bradycardia and hypotension. Denies any respiratory issues including shortness of breath chest tightness wheezing cough chest congestion phlegm production or any other complaints from the pulmonary system. Time with Patient: Greater than 30
[2017-10-13] MEDS ORDERED: MORPHINE ORAL SOLN 10 MG/5 ML CUP PO PRN (14:23)
--- NOTE | 2017-10-13 23:27 | PN ---
PROGRESS NOTE DATE OF SERVICE: 10/12/2017 REASON FOR FOLLOWUP: Right lateral thigh implant rash. INTERVAL HISTORY: The patient was seen on rounds this morning. The patient has been afebrile. He is breathing comfortably. Denies having any chest pain or shortness of breath or abdominal pain or any pain to the right leg or thigh area. EXAMINATION: Blood pressure is 125/60 with a pulse of 70, temperature 98. General description is an elderly male lying in bed in no distress. RESPIRATORY SYSTEM: Unlabored breathing, clear to auscultation anteriorly. HEART: S1, S2. Regular rate and rhythm. ABDOMEN: Soft, no tenderness. LABS: No new labs have been obtained today. DIAGNOSTIC IMPRESSION AND PLAN: Patient with right lateral thigh tick bite with rash, currently on doxycycline and continue for another ten days with close outpatient followup. Continue supportive care. MMODL / IJN: [id number] /
--- NOTE | 2017-10-14 16:09 | CDI ---
Last Revision, April 2017 Documentation Clarification Form Date: 10/13/2017 12:00:00 AM From: Briseida Darnell Admit Date: 10/08/2017 3:53:00 PM Patient Name: Stefan Ruiz Visit Number: [id number] Discharge Date: ATTENTION: The Clinical Documentation Specialists (CDI) and [facility] Coding Staff appreciate your assistance in clarifying documentation. Please respond to the clarification below the line at the bottom and electronically sign. The CDI & [facility] Coding staff will review the response and follow-up if needed. Please note: Queries are made part of the Legal Health Record. If you have any questions, please contact the author of this message via ITS. Dr. Eduard Love Progress note on 10/12/17: CHF is documented History/Risk Factors:. Congestive heart failure, Atrial Fibrillation Clinical Indicators: Per patient's history. Patient presented with aphasia in ER he was able to converse normally. Lungs: clear no rhonchi, no rales Chest x-ray: no definitive left lower lobe infiltrate ECHO: EF 50 55 %, right ventricle is mildly enlarged VS/Pulse OX: 136/86 67 13 98.7 RA Treatment: Lasix IV, now Lasix 40 PO daily Monitor O2 Sat's In your professional opinion, can you please clarify the acuity and type of CHF if known? Systolic Heart Failure: Acute Chronic Acute on Chronic Diastolic Heart Failure: Acute Chronic Acute on Chronic Systolic & Diastolic Heart Failure: Acute Chronic Acute on Chronic Heart Failure Unable to Determine Other, please specify Please continue to document in your progress notes and discharge summary in order to capture severity of illness and risk of mortality. Include clinical findings that support your diagnosis. acute on chronic diastolic chf MTDD
== END 2017-10-13 17:10 | disposition home or self-care (01) | DRG 40 ==
LOC: EC 12:05 → 6ICU 15:53 → 6SEL 10-13 00:02
PROVIDERS: ADMIT Internal Medicine; ATTEND Internal Medicine
PROC: 0JH604Z Insertion of Pacemaker, Single Chamber into Chest Subcutaneous Tissue and Fascia, Open Approach (ICD-10-PCS; principal; 2017-10-12 09:00)
PROC: 02HK3JZ Insertion of Pacemaker Lead into Right Ventricle, Percutaneous Approach (ICD-10-PCS; principal; 2017-10-12 09:00)
DX: G45.9 Transient cerebral ischemic attack, unspecified (principal); I50.33 Acute on chronic diastolic (congestive) heart failure; A69.20 Lyme disease, unspecified; J98.11 Atelectasis; L03.115 Cellulitis of right lower limb; R47.01 Aphasia; I48.2 Chronic atrial fibrillation; E03.9 Hypothyroidism, unspecified; E05.90 Thyrotoxicosis, unspecified without thyrotoxic crisis or storm; E78.5 Hyperlipidemia, unspecified; E87.5 Hyperkalemia; F10.10 Alcohol abuse, uncomplicated; I11.0 Hypertensive heart disease with heart failure; I27.20 Pulmonary hypertension, unspecified; I50.9 Heart failure, unspecified; W57.XXXA Bitten or stung by nonvenomous insect and other nonvenomous arthropods, initial encounter; Z66 Do not resuscitate; Z79.01 Long term (current) use of anticoagulants; Z86.718 Personal history of other venous thrombosis and embolism; Z96.651 Presence of right artificial knee joint; R29.704 NIHSS score 4; R40.2142 Coma scale, eyes open, spontaneous, at arrival to emergency department; R40.2362 Coma scale, best motor response, obeys commands, at arrival to emergency department; R40.2242 Coma scale, best verbal response, confused conversation, at arrival to emergency department; I95.9 Hypotension, unspecified; Z90.49 Acquired absence of other specified parts of digestive tract; Z98.42 Cataract extraction status, left eye; Z98.41 Cataract extraction status, right eye; Z96.1 Presence of intraocular lens; Z79.890 Hormone replacement therapy; Z79.899 Other long term (current) drug therapy; R77.8 Other specified abnormalities of plasma proteins
CPT/HCPCS: 33206; 36415; 70450; 70496; 70498; 71046; 80048; 80053; 80061; 81003; 82550; 82553; 83735; 84100; 84132; 84439; 84443; 84484; 85025; 85610; 85730; 86618; 93005; 93306; 95819; 96365; 96366; 99291

== ENCOUNTER 2018-01-15 17:32 | Inpatient (IN) | payer MEDICARE, BC ==
[2018-01-15] MEDS ORDERED: MORPHINE SULFATE 4 MG/ML SYRINGE IVP STA ×2 (17:52→19:29)
[2018-01-15] MEDS ORDERED: THIAMINE 100 MG TAB PO STA (17:53)
[2018-01-15] MEDS ORDERED: FOLIC ACID 1 MG TAB PO STA (17:54)
--- NOTE | 2018-01-15 17:56 | ED ---
General Adult HPI - General Chief complaint: Extremity Injury, Lower Stated complaint: HIP PAIN Time Seen by Provider: 01/15/18 17:37 Source: patient, EMS Mode of arrival: EMS Limitations: no limitations - History of Present Illness Initial comments: 87 yoM on Eliquis for chronic afib presenting after a mechanical fall. Patient states he was on his motorized scooter when he leaned forward to reach for something on his left, hitting the reverse button, causing him to drive backwards and fall out. He states he landed on concrete on his left side. No LOC but did hit his head. He did not ambulate afterwards. He states he uses the scooter when outside of his home and use a 4-wheeled walker in his home. He admits to daily ETOH use but denies any history of DTs or withdraw seizure. He denies any presyncopal symptoms. - Related Data Home Medications Medication Instructions Recorded Confirmed Levothyroxine Sodium [Synthroid] 150 mcg PO DAILY@0900 11/04/15 01/15/18 Apixaban [Eliquis] 2.5 mg PO BID@0900,209901/15/18 01/15/18 Aspirin 81 mg PO DAILY@0901/15/18 01/15/18 Atorvastatin [Lipitor] 40 mg PO DAILY@209901/15/18 01/15/18 Furosemide [Lasix] 20 mg PO DAILY@1600 01/15/18 01/15/18 Furosemide [Lasix] 40 mg PO DAILY@89901/15/18 01/15/18 Lisinopril [Zestril] 2.5 mg PO DAILY@89901/15/18 01/15/18 Spironolactone [Aldactone] 25 mg PO DAILY@89901/15/18 01/15/18 Allergies Allergy/AdvReac Type Severity Reaction Status Date / Time No Known Allergies Allergy Verified 01/15/18 17:53 Review of Systems ROS Statement: Those systems with pertinent positive or pertinent negative responses have been documented in the HPI. Review of Systems Constitutional: Denies fever, chills Eyes: Denies change in vision, Denies pain Ears, nose, mouth, throat: Denies headaches, Denies sore throat Cardiovascular: Denies chest pain. Denies palpitations Respiratory: Denies shortness of breath, Denies cough Gastrointestinal: Denies abdominal pain. Denies nausea, vomiting, diarrhea. Genitourinary: Denies hematuria, Denies infections Musculoskeletal: Positive left hip pain. Denies swelling Integumentary: Denies rash Neurological: Denies headache, focal weakness, focal numbness Psychiatric: Denies anxiety, Denies depression Hematologic/Lymphatic: Denies easy bleeding or bruising ROS Other: All systems not noted in ROS Statement are negative. 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 Contusion to left temporal area. No mtz's sign. Eyes: PERRL. EOMI. No scleral icterus. No injected conjunctiva Neck: Full ROM Chest/Lungs: Clear to auscultation bilaterally. No wheezing, rhonchi, or rales Cardiac: Regular rate, rhythm. No murmurs or rubs Abdomen/GI: Soft, nontender, nondistended. No rebound, guarding, or rigidity. Musculoskeletal: No midline cervical, thoracic, or lumbar spine tenderness. Unable to ROM left hip or knee secondary to pain. L3-S2 intact on left. 1+ DP pulses bilaterally. LLE shortened and externally rotated. Full ROM left ankle and foot. Skin: Warm, dry, intact Neurologic: A/Ox3, no weakness, no sensory deficit, no coordination deficit. Unable to assess gait. Limitations: no limitations Course Vital Signs 01/15/18 01/15/18 01/15/18 17:43 20:04 20:30 Temperature 98.7 F Pulse Rate 64 48 L 50 L Respiratory 18 18 18 Rate Blood Pressure 117/71 72/46 91/55 O2 Sat by Pulse 97 95 98 Oximetry 01/15/18 21:54 Temperature 97.0 F L Pulse Rate 52 L Respiratory 18 Rate Blood Pressure 93/53 O2 Sat by Pulse 98 Oximetry Medical Decision Making - Medical Decision Making 87 yoM presenting after a mechanical fall. On initial exam the patient is awake , alert, and in NAD. VSS. He had no presyncopal symptoms. Patient has obvious LLE shortening. He was given Morphine with minimal improvement. He was found to have a left intertrochanteric fracture with comminution on the left. He was given a second dose of Motrin. He became hypotensive shortly after that but was mentating appropriately. A pressure bag was hung. Patient's initial hemoglobin was 11.1, which is similar to his baseline. A second hemoglobin was sent. Previous creatinine was 1.1 and therefore patient has a mild SENTHIL today. Repeat hemoglobin is 10.6. MAP staying above 65. I spoke with Dr. Kendrick who is agreeable to admission with medicine on consult for surgical clearance. I spoke with sound physician food production supervisor regarding patient. Contact information: Joseph Chen [phone] Enoch: [phone] - Lab Data Result diagrams: 01/15/18 20:41 01/15/18 18:26 Lab Results 01/15/18 01/15/18 01/15/18 Range/Units 18:26 18:26 18:26 WBC 8.6 (3.8-10.6) k/uL RBC 3.45 L (4.30-5.90) m/uL Hgb 11.1 L (13.0-17.5) gm/dL Hct 35.0 L (39.0-53.0) % MCV 101.6 H (80.0-100.0) fL MCH 32.3 (25.0-35.0) pg MCHC 31.8 (31.0-37.0) g/dL RDW 14.1 (11.5-15.5) % Plt Count 175 (150-450) k/uL Neutrophils % 78 % Lymphocytes % 10 % Monocytes % 7 % Eosinophils % 4 % Basophils % 1 % Neutrophils # 6.7 (1.3-7.7) k/uL Lymphocytes # 0.9 L (1.0-4.8) k/uL Monocytes # 0.6 (0-1.0) k/uL Eosinophils # 0.3 (0-0.7) k/uL Basophils # 0.1 (0-0.2) k/uL Macrocytosis Slight PT 10.7 (9.0-12.0) sec INR 1.1 (<1.2) APTT 22.9 (22.0-30.0) sec Sodium 135 L (137-145) mmol/L Potassium 4.3 (3.5-5.1) mmol/L Chloride 103 (98-107) mmol/L Carbon Dioxide 22 (22-30) mmol/L Anion Gap 10 mmol/L BUN 43 H (9-20) mg/dL Creatinine 1.33 H (0.66-1.25) mg/dL Est GFR (CKD-EPI)AfAm 55 (>60 ml/min/1.73 sqM) Est GFR (CKD-EPI)NonAf 48 (>60 ml/min/1.73 sqM) Glucose 117 H (74-99) mg/dL Calcium 9.2 (8.4-10.2) mg/dL Magnesium 2.4 H (1.6-2.3) mg/dL Serum Alcohol <10 mg/dL 01/15/18 Range/Units 20:41 WBC 11.1 H (3.8-10.6) k/uL RBC 3.19 L (4.30-5.90) m/uL Hgb 10.6 L (13.0-17.5) gm/dL Hct 32.6 L (39.0-53.0) % MCV 102.2 H (80.0-100.0) fL MCH 33.3 (25.0-35.0) pg MCHC 32.6 (31.0-37.0) g/dL RDW 14.1 (11.5-15.5) % Plt Count 165 (150-450) k/uL Neutrophils % % Lymphocytes % % Monocytes % % Eosinophils % % Basophils % % Neutrophils # (1.3-7.7) k/uL Lymphocytes # (1.0-4.8) k/uL Monocytes # (0-1.0) k/uL Eosinophils # (0-0.7) k/uL Basophils # (0-0.2) k/uL Macrocytosis Slight PT (9.0-12.0) sec INR (<1.2) APTT (22.0-30.0) sec Sodium (137-145) mmol/L Potassium (3.5-5.1) mmol/L Chloride (98-107) mmol/L Carbon Dioxide (22-30) mmol/L Anion Gap mmol/L BUN (9-20) mg/dL Creatinine (0.66-1.25) mg/dL Est GFR (CKD-EPI)AfAm (>60 ml/min/1.73 sqM) Est GFR (CKD-EPI)NonAf (>60 ml/min/1.73 sqM) Glucose (74-99) mg/dL Calcium (8.4-10.2) mg/dL Magnesium (1.6-2.3) mg/dL Serum Alcohol mg/dL Disposition Clinical Impression: Intertrochanteric fracture of left femur, Fall from motorized mobility scooter , initial encounter, SENTHIL (acute kidney injury) Disposition: ADMITTED IP TO THIS [facility] Condition: Good Decision to Admit Reason: Admit from EC Decision Date: 01/15/18 Decision Time: 21:30
[2018-01-15 18:43] LABS: Basophils # (A) 0.1 k/uL (0-0.2); Basophils % (A) 1 %; Eosinophils # (A) 0.3 k/uL (0-0.7); Eosinophils % (A) 4 %; HGB 11.1 gm/dL (13.0-17.5); Lymphocytes # (A) 0.9 k/uL (1.0-4.8); Lymphocytes % (A) 10 %; MCH 32.3 pg (25.0-35.0); MCHC 31.8 g/dL (31.0-37.0); MCV 101.6 fL (80.0-100.0); Macrocytosis Slight; Mean Platelet Volume 7.5; Monocytes # (A) 0.6 k/uL (0-1.0); Monocytes % (A) 7 %; Neutrophils # (A) 6.7 k/uL (1.3-7.7); Neutrophils % (A) 78 %; Platelet Count 175 k/uL (150-450); RBC 3.45 m/uL (4.30-5.90); RDW 14.1 % (11.5-15.5); WBC 8.6 k/uL (3.8-10.6)
[2018-01-15 18:53] LABS: Alcohol <10 mg/dL; Anion Gap 10 mmol/L; Blood Urea Nitrogen 43 mg/dL (9-20); Calcium 9.2 mg/dL (8.4-10.2); Carbon Dioxide 22 mmol/L (22-30); Chloride 103 mmol/L (98-107); Glucose 117 mg/dL (74-99); INR 1.1 (<1.2); Magnesium 2.4 mg/dL (1.6-2.3); Partial Thromboplastin Time 22.9 sec (22.0-30.0); Potassium 4.3 mmol/L (3.5-5.1); Prothrombin Time 10.7 sec (9.0-12.0); Sodium 135 mmol/L (137-145)
--- NOTE | 2018-01-15 19:08 | CT ---
EXAMINATION TYPE: CT brain chandni balbuena DATE OF EXAM: 01/15/2018 COMPARISON: CT brain 10/08/2017 HISTORY: Fall with left parietal head injury. Patient on blood thinners. CT DLP: 1169.2 mGycm Automated exposure control for dose reduction was used. TECHNIQUE: CT scan of the head and cervical spine are performed without contrast. FINDINGS: There is cerebral cortical atrophy. There is no mass effect nor midline shift. There is n o sign of intracranial hemorrhage. The calvarium appears intact. There is a few millimeter anterior subluxation of C4 in relation to C5. There is narrowing of C5-6 C6 -7 disc spaces with spur formation. The skull base is intact. There is no compression fracture. There is multilevel facet arthropathy. IMPRESSION: Cerebral atrophy. No acute intracranial abnormality. No change. Spondylotic changes in the cervical spine with minimal degenerative first-degree C4-5 spondylolisthes is. No fracture.
[2018-01-15] MEDS ORDERED: SODIUM CHLORIDE 0.9% 1,000 ML IV ONE (19:28)
--- NOTE | 2018-01-15 19:29 | XR ---
EXAMINATION TYPE: XR femur LT DATE OF EXAM: 01/15/2018 COMPARISON: NONE HISTORY: Pain after a fall TECHNIQUE: 4 views FINDINGS: There is intertrochanteric fracture of the left femur with mild coxa vera deformity. There is atherosclerotic vascular calcification. Knee joint appears intact. There is narrowing of the media l joint space of the left knee. Acetabulum appears intact. IMPRESSION: Acute intertrochanteric fracture left femur.
--- NOTE | 2018-01-15 19:30 | XR ---
EXAMINATION TYPE: XR knee limited LT DATE OF EXAM: 01/15/2018 COMPARISON: NONE HISTORY: Pain TECHNIQUE: 2 views FINDINGS: There is narrowing of the medial joint space of the left knee. There is calcification of th e menisci. There is no sign of a joint effusion. There is normal alignment. There is vascular calcifi cation. I see no fracture. IMPRESSION: Moderate osteoarthritis with chondrocalcinosis. No fracture seen.
--- NOTE | 2018-01-15 20:12 | XR ---
EXAMINATION TYPE: XR Hip LT and AP Pelvis DATE OF EXAM: 01/15/2018 COMPARISON: NONE HISTORY: Left hip pain TECHNIQUE: A single AP view of the pelvis is obtained. Two views of the left hip are obtained. FINDINGS: The pelvic ring is intact. There is slightly impacted intertrochanteric fracture left femur with comminution. There is no dislocation. Sacroiliac joints are intact. IMPRESSION: Acute intertrochanteric fracture left femur.
--- NOTE | 2018-01-15 20:13 | XR ---
EXAMINATION TYPE: XR chest 1V DATE OF EXAM: 01/15/2018 COMPARISON: 10/13/2017 HISTORY: Left hip pain TECHNIQUE: Single frontal view of the chest is obtained. FINDINGS: Heart is enlarged. There is no heart failure. Thoracic aorta is atheromatous. There is lef t axillary pacemaker with the lead tip in the right ventricle. IMPRESSION: Cardiomegaly. No active cardiopulmonary disease. There is clearing of pleural fluid comp ared to old exam.
[2018-01-15 21:01] LABS: HCT 32.6 % (39.0-53.0); HGB 10.6 gm/dL (13.0-17.5); MCH 33.3 pg (25.0-35.0); MCHC 32.6 g/dL (31.0-37.0); MCV 102.2 fL (80.0-100.0); Macrocytosis Slight; Mean Platelet Volume 7.8; Platelet Count 165 k/uL (150-450); RBC 3.19 m/uL (4.30-5.90); RDW 14.1 % (11.5-15.5); WBC 11.1 k/uL (3.8-10.6)
[2018-01-15] MEDS ORDERED: NALOXONE 0.4 MG/ML 1 ML VIAL IV PRN (21:23)
[2018-01-15] MEDS ORDERED: BISACODYL 5 MG TABLET.DR PO PRN (21:23)
[2018-01-15] MEDS ORDERED: LORazepam 2 MG/ML INJ IV PRN (22:21)
[2018-01-15] MEDS ORDERED: ceFAZolin IN SWFI 2 GM/20 ML SYRINGE IVP ONE (22:30)
--- NOTE | 2018-01-15 22:51 | P.CONS ---
History of Present Illness - Reason for Consult Consult date: 01/15/18 Preoperative clearance Requesting physician: Deidra Vyas - Chief Complaint Left intertrochanteric fracture of the hip - History of Present Illness 87-year-old male with PMH of CHF, hypothyroidism, A. fib, alcohol abuse presents the ED after mechanical fall. Patient currently ambulates with a motorized scooter. Patient reports trying to reach over to the left side to grab something and accidentally hitting the reverse button which caused him to lose his balance and fall on his left side. Post fall, patient experienced excruciating left hip pain. Patient denies LOC. Patient currently complains of hip pain, 10 out of 10 in severity, exacerbated with movement. Of note, patient endorses drinking. Patient reports drinking 2 beers every other day. He denies any withdrawal symptoms He currently denies any headache, lower extremity swelling, nausea, vomiting, fever, cough, chest pain, shortness of breath, palpitations, changes in urination or bowel habits. Patient had extensive imaging in the ED. Imaging revealed a left intertrochanteric fracture of the left femur. CT brain showed cerebral atrophy. EKG shows atrial fibrillation with slow ventricular response. CBC showed hemoglobin of 11.1, hematocrit of 35, MCV of 101.6. Coag panel was within normal limits. CMP showed sodium of 135, BUNs 43, creatinine of 1.33, glucose of 117, magnesium of 2.4. Patient reports being functional. He has human resources for cleaning needs and meal on wheels. He prepares breakfast for himself. He ambulates with a 4 wheeled walker at home. Patient is admitted under orthopedic surgery for management of left intertrochanteric fracture. Medicine on consult for preoperative clearance. His PCP is Dr. Cullen. 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, bilateral cataract replacement Past Anesthesia/Blood Transfusion Reactions: No Reported Reaction Past Psychological History: No Psychological Hx Reported Smoking Status: Never smoker Past Alcohol Use History: Daily Past Drug Use History: None Reported - Past Family History Brother(s) Additional Family Medical History / Comment(s): osteomyelitis Mother Family Medical History: No Reported History Father Family Medical History: No Reported History Medications and Allergies Home Medications Medication Instructions Recorded Confirmed Type Levothyroxine Sodium [Synthroid] 150 mcg PO DAILY@89911/04/15 01/15/18 History Apixaban [Eliquis] 2.5 mg PO BID@0900,209901/15/18 01/15/18 History Aspirin 81 mg PO DAILY@89901/15/18 01/15/18 History Atorvastatin [Lipitor] 40 mg PO DAILY@209901/15/18 01/15/18 History Furosemide [Lasix] 20 mg PO DAILY@1600 01/15/18 01/15/18 History Furosemide [Lasix] 40 mg PO DAILY@89901/15/18 01/15/18 History Lisinopril [Zestril] 2.5 mg PO DAILY@89901/15/18 01/15/18 History Spironolactone [Aldactone] 25 mg PO DAILY@89901/15/18 01/15/18 History Allergies Allergy/AdvReac Type Severity Reaction Status Date / Time No Known Allergies Allergy Verified 01/15/18 17:53 Physical Exam Vitals: Vital Signs Temp Pulse Resp BP Pulse Ox 01/15/18 20:30 50 L 18 91/55 98 01/15/18 20:04 48 L 18 72/46 95 01/15/18 17:43 98.7 F 64 18 117/71 97 Intake and Output 01/15/18 01/15/18 01/15/18 06:59 14:59 22:59 Other: Weight 81.647 kg General: [non toxic], [no distress], [appears at stated age] Derm: [warm], [dry] Head: [atraumatic], [normocephalic], [symmetric] Eyes: [EOMI], [no lid lag], [anicteric sclera] Mouth: [no lip lesion], [mucus membranes moist] Cardiovascular: [Irregular, bradycardia], [no murmur], [1+ DP pulses bilaterally ] Lungs: [CTA bilateral], [no rhonchi, no rales] , [no accessory muscle use] Abdominal: [soft], [ nontender to palpation], [no guarding], [no appreciable organomegaly] Ext: [Shortened left lower extremity with external rotation], [no edema], [no contractures], [limited ROM of the left hip due to pain ] Neuro: [ CN II-XI grossly intact], [no focal neuro deficits] Psych: [Alert], [oriented], [appropriate affect] Results CBC & Chem 7: 01/15/18 20:41 01/15/18 18:26 Labs: Abnormal Lab Results - Last 24 Hours (Table) 01/15/18 01/15/18 01/15/18 Range/Units 18:26 18:26 20:41 WBC 11.1 H (3.8-10.6) k/uL RBC 3.45 L 3.19 L (4.30-5.90) m/uL Hgb 11.1 L 10.6 L (13.0-17.5) gm/dL Hct 35.0 L 32.6 L (39.0-53.0) % MCV 101.6 H 102.2 H (80.0-100.0) fL Lymphocytes # 0.9 L (1.0-4.8) k/uL Sodium 135 L (137-145) mmol/L BUN 43 H (9-20) mg/dL Creatinine 1.33 H (0.66-1.25) mg/dL Glucose 117 H (74-99) mg/dL Magnesium 2.4 H (1.6-2.3) mg/dL CT Scan - head: report reviewed Assessment and Plan Assessment: Assessment and Plan 1. Acute L intertrochanteric Fx of the L hip: Seen on XR. 2/2 Mechanical fall. Ortho onboard. Pain management Tylenol and Tramadol PRN. Will give Cefazolin 2g IV x 1. Soriano score 0.96%. Would hold Eliquis for 48H prior to Sx. NPO for possible intervention. FU PT/OT, vit D, Ortho Sx consult 2. EtOH abuse: Daily drinker. [facility] protocol. Ativan IV PRN for WD. Folic acid, Thiamine and MVI PO QD. 3. Pre-renal azotemia: BUN 43 Cr 1.33, baseline ~ 1.0. Likely due to dehydration. Avoid nephrotoxins. Continue LR at 75 ml/h. FU BMP in the AM 4. Anemia: Hg 10.6 Hct 32.6 MCV 102.2. Macrocytic, likely due to EtOH. Needs monitoring due to hip Fx and being on Eliquis. FU CBC in the AM 5. Leukocytosis: WBC 11.1. No fever or signs of infection. Likely due to pain. FU CBC in the AM 6. A-Fib: Hold Eliquis due to need for Sx. Telemetry monitoring. 7. Hypothyroidism: Stable. Continue Synthroid 150 mcg PO QD. 8. HFrEF: Low-normal EF of 50-55% on 09/2017 Echo. Continue Aldactone 25 mg PO QD. 9. ASCVD risk: Continue ASA 81 mg PO QD, Lipitor 40 mg PO QHS. 10. DVT Prophylaxis: Hold AC due to need for Sx. Patient high risk for surgery, though benefits outweigh risks. Would hold Eliquis for 48 hours prior to surgery.
[2018-01-15] MEDS: traMADol 50 MG TAB PO PRN (22:54)
[2018-01-15] MEDS: MELATONIN 3 MG TABLET PO PRN (22:54)
[2018-01-15] MEDS: LACTATED RINGERS 1,000 ML IV SCH (23:00)
[2018-01-16] MEDS ORDERED: HYDROcodone/APAP 5-325MG 1 EACH TAB PO STA (01:12)
[2018-01-16] MEDS ORDERED: HYDROcodone/APAP 5-325MG 1 EACH TAB PO PRN (01:41)
[2018-01-16] MEDS: traMADol 50 MG TAB PO PRN ×3 (07:01→23:40)
[2018-01-16 08:04] LABS: HCT 30.6 % (39.0-53.0); HGB 9.9 gm/dL (13.0-17.5); MCH 32.8 pg (25.0-35.0); MCHC 32.4 g/dL (31.0-37.0); Macrocytosis Slight; Mean Platelet Volume 7.2; Platelet Count 160 k/uL (150-450); RBC 3.03 m/uL (4.30-5.90); RDW 14.2 % (11.5-15.5); WBC 8.4 k/uL (3.8-10.6)
[2018-01-16 08:14] LABS: Calcium 8.9 mg/dL (8.4-10.2); Potassium 4.7 mmol/L (3.5-5.1)
[2018-01-16] MEDS: ASPIRIN 81 MG PO SCH (09:36)
[2018-01-16] MEDS: LISINOPRIL 2.5 MG TAB PO SCH (09:37)
[2018-01-16] MEDS: LEVOTHYROXINE 75 MCG TAB PO SCH (09:37)
[2018-01-16] MEDS: SPIRONOLACTONE 25 MG TAB PO SCH (09:38)
[2018-01-16] MEDS: FOLIC ACID 1 MG TAB PO SCH (09:38)
[2018-01-16] MEDS: MULTIVITAMINS, THERA 1 EACH TAB PO SCH (09:38)
[2018-01-16] MEDS: THIAMINE 100 MG TAB PO SCH (09:39)
--- NOTE | 2018-01-16 12:48 | P.HPOR ---
History of Present Illness H&P Date: 01/16/18 Chief Complaint: Left hip pain and inability ambulate status post fall Patient is a pleasant 87-year-old male who was seen and examined at bedside with his grandson present. Yesterday he was using a motorized scooter to aid in ambulation. He bent forward to get something when he hit the reverse on the scooter causing it to go backwards. He fell off a scooter landing on his left side. He has had severe left-sided hip pain since that time and inability ambulate. He was brought to the hospital for further evaluation. X-rays of the left hip and pelvis were taken of the time which showed evidence of left comminuted intertrochanteric hip fracture. He was admitted to Dr. Kendrick for further evaluation treatment. Patient has been seen by medicine already at this admittance. Patient has a history of Eliquis use. He last took this medication yesterday morning, 01/15/2018. This medicine is currently being held by medicine images patient for surgical intervention. Patient states she does have severe pain in his left hip with any movement of the left hip. His pain is better controlled at rest. Patient has a history of atrial fibrillation and daily alcohol consumption. Patient does not have history of delirium tremens. Patient continues to be seen and examined by medicine. Patient has not had breakfast this morning and continues to be nothing by mouth status. 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, bilateral cataract replacement Past Anesthesia/Blood Transfusion Reactions: No Reported Reaction Past Psychological History: No Psychological Hx Reported Smoking Status: Never smoker Past Alcohol Use History: Daily Past Drug Use History: None Reported - Past Family History Brother(s) Additional Family Medical History / Comment(s): osteomyelitis Mother Family Medical History: No Reported History Father Family Medical History: No Reported History Medications and Allergies Home Medications Medication Instructions Recorded Confirmed Type Levothyroxine Sodium [Synthroid] 150 mcg PO DAILY@0900 11/04/15 01/15/18 History Apixaban [Eliquis] 2.5 mg PO BID@0900,209901/15/18 01/15/18 History Aspirin 81 mg PO DAILY@89901/15/18 01/15/18 History Atorvastatin [Lipitor] 40 mg PO DAILY@209901/15/18 01/15/18 History Furosemide [Lasix] 20 mg PO DAILY@1600 01/15/18 01/15/18 History Furosemide [Lasix] 40 mg PO DAILY@89901/15/18 01/15/18 History Lisinopril [Zestril] 2.5 mg PO DAILY@89901/15/18 01/15/18 History Spironolactone [Aldactone] 25 mg PO DAILY@89901/15/18 01/15/18 History Allergies Allergy/AdvReac Type Severity Reaction Status Date / Time No Known Allergies Allergy Verified 01/16/18 05:31 Physical Examination Physical exam: Patient is awake, alert, and oriented 3 Vital signs stable Good chest excursion with deep inspiration and expiration Abdomen soft nontender Left lower extremity is shortened and externally rotated Pain with palpation of the left hip Significant pain with internal and external rotation of the left hip No pain with internal and external rotation of the right hip Neurovascularly intact bilateral lower extremities Dorsiflexion, plantarflexion, and extensor hallucis longus positive sustained bilaterally Calves are soft and supple; No signs or symptoms of DVT; No calf pain Results Pertinent studies: X-rays the left hip and pelvis taken on 01/15/2018: Evidence of left comminuted intertrochanteric hip fracture - Labs Labs: Abnormal Lab Results - Last 24 Hours (Table) 01/15/18 01/15/18 01/15/18 Range/Units 18:26 18:26 20:41 WBC 11.1 H (3.8-10.6) k/uL RBC 3.45 L 3.19 L (4.30-5.90) m/uL Hgb 11.1 L 10.6 L (13.0-17.5) gm/dL Hct 35.0 L 32.6 L (39.0-53.0) % MCV 101.6 H 102.2 H (80.0-100.0) fL Lymphocytes # 0.9 L (1.0-4.8) k/uL Sodium 135 L (137-145) mmol/L BUN 43 H (9-20) mg/dL Creatinine 1.33 H (0.66-1.25) mg/dL Glucose 117 H (74-99) mg/dL Magnesium 2.4 H (1.6-2.3) mg/dL 01/16/18 01/16/18 Range/Units 07:27 07:27 WBC (3.8-10.6) k/uL RBC 3.03 L (4.30-5.90) m/uL Hgb 9.9 L (13.0-17.5) gm/dL Hct 30.6 L (39.0-53.0) % MCV 101.0 H (80.0-100.0) fL Lymphocytes # (1.0-4.8) k/uL Sodium 136 L (137-145) mmol/L BUN 37 H (9-20) mg/dL Creatinine 1.27 H (0.66-1.25) mg/dL Glucose 120 H (74-99) mg/dL Magnesium (1.6-2.3) mg/dL Microbiology - Last 24 Hours (Table) 01/15/18 23:50 Urine Culture - Preliminary Urine,Catheterized H & H 01/15/18 01/15/18 01/16/18 Range/Units 18:26 20:41 07:27 Hgb 11.1 L 10.6 L 9.9 L (13.0-17.5) gm/dL Hct 35.0 L 32.6 L 30.6 L (39.0-53.0) % Coagulation 01/15/18 Range/Units 18:26 INR 1.1 (<1.2) Result Diagrams: 01/16/18 07:27 01/16/18 07:27 Assessment and Plan Assessment: Assessment: Left comminuted intertrochanteric hip fracture Left hip pain Inability to ambulate Status post fall from motorized scooter Atrial fibrillation Alcohol dependence (1) Inability to ambulate due to hip Current Visit: Yes Status: Acute Code(s): R26.2 - DIFFICULTY IN WALKING, NOT ELSEWHERE CLASSIFIED SNOMED Code(s): 625443958 (2) Fall from motorized mobility scooter, initial encounter Current Visit: Yes Status: Acute Code(s): V00.831A - FALL FROM MOTORIZED MOBILITY SCOOTER, INITIAL ENCOUNTER SNOMED Code(s): 11832941 (3) Intertrochanteric fracture of left femur Current Visit: Yes Status: Acute Code(s): S72.142A - DISPLACED INTERTROCHANTERIC FRACTURE OF LEFT FEMUR, INIT SNOMED Code(s): 408590083 (4) Afib Current Visit: No Status: Acute Code(s): I48.91 - UNSPECIFIED ATRIAL FIBRILLATION SNOMED Code(s): 00106200 (5) EtOH dependence Current Visit: No Status: Acute Code(s): F10.20 - ALCOHOL DEPENDENCE, UNCOMPLICATED SNOMED Code(s): 91773854 Plan: Plan: 1. Patient has been discussed in detail with Dr. Kendrick. Imaging has been reviewed. Patient has been discussed in detail with medicine. After reviewing of imaging, physical examination the patient and further discussion with the patient, we will plan to proceed forward with surgical intervention for further treatment in regards to the patient's left comminuted intratrochanteric hip fracture. Surgical intervention provides him with the best opportunity for the patient to have relief of his symptoms and provide him some ability to ambulate Dr. Kendrick would like to proceed for surgical intervention today, 01/16/2018. He states 48-hour protocol for discontinuation of Eliquis use is for elective orthopedic procedures. This is an acute fracture which requires more acute care. After further discussion with medicine, they do feel they would be able to clear him for surgical intervention today. We'll currently plan for surgical intervention today, 01/16/2018, between 1700 and 1800 hrs. Patient will remain nothing by mouth status. He will remain on bed rest and nonweightbearing on the left lower extremity in anticipation for surgical intervention. This plan has been discussed in detail with the patient and his family and they grew this plan. 2. Medicine will continue to follow the patient closely for medical clearance and his other medical diagnoses. Time with Patient: Greater than 30
--- NOTE | 2018-01-16 13:30 | P.PN ---
Subjective Progress Note Date: 01/16/18 Patient seen and examined, resting comfortably in bed asleep. Easily arousable , appears oriented, very appropriate this morning. Denies any symptoms of alcohol withdrawal, reports taking his last dose of eloquent session today morning 01/15. No acute events overnight Objective - Vital Signs Vital signs: Vital Signs Temp 97.8 F 01/16/18 07:00 Pulse 64 01/16/18 07:00 Resp 14 01/16/18 07:00 BP 110/62 01/16/18 07:00 Pulse Ox 100 01/16/18 07:00 Intake & Output 01/15/18 01/16/18 01/16/18 18:59 06:59 18:59 Intake Total 600 Output Total 525 Balance 75 Weight 81.647 kg Intake: Intake, IV Titration 600 Amount Lactated Ringers 1,000 ml 600 @ 75 mls/hr IV .[id number] [facility] Rx#:[id number] Output: Urine 525 - Exam Constitutional: No acute distress, conversant, pleasant Eyes: Anicteric sclerae, moist conjunctiva, no lid-lag, PERRLA ENMT: NC/AT,Oropharynx clear, no erythema, exudates Neck:Supple, FROM, no masses, or JVD, No carotid bruits; No thyromegaly Lungs: Clear to auscultation, Clear to percussion, Normal respiratory effort, no accessory muscle use Cardiovascular: Heart regular in rate and rhythm, No murmurs, gallops, or rubs no peripheral edema Abdominal: Soft Nontender, nom distended, no guarding, no rebound or rigidity, Normoactive bowel sounds No hepatomegaly, No splenomegaly, No palpable mass No abdominal wall hernia noted Skin: Normal temperature, tone, texture, turgor, No induration No subcutaneous nodules, No rash, lesions, No ulcers Extremities left lower extremity shortened and rotated externally, tender to palpation of the left hip Neurology: Cranial nerves II 12 grossly intact no focal deficits appreciated - Labs CBC & Chem 7: 01/16/18 07:27 01/16/18 07:27 Labs: Abnormal Lab Results - Last 24 Hours (Table) 01/15/18 01/15/18 01/15/18 Range/Units 18:26 18:26 20:41 WBC 11.1 H (3.8-10.6) k/uL RBC 3.45 L 3.19 L (4.30-5.90) m/uL Hgb 11.1 L 10.6 L (13.0-17.5) gm/dL Hct 35.0 L 32.6 L (39.0-53.0) % MCV 101.6 H 102.2 H (80.0-100.0) fL Lymphocytes # 0.9 L (1.0-4.8) k/uL Sodium 135 L (137-145) mmol/L BUN 43 H (9-20) mg/dL Creatinine 1.33 H (0.66-1.25) mg/dL Glucose 117 H (74-99) mg/dL Magnesium 2.4 H (1.6-2.3) mg/dL 01/16/18 01/16/18 Range/Units 07:27 07:27 WBC (3.8-10.6) k/uL RBC 3.03 L (4.30-5.90) m/uL Hgb 9.9 L (13.0-17.5) gm/dL Hct 30.6 L (39.0-53.0) % MCV 101.0 H (80.0-100.0) fL Lymphocytes # (1.0-4.8) k/uL Sodium 136 L (137-145) mmol/L BUN 37 H (9-20) mg/dL Creatinine 1.27 H (0.66-1.25) mg/dL Glucose 120 H (74-99) mg/dL Magnesium (1.6-2.3) mg/dL Microbiology - Last 24 Hours (Table) 01/15/18 23:50 Urine Culture - Preliminary Urine,Catheterized Assessment and Plan (1) Intertrochanteric fracture of left femur Narrative/Plan: * Orthopedic service Dr. Kendrick primary team plans to perform ORIF L shirt intramedullary nail fixation for left hip * Defer to primary team regarding pain management Current Visit: Yes Status: Acute Code(s): S72.142A - DISPLACED INTERTROCHANTERIC FRACTURE OF LEFT FEMUR, INIT SNOMED Code(s): 843038989 (2) Inability to ambulate due to hip Current Visit: Yes Status: Acute Code(s): R26.2 - DIFFICULTY IN WALKING, NOT ELSEWHERE CLASSIFIED SNOMED Code(s): 939536608 (3) CHF (congestive heart failure) Narrative/Plan: * CHF type unknown * Apparently stable clinically euvolemic * Continue Lasix and spironolactone regimen Current Visit: No Status: Chronic Code(s): I50.9 - HEART FAILURE, UNSPECIFIED SNOMED Code(s): 57609432 (4) Chronic a-fib Narrative/Plan: * Status post pacemaker rate currently controlled * Previously on anticoagulation with Eliquis 2.5 mg by mouth twice a day currently held prior to surgery Current Visit: No Status: Acute Code(s): I48.2 - CHRONIC ATRIAL FIBRILLATION SNOMED Code(s): 696234159 (5) EtOH dependence Narrative/Plan: * No signs of alcohol withdrawal Current Visit: No Status: Acute Code(s): F10.20 - ALCOHOL DEPENDENCE, UNCOMPLICATED SNOMED Code(s): 74007567 Plan: Disposition * Patient currently at approximately 30 hours without anticoagulation Tonie would prefer to optimize the being off for 48 hours * However weighing risk and benefit for having surgery as soon as possible, patient is cleared to proceed with surgery but will likely have increased risk of bleeding
[2018-01-16] MEDS: LACTATED RINGERS 1,000 ML IV SCH ×2 (18:28→23:40)
[2018-01-16] MEDS: MELATONIN 3 MG TABLET PO PRN (20:02)
[2018-01-16] MEDS: ACETAMINOPHEN TAB 325 MG TAB PO PRN (20:03)
[2018-01-16] MEDS: ATORVASTATIN 40 MG TAB PO SCH (20:03)
[2018-01-17] MEDS: traMADol 50 MG TAB PO PRN ×2 (04:50→13:03)
[2018-01-17] MEDS: LISINOPRIL 2.5 MG TAB PO SCH (10:14)
[2018-01-17] MEDS: LEVOTHYROXINE 75 MCG TAB PO SCH (10:14)
[2018-01-17] MEDS: SPIRONOLACTONE 25 MG TAB PO SCH (10:14)
[2018-01-17] MEDS: FOLIC ACID 1 MG TAB PO SCH (10:14)
[2018-01-17] MEDS: THIAMINE 100 MG TAB PO SCH (10:14)
[2018-01-17] MEDS: ASPIRIN 81 MG PO SCH (10:14)
[2018-01-17] MEDS: MULTIVITAMINS, THERA 1 EACH TAB PO SCH (10:14)
--- NOTE | 2018-01-17 11:16 | P.PN ---
Subjective Progress Note Date: 01/17/18 Patient seen and examined, resting comfortably in bed asleep. Easily arousable , appears oriented, very appropriate this morning. Denies any symptoms of alcohol withdrawal, reports taking his last dose of eliquis. No acute events overnight, surgery delayed yesterday. Will likely have it today Objective - Vital Signs Vital signs: Vital Signs Temp 97.8 F 01/17/18 07:00 Pulse 54 L 01/17/18 07:00 Resp 16 01/17/18 07:00 BP 112/67 01/17/18 07:00 Pulse Ox 98 01/17/18 07:00 Intake & Output 01/16/18 01/17/18 01/17/18 18:59 06:59 18:59 Intake Total 225 Output Total 500 Balance -500 225 Weight 81.647 kg Intake: Intake, IV Titration 225 Amount Lactated Ringers 1,000 ml 225 @ 75 mls/hr IV .[id number] [facility] Rx#:[id number] Output: Urine 500 Uretheral (Peña) 500 Other: Voiding Method Indwelling Catheter Indwelling Catheter - Exam Constitutional: No acute distress, conversant, pleasant Eyes: Anicteric sclerae, moist conjunctiva, no lid-lag, PERRLA ENMT: NC/AT,Oropharynx clear, no erythema, exudates Neck:Supple, FROM, no masses, or JVD, No carotid bruits; No thyromegaly Lungs: Clear to auscultation, Clear to percussion, Normal respiratory effort, no accessory muscle use Cardiovascular: Heart regular in rate and rhythm, No murmurs, gallops, or rubs no peripheral edema Abdominal: Soft Nontender, nom distended, no guarding, no rebound or rigidity, Normoactive bowel sounds No hepatomegaly, No splenomegaly, No palpable mass No abdominal wall hernia noted Skin: Normal temperature, tone, texture, turgor, No induration No subcutaneous nodules, No rash, lesions, No ulcers Extremities left lower extremity shortened and rotated externally, tender to palpation of the left hip Neurology: Cranial nerves II 12 grossly intact no focal deficits appreciated - Labs CBC & Chem 7: 01/16/18 07:27 01/16/18 07:27 Labs: Microbiology - Last 24 Hours (Table) 01/15/18 23:50 Urine Culture - Preliminary Urine,Catheterized Assessment and Plan (1) Intertrochanteric fracture of left femur Narrative/Plan: * Orthopedic service Dr. Kendrick primary team plans to perform ORIF L shirt intramedullary nail fixation for left hip * Defer to primary team regarding pain management Current Visit: Yes Status: Acute Code(s): S72.142A - DISPLACED INTERTROCHANTERIC FRACTURE OF LEFT FEMUR, INIT SNOMED Code(s): 309533077 (2) Inability to ambulate due to hip Current Visit: Yes Status: Acute Code(s): R26.2 - DIFFICULTY IN WALKING, NOT ELSEWHERE CLASSIFIED SNOMED Code(s): 439964092 (3) CHF (congestive heart failure) Narrative/Plan: * CHF type unknown * Apparently stable clinically euvolemic * Continue Lasix and spironolactone regimen Current Visit: No Status: Chronic Code(s): I50.9 - HEART FAILURE, UNSPECIFIED SNOMED Code(s): 32724020 (4) Chronic a-fib Narrative/Plan: * Status post pacemaker rate currently controlled * Previously on anticoagulation with Eliquis 2.5 mg by mouth twice a day currently held prior to surgery Current Visit: No Status: Acute Code(s): I48.2 - CHRONIC ATRIAL FIBRILLATION SNOMED Code(s): 175921331 (5) EtOH dependence Narrative/Plan: * No signs of alcohol withdrawal Current Visit: No Status: Acute Code(s): F10.20 - ALCOHOL DEPENDENCE, UNCOMPLICATED SNOMED Code(s): 89715925 Plan: Disposition * Patient currently at greater than 48 hours without anticoagulation Eliquis free to proceed with surgery
[2018-01-17] MEDS ORDERED: IV FLUID CONTINUATION 1,000 ML IV ONE (16:49)
[2018-01-17] MEDS ORDERED: ceFAZolin IN SWFI 2 GM/20 ML SYRINGE IVP STA (17:22)
[2018-01-17] MEDS ORDERED: diphenhydrAMINE 50 MG/ML 1 ML VIAL ONE (18:46)
[2018-01-17] MEDS ORDERED: fentaNYL (PF) 50 MCG/ML 2 ML AMP ONE (18:46)
[2018-01-17] MEDS ORDERED: SODIUM CHLORIDE 0.9% 50 ML with ceFAZolin 2,000 MG IV ONE ×2 (18:46)
[2018-01-17] MEDS ORDERED: MIDAZOLAM 2 MG/2 ML VIAL ONE (18:46)
[2018-01-17] MEDS: LACTATED RINGERS 1,000 ML IV SCH (19:22)
[2018-01-17] MEDS ORDERED: NALOXONE 0.4 MG/ML 1 ML VIAL IV PRN (20:30)
[2018-01-17] MEDS ORDERED: HYDROmorphone 1 MG/ML 1 ML SYRINGE IVP PRN (20:30)
--- NOTE | 2018-01-17 20:31 | P.OP ---
Date of Procedure: 01/17/18 Preoperative Diagnosis: 1. Left intertrochanteric hip fracture 2. History of cerebrovascular accident 3. Coronary artery disease 4. Daily alcohol use Postoperative Diagnosis: Same Procedure(s) Performed: Operative fixation of left intertrochanteric hip fracture with intramedullary hip screw Implants: Synthes short TFN Anesthesia: spinal Surgeon: Sameer Kendrick Estimated Blood Loss (ml): 50 IV fluids (ml): 650 Pathology: none sent Condition: stable Disposition: PACU Indications for Procedure: The patient is a very pleasant 87-year-old male with multiple medical problems who sustained a ground-level fall resulting in a left intertrochanteric hip fracture. He was seen in the emergency department and then admitted to orthopedics. He was seen and cleared for surgery by internal medicine. I met with the patient and his family preoperatively discussed treatment. I recommended operative fixation with an intramedullary hip screw to facilitate mobilization out of bed. The patient and his family are well aware of the potential risks and competitions of surgery including but not limited to risk of anesthesia, risk of superficial infection, risk of deep infection, risk of delayed wound healing, risk of wound necrosis, risk of damage to blood vessels or nerves, risk of fracture nonunion, risk of fracture malunion, risk of collapse, risk of failure of hardware, risk of need for further surgery including revision intramedullary nailing versus calcar replacing total hip replacement, DVT, PE, acute coronary event, stroke, pneumonia, pressure sore and possibly loss of life. The patient and his family voiced her understanding of these potential complications and also acknowledged that there are other less common complications possible. They provided their verbal and written consent to go forward with surgery. Description of Procedure: The patient was identified in preoperative holding and the correct left leg was marked with my initials. I reviewed the consent form with the patient his son. Their questions were answered. The patient was then brought back to the operating room. He was positioned on the gurney once inside the operating room and a spinal anesthetic was administered. He was then carefully transferred onto a fracture table. A light sedation was given by anesthesia. The affected left leg was placed in the boot of the fracture table and secured with Velcro straps in the boot and an Ray wrap. The unaffected right leg was placed in a well leg johnson and flexed at the hip and knee to facilitate imaging. A timeout was then performed identifying the correct patient, operative extremity , and procedure. Following the timeout a reduction was performed using the fracture table. A perineal post was placed and a combination of longitudinal traction, adduction, and internal rotation was applied. C-arm fluoroscopy was brought in to verify that the fracture was reduced in 2 planes. The left leg was then prepped and draped in the standard sterile fashion. I began by making a stab incision in line with the femur proximal to the greater trochanter. A guidepin was placed at the medial tip of the greater trochanter and driven to the level of the lesser trochanter. The position of the wire was verified with fluoroscopy in 2 planes. A scalpel was used to create a path over the guidewire through the skin, subcutaneous tissue and fascia down to the greater trochanter. A soft tissue protector and opening reamer was then used to open the proximal canal. The guidepin and opening reamer removed. A short 11 mm nail was then hooked up to a targeting arm. I verified that the trochars lined up with the slots on the nail. The nail was then gently tapped into place. The nail was fully seated to allow a low center helical blade on the AP view. An incision was made over the lateral pin and dissection was carried down to the fascia. The trocar was brought down to the lateral femur. A guidepin was placed in the low center position on the AP view and centered on the lateral view. The guidepin was then measured, reamed, and a helical blade was tapped into place. The set screw was fully brought down and then backed off half a turn to allow for compression. The trocar was turned counterclockwise to apply pressure to the fracture site. The trocar for the distal interlocking screw was placed through the targeting arm and a stab incision was made to the skin and subcu tissue. The trocar was brought down to bone, the distal femur was drilled, and a distal interlocking screw was placed. The targeting arm was removed proximally. Final fluoroscopic shots were taken including an AP of the proximal femur and hip and a lateral view. The fracture appeared to be adequately reduced and the hardware was in acceptable position. Both wounds were copiously irrigated and closed in layers. I verified that all instrument, sponge, and sharp counts were correct. Sterile dressings consisting of Adaptic, 4 x 4, and Tegaderm were applied. The drapes were taken down, the patient was carefully taken out of the fracture table and transferred to a gurney, and he was brought to PACU in stable condition. Plan: The patient is to be toe-touch weightbearing on his left leg. He'll receive 2 doses of postoperative antibiotics. Since he is currently on Eliquis I will defer to internal medicine for DVT prophylaxis.
--- NOTE | 2018-01-17 20:47 | XR ---
Limited left hip HISTORY: Open reduction internal fixation 2 intraoperative C-arm images document the procedure.
[2018-01-17 21:38] LABS: Basophils % (A) 0 %; Eosinophils # (A) 0.3 k/uL (0-0.7); Eosinophils % (A) 3 %; HCT 31.2 % (39.0-53.0); HGB 10.3 gm/dL (13.0-17.5); Lymphocytes % (A) 9 %; MCH 33.1 pg (25.0-35.0); MCHC 32.9 g/dL (31.0-37.0); MCV 100.6 fL (80.0-100.0); Macrocytosis Slight; Mean Platelet Volume 7.7; Monocytes # (A) 0.7 k/uL (0-1.0); Monocytes % (A) 7 %; Neutrophils # (A) 8.5 k/uL (1.3-7.7); Neutrophils % (A) 80 %; Platelet Count 145 k/uL (150-450); RDW 14.1 % (11.5-15.5); WBC 10.7 k/uL (3.8-10.6)
[2018-01-17] MEDS: ATORVASTATIN 40 MG TAB PO SCH (21:52)
[2018-01-17] MEDS: SODIUM CHLORIDE 0.9% 1,000 ML IV SCH (22:06)
[2018-01-18] MEDS: traMADol 50 MG TAB PO PRN ×2 (01:09→20:22)
[2018-01-18] MEDS: LACTATED RINGERS 1,000 ML IV SCH ×2 (02:44→16:11)
[2018-01-18] MEDS: ceFAZolin IN SWFI 2 GM/20 ML SYRINGE IVP SCH ×2 (02:51→11:41)
[2018-01-18] MEDS: SODIUM CHLORIDE 0.9% 1,000 ML IV SCH ×2 (07:51→17:11)
[2018-01-18] MEDS: ASPIRIN 81 MG PO SCH (08:51)
[2018-01-18] MEDS: LEVOTHYROXINE 75 MCG TAB PO SCH (08:55)
--- NOTE | 2018-01-18 10:37 | FL ---
Fluoroscopy HISTORY: Fracture, open reduction internal fixation 44 seconds fluoroscopy time supplied to the referring clinician. 2 intraoperative C-arm images docum ent the procedure. See dictated report from orthopedic surgery.
[2018-01-18] MEDS: MULTIVITAMINS, THERA 1 EACH TAB PO SCH (11:41)
[2018-01-18] MEDS: FOLIC ACID 1 MG TAB PO SCH (11:41)
[2018-01-18] MEDS: THIAMINE 100 MG TAB PO SCH (11:41)
--- NOTE | 2018-01-18 13:46 | P.PN ---
Subjective Progress Note Date: 01/18/18 Principal diagnosis: Left IT fracture Patient is seen at bedside this today. He is postop day #1 from left IT nail for hip fracture. He has pain at the surgical site as expected but denies any new complaints. He denies numbness, tingling or calf pain. Review of systems is negative for fever, chills, chest pain, shortness of breath or other Objective - Vital Signs Vital signs: Vital Signs Temp 98.7 F 01/18/18 07:40 Pulse 75 01/18/18 07:40 Resp 16 01/18/18 07:40 BP 112/74 01/18/18 07:40 Pulse Ox 98 01/18/18 07:40 Intake & Output 01/17/18 01/18/18 01/18/18 18:59 06:59 18:59 Intake Total 700 100 Output Total 500 550 Balance 200 -450 Weight 81.647 kg 81.647 kg Intake: IV 700 100 Output: Urine 500 500 Uretheral (Peña) 500 Estimated Blood Loss 50 Other: Voiding Method Indwelling Catheter Indwelling Catheter Indwelling Catheter - Exam Inspection reveals a benign surgical wound. There is no active bleeding or drainage. Neurovascular status is intact throughout the lower extremity with motor and sensation fully intact. Calf is soft and nontender. 2+ dorsalis pedis pulse and less than 2 second cap refill is present - Constitutional General appearance: Present: no acute distress - Labs CBC & Chem 7: 01/17/18 21:17 01/16/18 07:27 Labs: Abnormal Lab Results - Last 24 Hours (Table) 01/17/18 Range/Units 21:17 WBC 10.7 H (3.8-10.6) k/uL RBC 3.10 L (4.30-5.90) m/uL Hgb 10.3 L (13.0-17.5) gm/dL Hct 31.2 L (39.0-53.0) % MCV 100.6 H (80.0-100.0) fL Plt Count 145 L (150-450) k/uL Neutrophils # 8.5 H (1.3-7.7) k/uL Microbiology - Last 24 Hours (Table) 01/15/18 23:50 Urine Culture - Final Urine,Catheterized Assessment and Plan (1) Intertrochanteric fracture of left femur Narrative/Plan: He will continue with routine postop orthopedic protocol including pain management, wound care, DVT prophylaxis and medical management. Expect that he will transfer to [facility] in next few days Current Visit: Yes Status: Acute Code(s): S72.142A - DISPLACED INTERTROCHANTERIC FRACTURE OF LEFT FEMUR, INIT SNOMED Code(s): 381323891 Time with Patient: Less than 30
--- NOTE | 2018-01-18 18:01 | P.PN ---
Subjective Progress Note Date: 01/18/18 (delayed charting patient seen at 1030) Principal diagnosis: Hip pain Patient is an 87-year-old male with a past medical history of congestive heart failure, DVT, and thyroid disorder who presented to the ED after a mechanical fall. He lives with a motorized scooter and was trying to reach something and fell on his left side. He was subsequently found have an intratrochanteric left hip fracture. On 01/17 he underwent IM hip nailing. He is also been found to have acute kidney injury and his diuretics were held. Patient seen and examined at bedside. He complains of mild pain but not significant enough to want any additional pain medications. He has not had a bowel movement since admission. He states he is eating and drinking well. He denies chest pain, shortness of breath, or lightheadedness and dizziness. He is anxious towards with physical therapy. Objective - Vital Signs Vital signs: Vital Signs Temp 98 F 01/18/18 14:52 Pulse 83 01/18/18 14:52 Resp 16 01/18/18 14:52 BP 111/70 01/18/18 14:52 Pulse Ox 99 01/18/18 14:52 Intake & Output 01/17/18 01/18/18 01/18/18 18:59 06:59 18:59 Intake Total 700 100 500 Output Total 500 550 300 Balance 200 -450 200 Weight 81.647 kg 81.647 kg Intake: IV 700 100 Oral 500 Output: Urine 500 500 300 Uretheral (Peña) 500 300 Estimated Blood Loss 50 Other: Voiding Method Indwelling Catheter Indwelling Catheter Indwelling Catheter - Exam General: non toxic, no distress, appears at stated age Derm: warm, dry Head: atraumatic, normocephalic, symmetric Eyes: EOMI, no lid lag, anicteric sclera Mouth: no lip lesion, mucus membranes moist Cardiovascular: S1S2 irreg, no murmur, positive posterior tibial pulse bilateral , Lungs: CTA bilateral, no rhonchi, no rales , no accessory muscle use Abdominal: soft, nontender to palpation, no guarding, no appreciable organomegaly Ext: no gross muscle atrophy, no edema, no contractures Neuro: CN II-XI grossly intact, no focal neuro deficits Psych: Alert, oriented, appropriate affect - Labs CBC & Chem 7: 01/17/18 21:17 01/16/18 07:27 Labs: Abnormal Lab Results - Last 24 Hours (Table) 01/17/18 Range/Units 21:17 WBC 10.7 H (3.8-10.6) k/uL RBC 3.10 L (4.30-5.90) m/uL Hgb 10.3 L (13.0-17.5) gm/dL Hct 31.2 L (39.0-53.0) % MCV 100.6 H (80.0-100.0) fL Plt Count 145 L (150-450) k/uL Neutrophils # 8.5 H (1.3-7.7) k/uL Assessment and Plan Assessment: Left intertrochanteric hip fracture -Status post IM nailing on 01/17 -Management as per primary team Mechanical fall -Fall precautions Chronic A. fib with controlled ventricular response -Eliquis on hold as per surgery -Not chronically on rate controlling medications and rate is currently controlled -Recently taken off metoprolol secondary to symptomatic bradycardia Dehydration -Hold Lasix and Aldactone -Hold lisinopril -Gentle IV fluids -Repeat basic metabolic profile in a.m. Chronic anemia -At or near baseline -Follow CBC EtOH abuse -No signs of withdrawal -Continue with thiamine supplementation -We'll not initiate C was concerned about amount of Ativan prescribed patients advanced age -We'll monitor closely for signs of withdrawal DVT prophylaxis: ASA, SCDs Discussed with: Patient, nursing Anticipated discharge: 2-[address]: Rehab A total of 25 minutes was spent on the care of this complex patient more than 50 % of the time was spent in counseling and care coordination.
[2018-01-18] MEDS: ATORVASTATIN 40 MG TAB PO SCH (20:22)
[2018-01-18] MEDS ORDERED: SENNOSIDES 8.6 MG TAB PO SCH (21:00)
[2018-01-18] MEDS: MELATONIN 3 MG TABLET PO PRN (22:15)
[2018-01-18] MEDS: ACETAMINOPHEN TAB 325 MG TAB PO PRN (23:41)
[2018-01-19] MEDS: LACTATED RINGERS 1,000 ML IV SCH (05:10)
[2018-01-19] MEDS: SODIUM CHLORIDE 0.9% 1,000 ML IV SCH (05:18)
[2018-01-19 07:10] LABS: HCT 28.7 % (39.0-53.0); HGB 9.3 gm/dL (13.0-17.5); MCH 33.2 pg (25.0-35.0); MCHC 32.3 g/dL (31.0-37.0); MCV 102.7 fL (80.0-100.0); Macrocytosis Slight; Mean Platelet Volume 7.7; Platelet Count 151 k/uL (150-450); RBC 2.79 m/uL (4.30-5.90); RDW 14.1 % (11.5-15.5); WBC 7.5 k/uL (3.8-10.6)
[2018-01-19 07:24] LABS: Anion Gap 5 mmol/L; Blood Urea Nitrogen 20 mg/dL (9-20); Calcium 8.8 mg/dL (8.4-10.2); Carbon Dioxide 23 mmol/L (22-30); Chloride 109 mmol/L (98-107); Glucose 98 mg/dL (74-99); Potassium 4.3 mmol/L (3.5-5.1); Sodium 137 mmol/L (137-145)
--- NOTE | 2018-01-19 08:58 | P.DS ---
Providers Date of admission: 01/15/18 21:30 Expected date of discharge: 01/19/18 Attending physician: Sameer Kendrick Consults: 01/15/18 21:23 Consult Physician Stat Consulting Provider: Deidra Vyas Consult Reason/Comments: medical clearance Do you want consulting provider notified?: Already Contacted Primary care physician: Eber Cullen - Discharge Diagnosis(es) (1) Intertrochanteric fracture of left femur Patient was admitted to the OR on 01/17/2018 to undergo stabilization fixation of left IT fracture with IT nail/IM screw. He desired to proceed with elective surgery after given informed consent. He underwent the above procedure which he tolerated well without complication. Postoperative hospital course has remained without complication. On day of discharge he is afebrile, vital signs stable, labs within acceptable ranges, tolerating by mouth meds and diet, voiding without difficulty, positive flatus, denies abdominal pain or calf pain , pain is controlled on oral pain medication and has no new complaints. Wound is benign, neurovascular status is intact, calf is soft and nontender, abdomen soft and nontender. Review of systems is negative for numbness, tingling, fever , chills, chest pain, shortness breath, nausea, vomiting, dizziness, headaches, slurred speech or other. Current Visit: Yes Status: Acute Priority: Medium Procedures: Left IT nail Patient Condition at Discharge: Good Plan - Discharge Summary Discharge Rx Participant: No New Discharge Prescriptions: New Docusate [Colace] 100 mg PO BID #60 capsule HYDROcodone/APAP 5-325MG [[place] 5-325] 1 tab PO Q4HR PRN #42 tab PRN Reason: Pain No Action Levothyroxine Sodium [Synthroid] 150 mcg PO DAILY@0900 Lisinopril [Zestril] 2.5 mg PO DAILY@0900 Furosemide [Lasix] 40 mg PO DAILY@0900 Furosemide [Lasix] 20 mg PO DAILY@1600 Apixaban [Eliquis] 2.5 mg PO BID@0900,2100 Atorvastatin [Lipitor] 40 mg PO DAILY@2100 Aspirin 81 mg PO DAILY@0900 Spironolactone [Aldactone] 25 mg PO DAILY@0900 Discharge Medication List Levothyroxine Sodium [Synthroid] 150 mcg PO DAILY@0900 11/04/15 [History] Apixaban [Eliquis] 2.5 mg PO BID@899,209901/15/18 [History] Aspirin 81 mg PO DAILY@89901/15/18 [History] Atorvastatin [Lipitor] 40 mg PO DAILY@209901/15/18 [History] Furosemide [Lasix] 20 mg PO DAILY@159901/15/18 [History] Furosemide [Lasix] 40 mg PO DAILY@89901/15/18 [History] Lisinopril [Zestril] 2.5 mg PO DAILY@89901/15/18 [History] Spironolactone [Aldactone] 25 mg PO DAILY@89901/15/18 [History] Docusate [Colace] 100 mg PO BID #60 capsule 01/19/18 [Rx] HYDROcodone/APAP 5-325MG [[place] 5-325] 1 tab PO Q4HR PRN #42 tab 01/19/18 [Rx] Follow up Appointment(s)/Referral(s): Eber Cullen MD [Primary Care Provider] - 1-2 days Sameer Kendrick MD [Medical Doctor] - 1 Week Discharge Disposition: TRANSFER TO SNF/ECF
[2018-01-19] MEDS ORDERED: FUROSEMIDE 40 MG TAB PO SCH (09:00)
--- NOTE | 2018-01-19 10:07 | P.PN ---
Subjective Progress Note Date: 01/19/18 Objective - Vital Signs Vital signs: Vital Signs Temp 98.2 F 01/19/18 07:39 Pulse 84 01/19/18 07:39 Resp 18 01/19/18 07:39 BP 116/69 01/19/18 07:39 Pulse Ox 94 L 01/19/18 07:39 Intake & Output 01/18/18 01/19/18 01/19/18 18:59 06:59 18:59 Intake Total 500 1200 200 Output Total 300 400 Balance 200 800 200 Weight 81.647 kg Intake: Intake, IV Titration 1200 Amount Sodium Chloride 0.9% 1, 1200 000 ml @ 100 mls/hr IV . Q10H [facility] Rx#:[id number] Oral 500 200 Output: Urine 300 400 Uretheral (Torrez) 300 Other: Voiding Method Indwelling Catheter Indwelling Catheter - Labs CBC & Chem 7: 01/19/18 06:46 01/19/18 06:46 Labs: Abnormal Lab Results - Last 24 Hours (Table) 01/19/18 01/19/18 Range/Units 06:46 06:46 RBC 2.79 L (4.30-5.90) m/uL Hgb 9.3 L (13.0-17.5) gm/dL Hct 28.7 L (39.0-53.0) % MCV 102.7 H (80.0-100.0) fL Chloride 109 H (98-107) mmol/L Assessment and Plan Assessment: Left intertrochanteric hip fracture -Status post IM nailing on 01/17 -Management as per primary team Constipation - add miralax today, continue colace or senna Mechanical fall -Fall precautions Chronic A. fib with controlled ventricular response -Resume eliquis -Not chronically on rate controlling medications and rate is currently controlled -Recently taken off metoprolol secondary to symptomatic bradycardia Dehydration, resolved - resume home Lasix, Aldactone, and lisinopril -Gentle IV fluids -Repeat basic metabolic profile 01/23-01/26 Chronic anemia -At or near baseline -Follow CBC EtOH abuse -No signs of withdrawal -Continue with thiamine supplementation -We'll not initiate CIWA concerned about amount of Ativan prescribed patients advanced age -We'll monitor closely for signs of withdrawal Medically stable for discharge to [facility] if able to pass voiding trial once torrez removed. DVT prophylaxis: ASA, SCDs Discussed with: Patient, nursing Anticipated discharge:today Anticipated discharge place: Rehab A total of 25 minutes was spent on the care of this complex patient more than 50 % of the time was spent in counseling and care coordination.
[2018-01-19] MEDS ORDERED: POLYETHYLENE GLYCOL 3350 17 GM POWD.PACK PO SCH (10:15)
[2018-01-19] MEDS: ASPIRIN 81 MG PO SCH (10:22)
[2018-01-19] MEDS: LEVOTHYROXINE 75 MCG TAB PO SCH (10:22)
[2018-01-19] MEDS: THIAMINE 100 MG TAB PO SCH (13:11)
[2018-01-19] MEDS: FOLIC ACID 1 MG TAB PO SCH (13:11)
[2018-01-19] MEDS: MULTIVITAMINS, THERA 1 EACH TAB PO SCH (13:11)
--- NOTE | 2018-01-19 13:54 | CDI ---
Last Revision, April 2017 Documentation Clarification Form Date: 01/19/2018 1:30:09 PM From: Briseida Darnell RN, CCDS Admit Date: 01/15/2018 9:30:00 PM Patient Name: Stefan Ruiz Visit Number: [id number] Discharge Date: ATTENTION: The Clinical Documentation Specialists (CDI) and [facility] Coding Staff appreciate your assistance in clarifying documentation. Please respond to the clarification below the line at the bottom and electronically sign. The CDI & [facility] Coding staff will review the response and follow-up if needed. Please note: Queries are made part of the Legal Health Record. If you have any questions, please contact the author of this message via ITS. Carmen Desir DO History/Risk Factors: Heart Failure DVT, Thyroid Disorder, Alcohol abuse Clinical Indicators: Patient with past medial history of congestive heart failure who present after a mechanical fall with imaging revealing a left intertrochanteric fracture of the left femur. He denies any cough, chest pain or shortness or breath. 01/15/18 progress note: Low-normal EF of 50-55 % on 10/19/17 Echo. VS/Pulse OX: 117/71 64 18 98.7 97 Chest X Ray: Cardiomegaly. No active cardiopulmonary disease. There is clearing of pleural fluid compared to old exam Treatment: Lasix PO In your professional opinion, can you please clarify the acuity and type of CHF if known? Systolic Heart Failure: Acute Chronic Acute on Chronic Diastolic Heart Failure: Acute Chronic Acute on Chronic Systolic & Diastolic Heart Failure: Acute Chronic Acute on Chronic Heart Failure Unable to Determine Other, please specify Please continue to document in your progress notes in order to capture severity of illness and risk of mortality. Include clinical findings that support your diagnosis. CHronic Diastolic CHF MTDD
[2018-01-19] MEDS ORDERED: BISACODYL 10 MG SUPP RECTAL STA (14:22)
[2018-01-19 15:08] VITALS: BP 125/77; PULSE 76; RESP 16; TEMP 98.4
== END 2018-01-19 17:20 | DRG 481 ==
LOC: EC 17:32 → 3SUR 21:30
PROVIDERS: ADMIT Orthopaedic Surgery; ATTEND Orthopaedic Surgery
PROC: 0QH706Z Insertion of Intramedullary Internal Fixation Device into Left Upper Femur, Open Approach (ICD-10-PCS; 2018-01-17)
PROC: 0QS7XZZ Reposition Left Upper Femur, External Approach (ICD-10-PCS; principal; 2018-01-17 07:30)
DX: S72.142A Displaced intertrochanteric fracture of left femur, initial encounter for closed fracture (principal); N17.9 Acute kidney failure, unspecified; I50.32 Chronic diastolic (congestive) heart failure; V00.831A Fall from motorized mobility scooter, initial encounter; I25.10 Atherosclerotic heart disease of native coronary artery without angina pectoris; I48.2 Chronic atrial fibrillation; D64.9 Anemia, unspecified; D72.829 Elevated white blood cell count, unspecified; E86.0 Dehydration; F10.20 Alcohol dependence, uncomplicated; I11.0 Hypertensive heart disease with heart failure; K59.00 Constipation, unspecified; T50.2X5A Adverse effect of carbonic-anhydrase inhibitors, benzothiadiazides and other diuretics, initial encounter; Z79.01 Long term (current) use of anticoagulants; Z79.82 Long term (current) use of aspirin; Z86.73 Personal history of transient ischemic attack (TIA), and cerebral infarction without residual deficits; Z96.651 Presence of right artificial knee joint; Z95.0 Presence of cardiac pacemaker; E03.9 Hypothyroidism, unspecified; Z79.890 Hormone replacement therapy; Z79.899 Other long term (current) drug therapy; Z98.42 Cataract extraction status, left eye; Z98.41 Cataract extraction status, right eye
CPT/HCPCS: 36415; 70450; 71045; 72125; 73502; 80048; 80320; 82306; 83735; 85025; 85027; 85610; 85730; 87086; 93005; 96374; 96376; 99285

== ENCOUNTER 2018-01-31 19:11 | Emergency (ER) | payer MEDICARE, BC ==
[2018-01-31] MEDS ORDERED: PROPARACAINE 0.5% OPHTH DROPS 15 ML BTL LEFT EYE STA (19:50)
--- NOTE | 2018-01-31 21:18 | ED ---
Eye Problem HPI - General Chief complaint: Eye Problems Stated complaint: Eye Problems Time Seen by Provider: 01/31/18 19:29 Source: patient Mode of arrival: EMS Limitations: no limitations - History of Present Illness Initial comments: 87-year-old male patient presents to the emergency department today for evaluation of blurred vision to the left eye. Patient states that symptoms started approximately 10 hours ago when he woke for the morning. Patient states that he does wear glasses for reading. He has had previous cataract removal surgery. Denies any history of similar symptoms or other surgeries to the eye. Patient denies any headache, numbness, tingling, or extremity weakness. He denies any flashing lights or black spots in his vision. Patient denies any dizziness. He denies any injury to the eye or foreign body sensation. Patient denies any recent rash, fever, chills, shortness breath, chest pain, abdominal pain, nausea, vomiting, diarrhea, constipation, back pain , hematuria, dysuria, urinary urgency, urinary frequency, or any other complaints. - Related Data Home Medications Medication Instructions Recorded Confirmed Levothyroxine Sodium [Synthroid] 150 mcg PO DAILY@0900 11/04/15 01/31/18 Apixaban [Eliquis] 2.5 mg PO BID@09,209901/15/18 01/31/18 Aspirin 81 mg PO DAILY@89901/15/18 01/31/18 Atorvastatin [Lipitor] 40 mg PO DAILY@209901/15/18 01/31/18 Furosemide [Lasix] 20 mg PO DAILY@1600 01/15/18 01/31/18 Furosemide [Lasix] 40 mg PO DAILY@89901/15/18 01/31/18 Lisinopril [Zestril] 2.5 mg PO DAILY@89901/15/18 01/31/18 Spironolactone [Aldactone] 25 mg PO DAILY@89901/15/18 01/31/18 Previous Rx's Medication Instructions Recorded Docusate [Colace] 100 mg PO BID #60 capsule 01/19/18 HYDROcodone/APAP 5-325MG [[place] 1 tab PO Q4HR PRN #42 tab 01/19/18 5-325] Sennosides [Senokot] 8.6 mg PO HS tab 01/19/18 Allergies Allergy/AdvReac Type Severity Reaction Status Date / Time No Known Allergies Allergy Verified 01/31/18 19:42 Review of Systems ROS Statement: Those systems with pertinent positive or pertinent negative responses have been documented in the HPI. ROS Other: All systems not noted in ROS Statement are negative. 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, bilateral cataract replacement Past Anesthesia/Blood Transfusion Reactions: No Reported Reaction Past Psychological History: No Psychological Hx Reported Smoking Status: Never smoker Past Alcohol Use History: Daily Past Drug Use History: None Reported - Past Family History Brother(s) Additional Family Medical History / Comment(s): osteomyelitis Mother Family Medical History: No Reported History Father Family Medical History: No Reported History General Exam Limitations: no limitations General appearance: alert, in no apparent distress, other (Physical well- developed, well-nourished elderly male patient in no acute distress. Vital signs upon presentation are temperature 99.5F, pulse 81, respirations 20, blood pressure 97/53, pulse ox 97% on room air.) Eye exam: Present: normal appearance, PERRL, EOMI, other (Performed fluorescein stain with Wood's lamp examination, no evidence of surface trauma to the globe. Intraocular pressure measured with tonometry, left eye pressures were between 11 and 12 mmHg, right eye pressure was 12 mm of mercury. Extraocular movements are intact. Retina appears intact with limited funduscopic examination via ophthalmoscope.). Absent: scleral icterus, conjunctival injection, periorbital swelling ENT exam: Present: normal exam, normal oropharynx, mucous membranes moist Respiratory exam: Present: normal lung sounds bilaterally. Absent: respiratory distress, wheezes, rales, rhonchi, stridor Cardiovascular Exam: Present: regular rate, normal rhythm, normal heart sounds. Absent: systolic murmur, diastolic murmur, rubs, gallop, clicks GI/Abdominal exam: Present: soft, normal bowel sounds. Absent: distended, tenderness, guarding, rebound, rigid Neurological exam: Present: alert, oriented X3, CN II-XII intact Expanded Patient oriented to: Present: person, place, time Speech: Present: fluid speech Cranial nerves: EOM's Intact: Normal, Tongue Deviation: Normal, Nystagmus: Normal Motor strength exam: RUE: 5, LUE: 5, RLE: 5, LLE: 5 Psychiatric exam: Present: normal affect, normal mood Skin exam: Present: warm, dry, intact, normal color. Absent: rash Course Vital Signs 01/31/18 01/31/18 19:20 21:52 Temperature 99.5 F 98.4 F Pulse Rate 81 67 Respiratory 20 16 Rate Blood Pressure 97/53 93/53 O2 Sat by Pulse 97 96 Oximetry Medical Decision Making - Medical Decision Making 87-year-old male patient presented to the emergency department today for evaluation of left eye blurriness started approximately 10 hours prior to arrival. Physical examination was unremarkable. Fluorescein stain showed no evidence of surface trauma. Intraocular pressure is normal. Visual acuity did reveal left eye 20/70, right eye 20/40, both eyes 20/30. Patient is neurologically intact with no focal deficits. Did discuss findings and results with the patient. We discussed that he needs to follow-up with echocardiograph tech for further evaluation. Return parameters were discussed in detail. He verbalizes understanding and agree with this plan. Disposition Clinical Impression: Visual disturbance Disposition: HOME SELF-CARE Condition: Good Instructions: Blurred Vision (ED) Additional Instructions: Follow-up with echocardiograph tech for recheck as soon as possible. Return here immediately for any new, worsening, or concerning symptoms. Is patient prescribed a controlled substance at d/c from ED?: No Referrals: Eber Cullen MD [Primary Care Provider] - 1-2 days Mark Bonilla MD [STAFF PHYSICIAN] - 1-2 days Time of Disposition: 21:18
[2018-01-31 21:53] VITALS: BP 93/53; PULSE 67; RESP 16; TEMP 98.4
== END 2018-01-31 22:26 | disposition home or self-care (01) ==
LOC: EC 19:11
DX: H53.8 Other visual disturbances (principal); I11.0 Hypertensive heart disease with heart failure; I50.9 Heart failure, unspecified; E07.9 Disorder of thyroid, unspecified; Z86.718 Personal history of other venous thrombosis and embolism; Z96.651 Presence of right artificial knee joint; Z79.01 Long term (current) use of anticoagulants; Z79.82 Long term (current) use of aspirin; Z79.899 Other long term (current) drug therapy; Z98.49 Cataract extraction status, unspecified eye
CPT/HCPCS: 99284